=== PATIENT | female | born 1965 | race African-American/Black ===

== ENCOUNTER 2017-08-23 01:25 | Inpatient (IN) | payer OTHER, MEDICARE ==
[~2017-08-23] VITALS: Ht 165.1 cm; Wt 63.5 kg
[2017-08-23] VITALS (7 sets, daily range): BP systolic 121–160; BP diastolic 73–95
--- NOTE | 2017-08-23 01:06 | Emergency Room Report ---
History of Present Illness General Chief Complaint: Chest Pain Source: Patient, Medical Record Present Illness HPI 51-year-old female with pmhx of hypertension, end-stage renal disease on dialysis Thursday, last dialysis was Thursday today, atrial fibrillation on Coumadin, CAD with one stent, p/w chest pain for 3 hours. Chest pain started while after getting back from dialysis. Localized to substernal area, no radiation to back or other areas, sharp in nature, gradual in onset. Occurred on rest. Denies SOB. Denies palpitations, diaphoresis, n/v. Denies fever, chills, cough, abd pain. Denies trauma.. Denies smoking, no family history of cardiac disease at a young age. EMS gave 325mg Allergies: Coded Allergies: No Known Allergies (Unverified , 02/26/16) Patient History Past Medical History: see triage record Past Surgical History: none Pertinent Family History: none Last Menstrual Period: N/A Reviewed Nursing Documentation: PMH: Agreed, PSxH: Agreed Nursing Documentation-PMH Past Medical History: No History, Except For Hx Cardiac Problems: Yes - AFIB, CHF Hx Hypertension: Yes Hx Cancer: No - Right hip arthroplasty 07/2017, spinal stenosis Hx Gastrointestinal Problems: No Hx Dialysis: Yes - , , Thu Hx Neurological Problems: Yes Hx Spinal Cord Injury: Yes Hx Weakness: Yes Physical Exam Vital Signs Date Time Temp Pulse Resp B/P (MAP) Pulse Ox O2 Delivery O2 Flow Rate FiO2 08/23/17 01:22 98.8 108 13 160/94 100 Room Air Procedures Critical Care Time Critical Care Time 40 minutes of CC time 51-year-old female, end stage renal disease, atrial fibrillation, presenting with chest pain VS: Tachycardic Airway patent. Not hypoxic. PLAN: IV access, labs, troponin Anticipate admission to Tele CC time also includes review of labs, review of EMR, discussion with family and paperwork from SNF, d/w hospitalist CC could include dosing of pressors, additional Abx CC time does not include procedures Medical Decision Making Diagnostic Impression: Primary Impression: ACS (acute coronary syndrome) Additional Impression: ESRD (end stage renal disease) ER Course 51 yo F esrd w/ cp DDX: ACS vs. CHF vs. pneumonia vs. gastritis/GERD vs. pneumothorax Plan: IV access, obtain labs including troponin, EKG, CXR ASA already given by ems Anticipate admission ER course: given pain meds Disposition: Patient requires admission for chest pain. Due to patient's history and comorbidities, patient has increased risk of acute cardiac event. Patient requires admission for further workup, serial troponin, and possible stress test/cath inpatient. D/W hospitalist Please note that this Emergency Department Report was dictated using [employer] quality [employer] technology software, occasionally this can lead to erroneous entry secondary to interpretation by the dictation equipment. EKG Diagnostic Results EP Interpretation: Yes Rate: Tachycardic Rhythm: Atrial fibrillation ST Segments: T wave inversion in V6 and lead 3 ASA given to patient: Yes Rhythm Strip EP Interpretation: Yes Rate: 100 and Rhythm: Atrial fibrillation Chest X-ray CXR: Ordered: Yes 1 view Indication: Chest pain EP interpretation: Yes Interpretation: Cardiomegaly Impression: Cardiomegaly Electronically signed by Esdras Eagle MD Last Vital Signs Date Time Temp Pulse Resp B/P (MAP) Pulse Ox O2 Delivery O2 Flow Rate FiO2 08/23/17 01:30 98.8 103 13 160/94 100 Room Air Disposition: ADMITTED INPATIENT Condition: Serious Esdras Eagle M.D. Aug 23, 2017 01:06
[2017-08-23 01:32] LABS: MEAN CORPUSCULAR HEMOGLOBIN 31.4 PG (27.0-31.0); MEAN CORPUSCULAR VOLUME 101 FL (80-99); MEAN PLATELET VOLUME 7.1 FL (6.5-10.1); PLATELET COUNT 162 K/UL (150-450); RED CELL DISTRIBUTION WIDTH 18.5 % (11.6-14.8); WHITE BLOOD COUNT 6.7 K/UL (4.8-10.8)
[2017-08-23] MEDS ORDERED: XANAX1 MG ORAL (01:45)
[2017-08-23] MEDS ORDERED: LABETALOL HCL100 MG ORAL (01:45)
[2017-08-23] MEDS ORDERED: SENSIPAR30 MG ORAL (01:45)
[2017-08-23] MEDS ORDERED: ELIQUIS2.5 MG PO (01:45)
[2017-08-23] MEDS ORDERED: RENVELA0.8 GM ORAL (01:45)
[2017-08-23] MEDS ORDERED: PROAIR HFA8.5 GM INH (01:45)
[2017-08-23] MEDS ORDERED: DILAUDID2 MG ORAL (01:45)
[2017-08-23] MEDS ORDERED: DOCUSATE SODIU100 MG ORAL (01:45)
[2017-08-23] MEDS ORDERED: ZOFRAN8 MG ORAL (01:45)
[2017-08-23 01:50] LABS: INR 1.1 (0.9-1.1)
[2017-08-23 01:51] LABS: ALANINE AMINOTRANSFERASE 11 U/L (12-78); ALBUMIN/GLOBULIN RATIO 0.6 (1.0-2.7); ANION GAP 9 mmol/L (5-15); ASPARTATE AMINO TRANSFERASE 16 U/L (15-37); CALCIUM 11.1 MG/DL (8.5-10.1); CARBON DIOXIDE 32 MMOL/L (21-32); CHLORIDE 97 MMOL/L (98-107); CREATININE 3.8 MG/DL (0.55-1.30); GLOMERULAR FILTRATION RATE 12.6 mL/min (>60); POTASSIUM 4.2 MMOL/L (3.5-5.1); SODIUM 138 MMOL/L (136-145); TOTAL PROTEIN 8.2 G/DL (6.4-8.2)
[2017-08-23 01:53] LABS: BAND NEUTROPHILS % (MANUAL) 0 % (0-8); BASOPHILS % (MANUAL) 0 % (0-2); EOSINOPHILS % (MANUAL) 5 % (0-3); LYMPHOCYTES % (MANUAL) 5 % (20-45); NEUTROPHILS % (MANUAL) 84 % (45-75); PLATELET ESTIMATE ADEQUATE; PLATELET MORPHOLOGY NORMAL; TOTAL CELLS COUNTED 100
[2017-08-23] MEDS ORDERED: HYDROmorphone 1mg/ml Carpuject IVP ONE (02:00)
[2017-08-23] MEDS ORDERED: dilTIAZem HCl 25mg/5ml Inj IVP ONE (06:15)
--- NOTE | 2017-08-23 11:09 | Diagnostic Imaging Report ---
Indication: Chest pain Technique: CHEST 1 VIEW Comparison:03/01/16 Findings: The heart is enlarged. There is pulmonary vascular prominence and redistribution. Hardware is present in the cervical spine. There is blunting of the left costophrenic angle. Right right angle is sharp. Impression: Cardiomegaly with congestive heart failure. Possible left pleural effusion versus chronic change. Hardware now present in the cervical spine from previous posterior fusion.
[2017-08-23] MEDS ORDERED: HYDROmorphone 2mg tab ORAL PRN (12:30)
[2017-08-23] MEDS ORDERED: Albuterol ud Inhalation HHN PRN (12:45)
[2017-08-23] MEDS: HYDROmorphone 1mg/ml Carpuject IVP PRN ×3 (13:09→23:51)
[2017-08-23] MEDS: Eliquis 2.5mg tablet ORAL SCH ×2 (13:11→21:21)
[2017-08-23] MEDS: ALPRAZolam 0.5mg tab ORAL SCH ×2 (13:11→21:17)
--- NOTE | 2017-08-23 16:28 | Cardiology Progress Note ---
Assessment/Plan Assessment/Plan The patient is seen and examined, full consult note will be dictated. Objective Last 24 Hour Vital Signs Date Time Temp Pulse Resp B/P (MAP) Pulse Ox O2 Delivery O2 Flow Rate FiO2 08/23/17 11:52 97.7 108 18 129/83 97 Room Air 08/23/17 08:52 97.0 107 20 136/95 98 Room Air 08/23/17 08:25 100 08/23/17 08:10 98.2 105 12 121/73 99 Room Air 08/23/17 07:50 98.2 105 12 121/73 99 Room Air 08/23/17 06:18 115 130/81 08/23/17 05:30 98.2 115 20 149/81 100 Room Air 08/23/17 03:30 98.4 110 19 158/89 100 Room Air 08/23/17 02:29 98.8 08/23/17 01:30 98.8 103 13 160/94 100 Room Air 08/23/17 01:30 103 13 Room Air 08/23/17 01:22 98.8 108 13 160/94 100 Room Air Laboratory Tests Test 08/23/17 01:24 White Blood Count 6.7 K/UL (4.8-10.8) Red Blood Count 2.50 M/UL (4.20-5.40) L Hemoglobin 7.8 G/DL (12.0-16.0) L Hematocrit 25.3 % (37.0-47.0) L Mean Corpuscular Volume 101 FL (80-99) H Mean Corpuscular Hemoglobin 31.4 PG (27.0-31.0) H Mean Corpuscular Hemoglobin Concent 31.0 G/DL (32.0-36.0) L Red Cell Distribution Width 18.5 % (11.6-14.8) H Platelet Count 162 K/UL (150-450) Mean Platelet Volume 7.1 FL (6.5-10.1) Neutrophils (%) (Auto) % (45.0-75.0) Lymphocytes (%) (Auto) % (20.0-45.0) Monocytes (%) (Auto) % (1.0-10.0) Eosinophils (%) (Auto) % (0.0-3.0) Basophils (%) (Auto) % (0.0-2.0) Differential Total Cells Counted 100 Neutrophils % (Manual) 84 % (45-75) H Lymphocytes % (Manual) 5 % (20-45) L Monocytes % (Manual) 6 % (1-10) Eosinophils % (Manual) 5 % (0-3) H Basophils % (Manual) 0 % (0-2) Band Neutrophils 0 % (0-8) Platelet Estimate Adequate Platelet Morphology Normal Prothrombin Time 11.0 SEC (9.30-11.50) Prothromb Time International Ratio 1.1 (0.9-1.1) Activated Partial Thromboplast Time 28 SEC (23-33) Sodium Level 138 MMOL/L (136-145) Potassium Level 4.2 MMOL/L (3.5-5.1) Chloride Level 97 MMOL/L (98-107) L Carbon Dioxide Level 32 MMOL/L (21-32) Anion Gap 9 mmol/L (5-15) Blood Urea Nitrogen 23 mg/dL (7-18) H Creatinine 3.8 MG/DL (0.55-1.30) H Estimat Glomerular Filtration Rate 12.6 mL/min (>60) Glucose Level 95 MG/DL (74-106) Calcium Level 11.1 MG/DL (8.5-10.1) H Total Bilirubin 0.3 MG/DL (0.2-1.0) Aspartate Amino Transf (AST/SGOT) 16 U/L (15-37) Alanine Aminotransferase (ALT/SGPT) 11 U/L (12-78) L Alkaline Phosphatase 783 U/L (46-116) H Troponin I 0.039 ng/mL (0.000-0.056) Pro-B-Type Natriuretic Peptide 9176 pg/mL (0-125) H Total Protein 8.2 G/DL (6.4-8.2) Albumin 3.1 G/DL (3.4-5.0) L Globulin 5.1 g/dL Albumin/Globulin Ratio 0.6 (1.0-2.7) L ALVINO LIZARRAGA Aug 23, 2017 16:28
[2017-08-23] MEDS: Docusate 100mg cap ORAL SCH (18:21)
[2017-08-23] MEDS ORDERED: Sensipar 30mg Tab ORAL SCH (21:00)
[2017-08-24 00:49] VITALS: BP 143/105
[2017-08-24] MEDS: HYDROmorphone 1mg/ml Carpuject IVP PRN ×3 (03:18→18:57)
[2017-08-24 04:00] VITALS: BP 136/95
[2017-08-24 08:07] LABS: MEAN CORPUSCULAR HEMOGLOBIN 32.8 PG (27.0-31.0); MEAN CORPUSCULAR HGB CONC 31.9 G/DL (32.0-36.0); MEAN CORPUSCULAR VOLUME 103 FL (80-99); MEAN PLATELET VOLUME 7.2 FL (6.5-10.1); PLATELET COUNT 142 K/UL (150-450); RED BLOOD COUNT 2.19 M/UL (4.20-5.40); RED CELL DISTRIBUTION WIDTH 18.8 % (11.6-14.8); WHITE BLOOD COUNT 3.9 K/UL (4.8-10.8)
[2017-08-24 08:17] LABS: INR 1.1 (0.9-1.1); PROTHROMBIN TIME 11.1 SEC (9.30-11.50)
--- NOTE | 2017-08-24 08:19 | Consultation ---
History of Present Illness General Date patient seen: Aug 24, 2017 Present Illness Allergies: Coded Allergies: No Known Allergies (Unverified , 02/26/16) Medication History Scheduled Albuterol Sulfate* (Proair Hfa*), 1 PUFF INH Q6H, (Reported) Cinacalcet* (Sensipar*), 30 MG ORAL DAILY, (Reported) Docusate Sodium* (Docusate Sodium*), 100 MG ORAL TWICE A DAY, (Reported) Hydromorphone HCl (Dilaudid), 2 MG ORAL Q4H, (Reported) Labetalol Hcl* (Normodyne*), 50 MG ORAL EVERY 12 HOURS, (Reported) Sevelamer Carbonate* (Renvela*), 1,600 MG ORAL THREE TIMES A DAY, (Reported) Scheduled PRN Alprazolam* (Xanax*), 1 TAB ORAL BID PRN for PRN Agitation/Anxiety, (Reported) Ondansetron Hcl* (Zofran*), 8 MG ORAL Q6H PRN for Nausea & Vomiting, (Reported) Miscellaneous Medications Apixaban (Eliquis), 2.5 MG PO, (Reported) Patient History Healthcare decision maker Resuscitation status Full Code Advanced Directive on File No Physical Exam Last 24 Hour Vital Signs Date Time Temp Pulse Resp B/P (MAP) Pulse Ox O2 Delivery O2 Flow Rate FiO2 08/24/17 06:00 136/95 08/24/17 04:00 98.1 114 18 136/95 100 Room Air 08/24/17 04:00 127 08/24/17 00:49 98.5 99 19 143/105 99 Room Air 08/24/17 00:00 114 08/23/17 23:25 145/105 08/23/17 21:18 93 147/91 08/23/17 20:00 129 08/23/17 20:00 98.0 80 18 147/91 93 Room Air 08/23/17 19:30 80 16 Room Air 21 08/23/17 18:22 111 147/101 08/23/17 18:00 147/101 08/23/17 16:00 112 08/23/17 11:52 97.7 108 18 129/83 97 Room Air 08/23/17 08:52 97.0 107 20 136/95 98 Room Air 08/23/17 08:25 100 Laboratory Tests Test 08/23/17 18:00 08/24/17 06:40 Troponin I 0.038 ng/mL (0.000-0.056) White Blood Count 3.9 K/UL (4.8-10.8) L Red Blood Count 2.19 M/UL (4.20-5.40) L Hemoglobin 7.2 G/DL (12.0-16.0) L Hematocrit 22.6 % (37.0-47.0) L Mean Corpuscular Volume 103 FL (80-99) H Mean Corpuscular Hemoglobin 32.8 PG (27.0-31.0) H Mean Corpuscular Hemoglobin Concent 31.9 G/DL (32.0-36.0) L Red Cell Distribution Width 18.8 % (11.6-14.8) H Platelet Count 142 K/UL (150-450) L Mean Platelet Volume 7.2 FL (6.5-10.1) Neutrophils (%) (Auto) % (45.0-75.0) Lymphocytes (%) (Auto) % (20.0-45.0) Monocytes (%) (Auto) % (1.0-10.0) Eosinophils (%) (Auto) % (0.0-3.0) Basophils (%) (Auto) % (0.0-2.0) Neutrophils % (Manual) Pending Lymphocytes % (Manual) Pending Platelet Estimate Pending Platelet Morphology Pending Prothrombin Time Pending Prothromb Time International Ratio Pending Sodium Level Pending Potassium Level Pending Chloride Level Pending Carbon Dioxide Level Pending Blood Urea Nitrogen Pending Creatinine Pending Estimat Glomerular Filtration Rate Pending Glucose Level Pending Hemoglobin A1c Pending Uric Acid Pending Calcium Level Pending Phosphorus Level Pending Magnesium Level Pending Iron Level Pending Unsaturated Iron Binding Pending Ferritin Pending Total Bilirubin Pending Gamma Glutamyl Transpeptidase Pending Aspartate Amino Transf (AST/SGOT) Pending Alanine Aminotransferase (ALT/SGPT) Pending Alkaline Phosphatase Pending C-Reactive Protein, Quantitative Pending Pro-B-Type Natriuretic Peptide Pending Total Protein Pending Albumin Pending Globulin Pending Triglycerides Level Pending Cholesterol Level Pending LDL Cholesterol Pending HDL Cholesterol Pending Cholesterol/HDL Ratio Pending Vitamin B12 Level Pending Folate Pending Thyroid Stimulating Hormone (TSH) Pending Height (Feet): 5 Height (Inches): 5.00 Weight (Pounds): 120 Medications Current Medications Medications (Trade) Dose Ordered Sig/Sneha Route PRN Reason Start Time Stop Time Status Last Admin Dose Admin Acetaminophen (Tylenol) 650 mg Q4H PRN ORAL Mild Pain/Temp > 100.5 08/23/17 12:30 09/22/17 12:29 Acetaminophen/ Hydrocodone Bitart ([place] 10/325) 1 ea Q4H PRN ORAL Moderate Pain 08/24/17 08:15 08/31/17 08:14 UNV Albuterol Sulfate (Proventil) 2.5 mg Q6H PRN HHN Shortness of Breath 08/23/17 12:45 08/28/17 12:44 Alprazolam (Xanax) 1 mg Q12HR ORAL 08/23/17 13:00 08/30/17 12:59 08/23/17 21:17 Apixaban (Eliquis) 2.5 mg BID ORAL 08/23/17 13:00 09/22/17 12:59 08/23/17 21:21 Cinacalcet (Sensipar) 90 mg QHS ORAL 08/23/17 21:00 09/23/17 08:59 08/23/17 21:19 Clonidine HCl (Catapres) 0.1 mg EVERY 6 HOURS ORAL 08/23/17 18:00 09/22/17 17:59 08/23/17 23:25 Docusate Sodium (Colace) 100 mg TWICE A DAY ORAL 08/23/17 18:00 09/22/17 17:59 08/23/17 18:21 Epoetin Brayan (Procrit (for ESRD on dialysis)) 10,000 units THU-THU-THU SUBQ 08/24/17 21:00 09/23/17 20:59 Hydromorphone HCl (Dilaudid) 1 mg Q4H PRN IVP Severe Pain (Pain Scale 7-10) 08/23/17 13:00 08/30/17 12:59 08/24/17 03:18 Labetalol HCl (Normodyne) 200 mg Q12HR ORAL 08/23/17 21:00 09/22/17 20:59 08/23/17 21:18 Nifedipine (Procardia XL) 30 mg DAILY ORAL 08/23/17 17:00 09/22/17 16:59 08/23/17 18:22 Ondansetron HCl (Zofran) 4 mg Q6H PRN IVP Nausea & Vomiting 08/23/17 12:30 09/22/17 12:29 Sevelamer Carbonate (Renvela) 1,600 mg THREE TIMES A DAY ORAL 08/23/17 13:00 09/22/17 12:59 08/23/17 18:22 Assessment/Plan Assessment/Plan (1) Right hip pain (2) Right hip Fx s/p ORIF (3) Cervical DDD (4) Cervical Spondylosis (5) Cervical Radiculopathy (6) H/o Cervical surgery seen dictated DAIJA FERRARI Aug 24, 2017 08:19
[2017-08-24 08:43] LABS: ALANINE AMINOTRANSFERASE 10 U/L (12-78); ALBUMIN/GLOBULIN RATIO 0.6 (1.0-2.7); ANION GAP 11 mmol/L (5-15); ASPARTATE AMINO TRANSFERASE 14 U/L (15-37); CALCIUM 9.4 MG/DL (8.5-10.1); CARBON DIOXIDE 31 MMOL/L (21-32); CHLORIDE 99 MMOL/L (98-107); CREATININE 5.6 MG/DL (0.55-1.30); GLOMERULAR FILTRATION RATE 9.8 mL/min (>60); POTASSIUM 4.5 MMOL/L (3.5-5.1); SODIUM 141 MMOL/L (136-145); TOTAL PROTEIN 7.5 G/DL (6.4-8.2)
[2017-08-24 08:49] LABS: CHOLESTEROL 159 MG/DL (< 200); CHOLESTEROL/HDL RATIO 1.8 (3.3-4.4); CRP QUANT 1.1 mg/dL (0.00-0.90); FERRITIN 555 NG/ML (8-388); MAGNESIUM 2.3 MG/DL (1.8-2.4); PHOSPHORUS 5.8 MG/DL (2.5-4.9); THYROID STIMULATING HORMONE 3.201 uiU/mL (0.360-3.740); URIC ACID 3.7 MG/DL (2.6-7.2)
[2017-08-24 08:51] LABS: ANISOCYTOSIS 1+; BAND NEUTROPHILS % (MANUAL) 0 % (0-8); BASOPHILS % (MANUAL) 0 % (0-2); EOSINOPHILS % (MANUAL) 8 % (0-3); HYPOCHROMASIA 1+; LYMPHOCYTES % (MANUAL) 12 % (20-45); MACROCYTES 1+; NEUTROPHILS % (MANUAL) 76 % (45-75); PLATELET ESTIMATE ADEQUATE; PLATELET MORPHOLOGY NORMAL; TOTAL CELLS COUNTED 100
[2017-08-24 08:56] LABS: HEMOGLOBIN A1C 5.6 % (4.3-6.0)
[2017-08-24] MEDS ORDERED: Sensipar 30mg Tab ORAL SCH (09:00)
[2017-08-24] MEDS ORDERED: Norco 10mg/325mg tab ORAL PRN (09:00)
[2017-08-24 09:16] LABS: FOLIC ACID 13.9 NG/ML (3.1-17.5); IRON 49 ug/dL (50-175); TOTAL IRON BINDING CAPACITY 204 ug/dL (250-450)
[2017-08-24] MEDS: ALPRAZolam 0.5mg tab ORAL SCH ×2 (09:36→22:25)
[2017-08-24] MEDS: Docusate 100mg cap ORAL SCH ×3 (09:36→17:49)
[2017-08-24] MEDS: Eliquis 2.5mg tablet ORAL SCH ×2 (09:37→17:49)
--- NOTE | 2017-08-24 11:31 | Consultation ---
Consult Note Consult Note asked to eval for dialysis management 51-year-old female with pmhx of hypertension, end-stage renal disease on dialysis Thursday, last dialysis was Thursday today, atrial fibrillation on Coumadin, CAD with one stent, p/w chest pain for 3 hours. Chest pain started while after getting back from dialysis. Localized to substernal area, no radiation to back or other areas, sharp in nature, gradual in onset. Occurred on rest. Denies SOB. Denies palpitations, diaphoresis, n/v. Denies fever, chills, cough, abd pain. Denies trauma.. Denies smoking, no family history of cardiac disease at a young age. EMS gave 325mg Past Medical History: No History, Except For Hx Cardiac Problems: Yes - AFIB, CHF Hx Hypertension: Yes Hx Cancer: No - Right hip arthroplasty 07/2017, spinal stenosis Hx Dialysis: Yes - , , Thu Hx Neurological Problems: Yes Hx Spinal Cord Injury: Yes Hx Weakness: Yes interviewed examined data reviewed Assessment/Plan ESRD Diaalysis via left thigh Cath- left arm aneurysmal fistual clotted CHF At fib HTN Right hip arthroplasty 07/2017, spinal stenosis cervical Radiculopathy ACS? HD and UF today- Cardio Advise- Vasc Surgical advise Keep BP and renal parameters in check 2 D Echo pending ALFREDO MONTEIRO Aug 24, 2017 11:31
[2017-08-24 11:33] VITALS: BP 121/92
--- NOTE | 2017-08-24 12:15 | Consultation ---
DATE OF CONSULTATION: 08/23/2017 HEMATOLOGY/ONCOLOGY CONSULTATION CONSULTING PHYSICIAN: Jasmeet Macias M.D. REFERRING PHYSICIAN: Keven Scott M.D. CURRENT COMPLAINTS AND HISTORY OF PRESENT ILLNESS: Dear Dr. Scott, Today, I had an opportunity to see one of your patients, Latisha Cordova, who you is well aware a 51-year-old delightful female with past medical history remarkable for anemia of kidney disease, end-stage renal disease, hemodialysis dependent, history of afib, anticoagulation with Coumadin. The patient ended up to have atypical chest pain. The patient ended up in [facility]. During evaluation, it was found that the patient developed significant anemia with hemoglobin of 7.8. My service was called to handle the issue of significant anemia. PAST MEDICAL HISTORY: 1. Anemia of chronic disease. 2. Anemia of kidney disease. 3. Atrial fibrillation. 4. Coronary artery disease. 5. History of spinal cord injury. 6. Hypertension. 7. Congestive heart failure. 8. Osteoarthritis/degenerative joint disease. 9. Status post right hip arthroplasty in July 2017. 10. Spinal stenosis. 11. History of spinal cord injury. 12. Generalized weakness. MEDICATIONS: 1. Epogen subcutaneous. 2. Labetalol. 3. Colace. 4. Catapres. 5. Procardia. 6. Xanax. 7. Eliquis. 8. Renvela. 9. . 10. Dilaudid. 11. Proventil. 12. Zofran. FAMILY HISTORY: Noncontributory. SOCIAL HISTORY: No history of smoking. No history of alcohol abuse. No history of illicit drug use. REVIEW OF SYSTEMS: GENERAL DESCRIPTION: The patient not in any significant distress, but was chronically ill. RESPIRATORY: Mild shortness of breath on exertion. GASTROINTESTINAL: The patient claimed constipation. PHYSICAL EXAMINATION: VITAL SIGNS: T-max 97, respiratory rate 20, heart rate 80, and blood pressure 130/80. HEENT: Head is normocephalic and atraumatic. NECK: Supple. No thyroid enlargement. No lymphadenopathy. LUNGS: Decreased breath sounds bilaterally with few rhonchi at the base. HEART: S1 and S2 regular. ABDOMEN: Soft and benign. No organomegaly present. Bowel sounds are present. EXTREMITIES: No cyanosis, clubbing, or edema. LABORATORY DATA: WBC is 6.7, hemoglobin 7.8, hematocrit 25.3, and platelets 162,000. INR 1.1. Creatinine 3.8. IMPRESSION: 1. Anemia of kidney disease. 2. Anemia of chronic disease. 3. Decreased hemoglobin and hematocrit, rule out gastrointestinal bleed. 4. History of anemia, iron deficiency. 5. End-stage renal disease, hemodialysis dependent. 6. Coronary artery disease. 7. Hypertension. 8. Congestive heart failure. 9. Osteoarthritis plus degenerative joint disease. 10. History of afib. 11. Anticoagulation with Eliquis. 12. Coronary artery disease. 13. Congestive heart failure. 14. History of spinal cord injury. 15. Weakness. RECOMMENDATIONS: 1. Watch count. 2. Watch coagulopathy. 3. PRBC transfusion p.r.n. basis. 4. Hemodialysis p.r.n. basis. 5. Ongoing anticoagulation with Eliquis. 6. Cardiology followup. 7. Nephrology followup. 8. Pulmonary followup. 9. Skin care. 10. Nutrition. 11. Close followup. Jasmeet Macias MD DR: Tiera JOB#: [id number] CC:
[2017-08-24 15:39] VITALS: BP 105/76
--- NOTE | 2017-08-24 16:00 | Consultation ---
DATE OF CONSULTATION: 08/24/2017 PAIN MANAGEMENT CONSULTATION CONSULTING PHYSICIAN: Mc Stockton M.D. PHYSICIAN [employer] ADVISOR: Ramya Chappell REFERRING PHYSICIAN: Keven Scott MD. CHIEF COMPLAINT: Neck and right hip pain. HISTORY OF PRESENT ILLNESS: The patient is a 51-year-old female, who is being seen on the telemetry floor of [facility] for initial comprehensive pain management consultation. The patient is reporting that she has been having right hip pain since July due to fracture status post fall, open reduction and internal fixation, has been in a residential, and was admitted into the hospital due to chest pain, ruling out ACS. At this time, also complaining of neck pain due to history of cervical surgery. As an outpatient, in the residential, receiving Dilaudid 2 mg tablet every four hours as needed for severe pain; however, when admitted into the hospital, the pain was severe and not tolerated well on tablets. Due to this, we started the patient on Dilaudid 1 mg IV every four hours as needed for severe pain and the patient is more comfortable at this time, in no acute distress. PAST MEDICAL HISTORY: Atrial fibrillation, CHF, hypertension, and end-stage renal disease, on hemodialysis. PAST SURGICAL HISTORY: Cervical surgery and right hip open reduction and internal fixation. SOCIAL HISTORY: She denies smoking tobacco, drinking alcohol, or drug abuse. ALLERGIES: No known drug allergies. MEDICATIONS: Albuterol, Sensipar, docusate, Dilaudid, Normodyne, Renvela, Xanax, Zofran, and Eliquis. REVIEW OF SYSTEMS: She denies rash, fever, chills, sweating, dizziness, drowsiness, blurred vision, sore throat, or change in weight. No shortness of breath or chest pain. No nausea, vomiting, diarrhea, or blood in the stool or urine. No bowel or bladder incontinence. No dysuria. She is complaining of right hip and neck pain. PHYSICAL EXAMINATION: GENERAL: Alert, awake, and oriented. VITAL SIGNS: Blood pressure 136/95, heart rate 114, oxygen saturation 100% respiratory rate is 18, and temperature is 98.1 degrees Fahrenheit. HEENT: PERRLA. NECK: Range of motion is decreased due to the patient's condition with tenderness as well as adenopathy with surgical scar noted in the midline of the posterior cervical area. LUNGS: Decreased breath sounds bilaterally. ABDOMEN: Benign. BACK: Range of motion is decreased in flexion and extension. EXTREMITIES/NEUROLOGICAL: Upper extremity motion is decreased due to the patient's condition. No cyanosis. No clubbing. No edema. Sensory is intact. Reflexes are not obtainable. No adenopathy. Lower extremity range of motion is decreased due to the patient's condition. No cyanosis. No clubbing. No edema. Sensory is reduced. Reflexes are not obtainable. No adenopathy. ASSESSMENT AND PLAN: This is a 51-year-old female with right hip pain, right hip fracture, status post open reduction and internal fixation, cervical degenerative disk disease, cervical spondylosis, cervical radiculopathy, and history of cervical fusion. The patient will be continued on Dilaudid 1 mg IV every four hours as needed for severe pain. We started her on [place] 10/325 mg one tablet every four hours as needed for moderate pain and parameters will be set to hold narcotics for oversedation or systolic blood pressure below 90 or diastolic blood pressure below 60. The patient was discussed with Dr. Stockton and Dr. Stockton concurred. We will follow the patient. Thank you very much for the courtesy of this consultation. Mc Stockton M.D. CHARISSE Chappell DR: Seng JOB#: [id number] CC:
[2017-08-24 16:54] VITALS: BP 109/85
--- NOTE | 2017-08-24 19:40 | Cardiology Report ---
APPROVED REPORT EXAM: Two-dimensional and M-mode echocardiogram with Doppler and color Doppler. INDICATION Congestive Heart Failure M-Mode DIMENSIONS IVSd1.4 (0.7-1.1cm)Left Atrium (MM)4.4 (1.6-4.0cm) LVDd4.3 (3.5-5.6cm)Aortic Root3.2 (2.0-3.7cm) PWd1.8 (0.7-1.1cm)Aortic Cusp Exc.2.0 (1.5-2.0cm) LVDs3.1 (2.5-4.0cm) PWs2.2 cm Normal left ventricular chamber size. Mild global left ventricular hypokinesia likely due to atrial fibrillation, left ventricular ejection fraction is estimated to be 40-45%. Ischemic cardiomyopathy cannot however, be excluded. Mild left ventricular hypertrophy. No evidence of pericardial effusion. Moderate left atrial enlargement. Severe right atrial enlargement Right ventricular chamber size is within normal limits. Focal aortic valve sclerosis with adequate cusp excursion. Thickened mitral valve leaflets with normal excursion. Severe mitral annular calcification is noted. Aortic root calcification is seen. Normal pulmonic valve structure . Normal tricuspid valve structure. IVC dilated at 2.4 cm with slight collapse suggestive of elavated RAP. A color flow and spectral Doppler study was performed and revealed: Mild mitral regurgitation. Left ventricular diastolic dysfunction not obtained due A-FIB . Moderate to severe tricuspid regurgitation. Tricuspid systolic velocities suggests peak right ventricular systolic pressure of 60 mmHg, consistent with severe pulmonary hypertension.
[2017-08-24 20:24] VITALS: BP 123/87
[2017-08-24] MEDS: DiphenhydrAMINE 50mg/ml Inj IVP PRN (22:24)
[2017-08-24] MEDS: Sensipar 30mg Tab ORAL SCH (22:24)
--- NOTE | 2017-08-24 22:29 | Cardiology Progress Note ---
Assessment/Plan Assessment/Plan 1. Atypical chest pain during HD, AMI is ruled out, echo reveals normal LV function, however WMA is seen in the anteroseptal wall, will schedule for stress test. 2. Hx of CAD, s/p PCI, continue ASA and statins. 3. Atrial fibrillation, continue Eliquis 4. Hx of HTN on labetolol and Nifedipine. Subjective Subjective No chest pain or SOB. No cardiac events. Objective Last 24 Hour Vital Signs Date Time Temp Pulse Resp B/P (MAP) Pulse Ox O2 Delivery O2 Flow Rate FiO2 08/24/17 20:24 97.2 128 20 123/87 100 08/24/17 19:30 97 16 Room Air 08/24/17 17:49 109/85 08/24/17 16:59 Room Air 21 08/24/17 16:59 Room Air 21 08/24/17 16:56 Room Air 08/24/17 16:54 97.6 16 109/85 Room Air 08/24/17 16:00 134 08/24/17 15:39 96.3 103 18 105/76 99 Room Air 08/24/17 12:30 Room Air 08/24/17 12:18 121/92 08/24/17 11:37 134 08/24/17 11:33 96.3 134 18 121/92 100 Room Air 08/24/17 09:38 67 136/95 08/24/17 09:37 67 136/95 08/24/17 08:37 67 16 Room Air 21 08/24/17 06:00 136/95 08/24/17 04:00 98.1 114 18 136/95 100 Room Air 08/24/17 04:00 127 08/24/17 00:49 98.5 99 19 143/105 99 Room Air 08/24/17 00:00 114 08/23/17 23:25 145/105 Intake and Output 08/24/17 08/25/17 19:00 07:00 Intake Total 120 ml Output Total 2117 ml Balance -1997 ml Intake Oral 120 ml Output Hemodialysis UF 2117 ml # Bowel Movements 1 2D Echo: LVEF 55%, RVSP 60 mmHg s/w severe pulmonary HTN. Laboratory Tests Test 08/24/17 06:40 White Blood Count 3.9 K/UL (4.8-10.8) L Red Blood Count 2.19 M/UL (4.20-5.40) L Hemoglobin 7.2 G/DL (12.0-16.0) L Hematocrit 22.6 % (37.0-47.0) L Mean Corpuscular Volume 103 FL (80-99) H Mean Corpuscular Hemoglobin 32.8 PG (27.0-31.0) H Mean Corpuscular Hemoglobin Concent 31.9 G/DL (32.0-36.0) L Red Cell Distribution Width 18.8 % (11.6-14.8) H Platelet Count 142 K/UL (150-450) L Mean Platelet Volume 7.2 FL (6.5-10.1) Neutrophils (%) (Auto) % (45.0-75.0) Lymphocytes (%) (Auto) % (20.0-45.0) Monocytes (%) (Auto) % (1.0-10.0) Eosinophils (%) (Auto) % (0.0-3.0) Basophils (%) (Auto) % (0.0-2.0) Differential Total Cells Counted 100 Neutrophils % (Manual) 76 % (45-75) H Lymphocytes % (Manual) 12 % (20-45) L Monocytes % (Manual) 4 % (1-10) Eosinophils % (Manual) 8 % (0-3) H Basophils % (Manual) 0 % (0-2) Band Neutrophils 0 % (0-8) Platelet Estimate Adequate Platelet Morphology Normal Hypochromasia 1+ Anisocytosis 1+ Macrocytosis 1+ Prothrombin Time 11.1 SEC (9.30-11.50) Prothromb Time International Ratio 1.1 (0.9-1.1) Sodium Level 141 MMOL/L (136-145) Potassium Level 4.5 MMOL/L (3.5-5.1) Chloride Level 99 MMOL/L (98-107) Carbon Dioxide Level 31 MMOL/L (21-32) Anion Gap 11 mmol/L (5-15) Blood Urea Nitrogen 40 mg/dL (7-18) H Creatinine 5.6 MG/DL (0.55-1.30) H Estimat Glomerular Filtration Rate 9.8 mL/min (>60) Glucose Level 100 MG/DL (74-106) Hemoglobin A1c 5.6 % (4.3-6.0) Uric Acid 3.7 MG/DL (2.6-7.2) Calcium Level 9.4 MG/DL (8.5-10.1) Phosphorus Level 5.8 MG/DL (2.5-4.9) H Magnesium Level 2.3 MG/DL (1.8-2.4) Iron Level 49 ug/dL (50-175) L Total Iron Binding Capacity 204 ug/dL (250-450) L Percent Iron Saturation 24 % (15-50) Unsaturated Iron Binding 155 ug/dL (112-346) Ferritin 555 NG/ML (8-388) H Total Bilirubin 0.3 MG/DL (0.2-1.0) Gamma Glutamyl Transpeptidase 43 U/L (5-85) Aspartate Amino Transf (AST/SGOT) 14 U/L (15-37) L Alanine Aminotransferase (ALT/SGPT) 10 U/L (12-78) L Alkaline Phosphatase 685 U/L (46-116) H C-Reactive Protein, Quantitative 1.1 mg/dL (0.00-0.90) H Pro-B-Type Natriuretic Peptide 75748 pg/mL (0-125) H Total Protein 7.5 G/DL (6.4-8.2) Albumin 2.8 G/DL (3.4-5.0) L Globulin 4.7 g/dL Albumin/Globulin Ratio 0.6 (1.0-2.7) L Triglycerides Level 33 MG/DL (0-200) Cholesterol Level 159 MG/DL (< 200) LDL Cholesterol 61 mg/dL (<100) HDL Cholesterol 86 MG/DL (40-60) H Cholesterol/HDL Ratio 1.8 (3.3-4.4) L Vitamin B12 Level 638 PG/ML (193-986) Folate 13.9 NG/ML (3.1-17.5) Thyroid Stimulating Hormone (TSH) 3.201 uiU/mL (0.360-3.740) Objective HEENT: PERRLA, EOMI, Anicteric , pale conjunctiva. NECK: No JVD, carotid upstroke 2+ B/L with o bruit LUNGS: Decreased breath sounds bilaterally. CVS: Normal S1S2, irregularly irregular, 2/6 MSM at LSB. ABDOMEN: Benign, NT/ND, + BS Ext: No evidence of edema, clubbing or cyanosis. ALVINO LIZARRAGA Aug 24, 2017 22:29
--- NOTE | 2017-08-24 22:33 | General Progress Note ---
Subjective Allergies: Coded Allergies: No Known Allergies (Unverified , 02/26/16) Objective Last 24 Hour Vital Signs Date Time Temp Pulse Resp B/P (MAP) Pulse Ox O2 Delivery O2 Flow Rate FiO2 08/24/17 22:28 128 123/87 08/24/17 20:24 97.2 128 20 123/87 100 08/24/17 19:30 97 16 Room Air 08/24/17 17:49 109/85 08/24/17 16:59 Room Air 08/24/17 16:59 Room Air 08/24/17 16:56 Room Air 08/24/17 16:54 97.6 16 109/85 Room Air 08/24/17 16:00 134 08/24/17 15:39 96.3 103 18 105/76 99 Room Air 08/24/17 12:30 Room Air 08/24/17 12:18 121/92 08/24/17 11:37 134 08/24/17 11:33 96.3 134 18 121/92 100 Room Air 08/24/17 09:38 67 136/95 08/24/17 09:37 67 136/95 08/24/17 08:37 67 16 Room Air 08/24/17 06:00 136/95 08/24/17 04:00 98.1 114 18 136/95 100 Room Air 08/24/17 04:00 127 08/24/17 00:49 98.5 99 19 143/105 99 Room Air 08/24/17 00:00 114 08/23/17 23:25 145/105 Intake and Output 08/24/17 08/25/17 19:00 07:00 Intake Total 120 ml Output Total 2117 ml Balance -1997 ml Intake Oral 120 ml Output Hemodialysis UF 2117 ml # Bowel Movements 1 Laboratory Tests 08/24/17 06:40: White Blood Count 3.9L, Red Blood Count 2.19L, Hemoglobin 7.2L, Hematocrit 22.6L , Mean Corpuscular Volume 103H, Mean Corpuscular Hemoglobin 32.8H, Mean Corpuscular Hemoglobin Concent 31.9L, Red Cell Distribution Width 18.8H, Platelet Count 142L, Mean Platelet Volume 7.2, Neutrophils (%) (Auto) , Lymphocytes (%) (Auto) , Monocytes (%) (Auto) , Eosinophils (%) (Auto) , Basophils (%) (Auto) , Differential Total Cells Counted 100, Neutrophils % ( Manual) 76H, Lymphocytes % (Manual) 12L, Monocytes % (Manual) 4, Eosinophils % ( Manual) 8H, Basophils % (Manual) 0, Band Neutrophils 0, Platelet Estimate Adequate, Platelet Morphology Normal, Hypochromasia 1+, Anisocytosis 1+, Macrocytosis 1+, Prothrombin Time 11.1, Prothromb Time International Ratio 1.1, Sodium Level 141, Potassium Level 4.5, Chloride Level 99, Carbon Dioxide Level 31, Anion Gap 11, Blood Urea Nitrogen 40H, Creatinine 5.6H, Estimat Glomerular Filtration Rate 9.8, Glucose Level 100, Hemoglobin A1c 5.6, Uric Acid 3.7, Calcium Level 9.4, Phosphorus Level 5.8H, Magnesium Level 2.3, Iron Level 49L, Total Iron Binding Capacity 204L, Percent Iron Saturation 24, Unsaturated Iron Binding 155, Ferritin 555H, Total Bilirubin 0.3, Gamma Glutamyl Transpeptidase 43, Aspartate Amino Transf (AST/SGOT) 14L, Alanine Aminotransferase (ALT/SGPT) 10L, Alkaline Phosphatase 685H, C-Reactive Protein, Quantitative 1.1H, Pro-B- Type Natriuretic Peptide 83323T, Total Protein 7.5, Albumin 2.8L, Globulin 4.7, Albumin/Globulin Ratio 0.6L, Triglycerides Level 33, Cholesterol Level 159, LDL Cholesterol 61, HDL Cholesterol 86H, Cholesterol/HDL Ratio 1.8L, Vitamin B12 Level 638, Folate 13.9, Thyroid Stimulating Hormone (TSH) 3.201 Height (Feet): 5 Height (Inches): 5.00 Weight (Pounds): 120 Lauri Macias Aug 24, 2017 22:33
[2017-08-24] MEDS: Epogen (for ESRD on dialysis) SUBQ SCH (22:55)
[2017-08-25] VITALS (7 sets, daily range): BP systolic 111–158; BP diastolic 79–99
--- NOTE | 2017-08-25 01:45 | Consultation ---
DATE OF CONSULTATION: 08/23/2017 CARDIOLOGY CONSULTATION CONSULTING PHYSICIAN: Kishan Lockett M.D. REQUESTING PHYSICIAN: Keven Scott M.D. REASON FOR CONSULTATION: Management of chest pain. HISTORY OF PRESENT ILLNESS: The patient is a very unfortunate 51-year-old female who presented to the hospital with chest pain started while she was having dialysis. The patient states that the chest pain was sharp in the left precordial area. She also complains of swelling over the left axillary area. She believes that she does not get enough hemodialysis and demanding for another session of hemodialysis. She has a history of end-stage renal disease on three days dialysis as well as hypertension, and atrial fibrillation, on Eliquis therapy. Her cardiac history is also significant for history of coronary artery disease, status post percutaneous coronary intervention in the past. PAST MEDICAL HISTORY: As mentioned above includin. End-stage renal disease, on dialysis Thursday, , and Thursday. 2. Hypertension. 3. Atrial fibrillation. 4. Coronary artery disease, status post PCI. 5. History of congestive heart failure. 6. History of spinal stenosis. PAST SURGICAL HISTORY: Right hip arthroplasty in July 2017 and history of AV fistula placement. MEDICATIONS: List of medication includes ProAir one puff inhaler q.6 h., Xanax one tablet p.o. twice daily, Eliquis 2.5 mg twice daily, Sensipar 30 mg p.o. daily, Colace 100 mg twice daily, Dilaudid 2 mg every four hours, Normodyne 50 mg q.12 h., Zofran 8 mg q.6 h. p.r.n. nausea and vomiting, and Renvela 1600 mg three times a day. ALLERGIES: No known drug allergies. HABITS: Denies any tobacco, alcohol, or illicit drug use. FAMILY HISTORY: No premature coronary artery disease in first-degree relatives. REVIEW OF SYSTEMS: HEENT: Denies any headache, diplopia, or blurred vision. CONSTITUTIONAL: Denies any fever, chills, night sweats, or weight loss. CARDIOVASCULAR: Chest pain as mentioned above. No shortness of breath. Denies any PND, orthopnea, leg swelling, syncope, or palpitation. PULMONARY: Denies any cough, hemoptysis, or wheezing. GASTROINTESTINAL: Denies any nausea, vomiting, diarrhea, constipation, abdominal pain, or GI bleed. GENITOURINARY: On hemodialysis three days a week. MUSCULOSKELETAL: Denies any arthralgia, myalgia, or any joint pain. History of right hip arthroplasty. NEUROLOGIC: Denies any motor dysfunction, sensory deficit, or altered speech. PHYSICAL EXAMINATION: VITAL SIGNS: Blood pressure at the time of arrival to the hospital was 160/94, heart rate of 108, respirations of 13, temperature 98.8 degrees Fahrenheit, and O2 saturation of 100% on room air. GENERAL: The patient is a very pleasant 51-year-old female concerned about the fact that she has been under dialyzed. No chest pain at this time. HEENT: Atraumatic and normocephalic. ENT, pupils are equal, round, and reactive to light and accommodation. Extraocular muscles intact. NECK: JVP less than 5 cm. No carotid bruit. Carotid upstrokes 2+ bilaterally. CARDIOVASCULAR: Normal S1 and S2. Tachycardic. A 2/6 mid systolic murmur at the left sternal border. PMI is at fourth intercostal space in the midclavicular line. LUNGS: Clear to auscultation bilaterally. ABDOMEN: Soft, nontender, and nondistended. No hepatosplenomegaly. Positive bowel sounds. EXTREMITIES: No evidence of edema, clubbing, or cyanosis. LABORATORY FINDINGS: WBC of 6.7, hemoglobin of 7.8, hematocrit of 25.3, and platelet count 162,000. Chemistry shows sodium of 138, potassium is 4.2, chloride 97, bicarbonate 32, BUN of 23, creatinine 3.8, glucose is 95, and calcium is 11.1, Troponin I x2 negative. ProBNP was 9176. Total cholesterol was 159, LDL cholesterol was 61, HDL was 86, and triglycerides was 33. INR was 1.1. A 2D echocardiography from 08/23/2017 had shown septal anterior wall hypokinesia with LVEF approximately 50% to 55%, moderate left atrial enlargement, severe right atrial enlargement, mild mitral regurgitation, moderate to severe tricuspid regurgitation with right ventricular systolic pressure measured at 60 mmHg consistent with severe pulmonary hypertension. A 12-lead electrocardiogram showed atrial fibrillation with rapid ventricular response at a rate of 100, T-wave inversion in lead V6 and lead III. Chest x-ray showed cardiomegaly with congestive heart failure, possible left pleural effusion versus chronic changes and presence of a hardware in the cervical spine. ASSESSMENT AND PLAN: The patient is a very unfortunate 51-year-old female, seen in Cardiology consultation at the request of Dr. Scott. 1. Most likely chest pain due to accelerated hypertension or hypervolemia. A 2D echocardiography has shown some wall motion abnormalities in the septal and anterior wall. Overall left ventricular ejection fraction was 50% to 55%. Acute myocardial infarction is ruled out. We will continue conservative management. 2. Hypertensive heart disease with relatively well controlled left ventricular ejection fraction. 3. Atrial fibrillation. We will continue with Eliquis to further prevent in future thromboembolic events. 4. History of coronary artery disease, status post percutaneous coronary intervention. 5. History of congestive heart failure, possibly diastolic heart failure. I would like to thank, Dr. Scott, for allowing me to participate in the care of this patient. Kishan Lockett M.D. DR: Jaspreet JOB#: [id number] CC:
[2017-08-25] MEDS: HYDROmorphone 1mg/ml Carpuject IVP PRN ×4 (04:48→22:32)
[2017-08-25] MEDS: DiphenhydrAMINE 50mg/ml Inj IVP PRN ×3 (06:17→21:05)
[2017-08-25 08:08] LABS: MEAN CORPUSCULAR HGB CONC 31.8 G/DL (32.0-36.0); MEAN CORPUSCULAR VOLUME 101 FL (80-99); MEAN PLATELET VOLUME 7.3 FL (6.5-10.1); PLATELET COUNT 133 K/UL (150-450); RED BLOOD COUNT 2.42 M/UL (4.20-5.40); RED CELL DISTRIBUTION WIDTH 19.3 % (11.6-14.8)
--- NOTE | 2017-08-25 08:31 | History and Physical Report ---
DATE OF ADMISSION: 08/23/2017 HISTORY OF PRESENT ILLNESS: The patient comes in with chest pain. The patient is well known to [facility] and according to is noncompliant with AV fistula. The patient has a clotted fistula and she has not been following up. The patient has end-stage renal disease, on hemodialysis. Has evidence of pleural effusion as well as . The patient has been complaining of chest pain and worsening shortness of breath, and orthopnea. Denies radiation. Denies nausea, vomiting, or diarrhea. Denies heartburn. Denies any back pain. Denies any palpitation or diaphoresis. PAST MEDICAL HISTORY: Significant for end-stage renal disease, on hemodialysis, anxiety, history of clotted fistula, constipation, chronic pain syndrome, hypertension, PTSD, and atrial fibrillation. PAST SURGICAL HISTORY: The patient has left arm fistula as well as . MEDICATIONS: Eliquis, Xanax, ProAir, labetalol, Renagel, and Zofran. ALLERGIES: No known allergies. SOCIAL HISTORY: Denies history of smoking, illicit drugs, or alcohol abuse. FAMILY HISTORY: Does have history of diabetes and hypertension. REVIEW OF SYSTEMS: HEENT: Denies headaches. RESPIRATORY: She has shortness of breath and cough. CARDIOVASCULAR: Does have chest pain for one day. Denies orthopnea. Denies radiation. GASTROINTESTINAL: Denies nausea, vomiting, or diarrhea. EXTREMITIES: Denies pain. CENTRAL NERVOUS SYSTEM: No change in vision or speech pattern. Appears weak. PHYSICAL EXAMINATION: VITAL SIGNS: Temperature 96.3 degrees, pulse is 103, blood pressure is 105/76. HEENT: PERRLA. NECK: Supple. No lymphadenopathy. CHEST: Clear to auscultation. CARDIOVASCULAR: Regular rate and rhythm. GASTROINTESTINAL: Soft, nontender, and nondistended. No organomegaly. EXTREMITIES: No edema. Reflexes are equal on both sides. There is some thrilling on the left arm fistula. Moves all extremities. LABORATORY AND DIAGNOSTIC DATA: WBC of 6.7, hemoglobin 7.8, platelets 162. Sodium 138, potassium 4.2, BUN 20, creatinine 3.8, glucose of 95. EKG no significant changes. Troponin 0.39. Calcium is 11. ASSESSMENT: 1. Hypertension. 2. End-stage renal disease, currently on hemodialysis. 3. Left pleural effusion. 4. Dyspnea 5. Chest pain. 6. History of chronic atrial fibrillation. 7. Has a dialysis access. 8. I have asked , Dr. Lockett, and Dr. Miles to see the patient with above-mentioned diagnoses and treatment. Keven Scott M.D. DR: Vicente JOB#: [id number] CC:
--- NOTE | 2017-08-25 08:53 | General Progress Note ---
Assessment/Plan Assessment/Plan (1) Right hip pain (2) Right hip Fx s/p ORIF (3) Cervical DDD (4) Cervical Spondylosis (5) Cervical Radiculopathy (6) H/o Cervical surgery Pt to be continued on the Dilaudid and Trout D/w Dr. Stockton and he concurred. Subjective Date patient seen: Aug 25, 2017 Allergies: Coded Allergies: No Known Allergies (Unverified , 02/26/16) Subjective REVIEW OF SYSTEMS: She denies rash, fever, chills, sweating, dizziness, drowsiness, blurred vision, sore throat, or change in weight. No shortness of breath or chest pain. No nausea, vomiting, diarrhea, or blood in the stool or urine. No bowel or bladder incontinence. No dysuria. She is complaining of right hip and neck pain. SUBJECTIVE: Pain is controlled and tolerated on the Dilaudid and Trout. Objective Last 24 Hour Vital Signs Date Time Temp Pulse Resp B/P (MAP) Pulse Ox O2 Delivery O2 Flow Rate FiO2 08/25/17 08:00 97.9 139 20 148/93 96 Nasal Cannula 2.0 08/25/17 07:40 100 16 Room Air 21 08/25/17 06:17 142/96 08/25/17 04:20 97.7 122 20 142/96 100 Nasal Cannula 2.0 08/25/17 04:00 139 08/25/17 01:39 157/100 08/25/17 01:34 97.8 80 20 158/92 100 Room Air 08/25/17 00:00 133 08/24/17 22:28 128 123/87 08/24/17 20:24 97.2 128 20 123/87 100 08/24/17 20:00 128 08/24/17 19:30 97 16 Room Air 21 08/24/17 17:49 109/85 08/24/17 16:59 Room Air 21 08/24/17 16:59 Room Air 21 08/24/17 16:56 Room Air 08/24/17 16:54 97.6 16 109/85 Room Air 08/24/17 16:00 134 08/24/17 15:39 96.3 103 18 105/76 99 Room Air 08/24/17 12:30 Room Air 08/24/17 12:18 121/92 08/24/17 11:37 134 08/24/17 11:33 96.3 134 18 121/92 100 Room Air 08/24/17 09:38 67 136/95 08/24/17 09:37 67 136/95 Laboratory Tests 08/25/17 06:50: White Blood Count 5.0, Red Blood Count 2.42L, Hemoglobin 7.7L, Hematocrit 24.3L , Mean Corpuscular Volume 101H, Mean Corpuscular Hemoglobin 32.0H, Mean Corpuscular Hemoglobin Concent 31.8L, Red Cell Distribution Width 19.3H, Platelet Count 133L, Mean Platelet Volume 7.3, Neutrophils (%) (Auto) , Lymphocytes (%) (Auto) , Monocytes (%) (Auto) , Eosinophils (%) (Auto) , Basophils (%) (Auto) , Neutrophils % (Manual) [Pending], Lymphocytes % (Manual) [Pending], Platelet Estimate [Pending], Platelet Morphology [Pending] Height (Feet): 5 Height (Inches): 5.00 Weight (Pounds): 120 Objective GENERAL: Alert, awake, and oriented. HEENT: PERRLA. NECK: Range of motion is decreased due to the patient's condition with tenderness as well as adenopathy with surgical scar noted in the midline of the posterior cervical area. LUNGS: Decreased breath sounds bilaterally. ABDOMEN: Benign. BACK: Range of motion is decreased in flexion and extension. EXTREMITIES: No cyanosis. No clubbing. NEUROLOGICAL: No changes. DAIJA FERRARI Aug 25, 2017 08:52
[2017-08-25] MEDS: ALPRAZolam 0.5mg tab ORAL SCH ×2 (08:59→21:00)
[2017-08-25] MEDS: Docusate 100mg cap ORAL SCH ×3 (08:59→17:56)
[2017-08-25] MEDS: Eliquis 2.5mg tablet ORAL SCH ×2 (09:00→17:56)
[2017-08-25 09:50] LABS: BAND NEUTROPHILS % (MANUAL) 1 % (0-8); BASOPHILS % (MANUAL) 0 % (0-2); EOSINOPHILS % (MANUAL) 10 % (0-3); LYMPHOCYTES % (MANUAL) 7 % (20-45); NEUTROPHILS % (MANUAL) 76 % (45-75); PLATELET ESTIMATE DECREASED; PLATELET MORPHOLOGY NORMAL; TOTAL CELLS COUNTED 100
[2017-08-25 09:51] LABS: ANISOCYTOSIS 2+; HYPOCHROMASIA 1+; MACROCYTES 1+
--- NOTE | 2017-08-25 11:58 | Diagnostic Imaging Report ---
APPROVED REPORT CPT Code: 68891 Present Symptoms Lower Extremity Pain: Comments: Hx dialysis. BILATERAL: Imaging reveals a patent deep venous system bilaterally. There is no evidence of thrombus within the femoral, popliteal or tibial segments. The greater saphenous veins are also within normal limits. Doppler indicates normal spontaneous flow within these segments. Incidental findings: Lymph node in the right inguinal area measuring 2.3 cm x 0.6 cm. Minimal irregular left common femoral artery calcified plaque.
--- NOTE | 2017-08-25 14:13 | Nephrology Progress Note ---
Assessment/Plan Problem List: (1) ESRD (end stage renal disease) (2) Cardiomegaly (3) Atrial fibrillation with RVR (4) Pleural effusion, left Assessment ESRD Diaalysis via left thigh Cath- ( left arm aneurysmal fistual clotted) left femoral permacath malfunctions CHF Ej Fx 40% global hypokinesis At fib HTN Right hip arthroplasty 07/2017, spinal stenosis cervical Radiculopathy ACS? Plan HD and UF done 08/24 next 08/26 Patient refuses change of malfunction permacath continue Cardio Advise- Vasc Surgical advise- none available yet Keep BP and renal parameters in check adjust BP meds 2 D Echo global hypokinesis and EjFx 40% Subjective ROS Limited/Unobtainable: No Constitutional: Reports: malaise, weakness Objective Objective Last 24 Hour Vital Signs Date Time Temp Pulse Resp B/P (MAP) Pulse Ox O2 Delivery O2 Flow Rate FiO2 08/25/17 12:00 109 08/25/17 11:59 97.0 111 20 115/85 100 Nasal Cannula 2.0 08/25/17 11:45 115/85 08/25/17 09:00 139 148/93 08/25/17 08:59 139 148/93 08/25/17 08:00 126 08/25/17 08:00 97.9 139 20 148/93 96 Nasal Cannula 2.0 08/25/17 07:40 100 16 Room Air 21 08/25/17 06:17 142/96 08/25/17 04:20 97.7 122 20 142/96 100 Nasal Cannula 2.0 08/25/17 04:00 139 08/25/17 01:39 157/100 08/25/17 01:34 97.8 80 20 158/92 100 Room Air 08/25/17 00:00 133 08/24/17 22:28 128 123/87 08/24/17 20:24 97.2 128 20 123/87 100 08/24/17 20:00 128 08/24/17 19:30 97 16 Room Air 21 08/24/17 17:49 109/85 08/24/17 16:59 Room Air 21 08/24/17 16:59 Room Air 21 08/24/17 16:56 Room Air 08/24/17 16:54 97.6 16 109/85 Room Air 08/24/17 16:00 134 08/24/17 15:39 96.3 103 18 105/76 99 Room Air Intake and Output 08/25/17 08/26/17 19:00 07:00 # Bowel Movements 1 Laboratory Tests 08/25/17 06:50: White Blood Count 5.0, Red Blood Count 2.42L, Hemoglobin 7.7L, Hematocrit 24.3L , Mean Corpuscular Volume 101H, Mean Corpuscular Hemoglobin 32.0H, Mean Corpuscular Hemoglobin Concent 31.8L, Red Cell Distribution Width 19.3H, Platelet Count 133L, Mean Platelet Volume 7.3, Neutrophils (%) (Auto) , Lymphocytes (%) (Auto) , Monocytes (%) (Auto) , Eosinophils (%) (Auto) , Basophils (%) (Auto) , Differential Total Cells Counted 100, Neutrophils % ( Manual) 76H, Lymphocytes % (Manual) 7L, Monocytes % (Manual) 6, Eosinophils % ( Manual) 10H, Basophils % (Manual) 0, Band Neutrophils 1, Platelet Estimate DecreasedL, Platelet Morphology Normal, Hypochromasia 1+, Anisocytosis 2+, Macrocytosis 1+ Height (Feet): 5 Height (Inches): 5.00 Weight (Pounds): 120 General Appearance: mild distress Cardiovascular: tachycardia Respiratory/Chest: decreased breath sounds Abdomen: soft, distended Extremities: other - catheter left thigh Objective no other changes ALFREDO MONTEIRO Aug 25, 2017 14:13
--- NOTE | 2017-08-25 16:21 | General Progress Note ---
Assessment/Plan Assessment/Plan IMPRESSION/PLAN: 1. Anemia of kidney disease. Nephrology service following 2. Anemia of chronic disease. No evidence of iron deficiency 3. End-stage renal disease, hemodialysis dependent. 4. Coronary artery disease. 5. Hypertension. 6. Congestive heart failure. Subjective Cardiovascular: Reports: chest pain Allergies: Coded Allergies: No Known Allergies (Unverified , 02/26/16) Subjective HD today Objective Last 24 Hour Vital Signs Date Time Temp Pulse Resp B/P (MAP) Pulse Ox O2 Delivery O2 Flow Rate FiO2 08/25/17 12:00 109 08/25/17 11:59 97.0 111 20 115/85 100 Nasal Cannula 2.0 08/25/17 11:45 115/85 08/25/17 09:00 139 148/93 08/25/17 08:59 139 148/93 08/25/17 08:00 126 08/25/17 08:00 97.9 139 20 148/93 96 Nasal Cannula 2.0 08/25/17 07:40 100 16 Room Air 21 08/25/17 06:17 142/96 08/25/17 04:20 97.7 122 20 142/96 100 Nasal Cannula 2.0 08/25/17 04:00 139 08/25/17 01:39 157/100 08/25/17 01:34 97.8 80 20 158/92 100 Room Air 08/25/17 00:00 133 08/24/17 22:28 128 123/87 08/24/17 20:24 97.2 128 20 123/87 100 08/24/17 20:00 128 08/24/17 19:30 97 16 Room Air 08/24/17 17:49 109/85 08/24/17 16:59 Room Air 21 08/24/17 16:59 Room Air 21 08/24/17 16:56 Room Air 08/24/17 16:54 97.6 16 109/85 Room Air Intake and Output 08/25/17 08/26/17 19:00 07:00 # Bowel Movements 1 Laboratory Tests 08/25/17 06:50: White Blood Count 5.0, Red Blood Count 2.42L, Hemoglobin 7.7L, Hematocrit 24.3L , Mean Corpuscular Volume 101H, Mean Corpuscular Hemoglobin 32.0H, Mean Corpuscular Hemoglobin Concent 31.8L, Red Cell Distribution Width 19.3H, Platelet Count 133L, Mean Platelet Volume 7.3, Neutrophils (%) (Auto) , Lymphocytes (%) (Auto) , Monocytes (%) (Auto) , Eosinophils (%) (Auto) , Basophils (%) (Auto) , Differential Total Cells Counted 100, Neutrophils % ( Manual) 76H, Lymphocytes % (Manual) 7L, Monocytes % (Manual) 6, Eosinophils % ( Manual) 10H, Basophils % (Manual) 0, Band Neutrophils 1, Platelet Estimate DecreasedL, Platelet Morphology Normal, Hypochromasia 1+, Anisocytosis 2+, Macrocytosis 1+ Height (Feet): 5 Height (Inches): 5.00 Weight (Pounds): 120 General Appearance: no apparent distress EENT: normal ENT inspection Neck: non-tender Cardiovascular: normal peripheral pulses Respiratory/Chest: chest wall non-tender, lungs clear Edema: trace edema 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
[2017-08-25] MEDS: Sensipar 30mg Tab ORAL SCH (21:05)
--- NOTE | 2017-08-25 21:22 | General Progress Note ---
Assessment/Plan Problem List: (1) Chest pain ICD Codes: R07.9 - Chest pain, unspecified SNOMED: 72869304 (2) Cervical radiculopathy ICD Codes: M54.12 - Radiculopathy, cervical region SNOMED: 22673967 (3) ACS (acute coronary syndrome) ICD Codes: I24.9 - Acute ischemic heart disease, unspecified SNOMED: 683598937 (4) Cardiomegaly ICD Codes: I51.7 - Cardiomegaly SNOMED: 7316189 (5) ESRD (end stage renal disease) ICD Codes: N18.6 - End stage renal disease SNOMED: 24213052 (6) Pleural effusion, left ICD Codes: J90 - Pleural effusion, not elsewhere classified SNOMED: 25399247 Status: progressing Assessment/Plan clotted hd fistula difficulty getting vascular to see the patietn repair of clotted fistula per dr garcía atypical cp htn neg trop Subjective ROS Limited/Unobtainable: Yes Allergies: Coded Allergies: No Known Allergies (Unverified , 02/26/16) Objective Last 24 Hour Vital Signs Date Time Temp Pulse Resp B/P (MAP) Pulse Ox O2 Delivery O2 Flow Rate FiO2 08/25/17 21:00 97.5 107 20 117/99 100 Room Air 08/25/17 16:16 97.2 120 20 111/79 99 Nasal Cannula 2.0 08/25/17 12:00 109 08/25/17 11:59 97.0 111 20 115/85 100 Nasal Cannula 2.0 08/25/17 11:45 115/85 08/25/17 09:00 139 148/93 08/25/17 08:59 139 148/93 08/25/17 08:00 126 08/25/17 08:00 97.9 139 20 148/93 96 Nasal Cannula 2.0 08/25/17 07:40 100 16 Room Air 21 08/25/17 06:17 142/96 08/25/17 04:20 97.7 122 20 142/96 100 Nasal Cannula 2.0 08/25/17 04:00 139 08/25/17 01:39 157/100 08/25/17 01:34 97.8 80 20 158/92 100 Room Air 08/25/17 00:00 133 08/24/17 22:28 128 123/87 Intake and Output 08/25/17 08/26/17 19:00 07:00 Intake Total 240 ml Balance 240 ml Intake Oral 240 ml # Bowel Movements 1 Laboratory Tests 08/25/17 06:50: White Blood Count 5.0, Red Blood Count 2.42L, Hemoglobin 7.7L, Hematocrit 24.3L , Mean Corpuscular Volume 101H, Mean Corpuscular Hemoglobin 32.0H, Mean Corpuscular Hemoglobin Concent 31.8L, Red Cell Distribution Width 19.3H, Platelet Count 133L, Mean Platelet Volume 7.3, Neutrophils (%) (Auto) , Lymphocytes (%) (Auto) , Monocytes (%) (Auto) , Eosinophils (%) (Auto) , Basophils (%) (Auto) , Differential Total Cells Counted 100, Neutrophils % ( Manual) 76H, Lymphocytes % (Manual) 7L, Monocytes % (Manual) 6, Eosinophils % ( Manual) 10H, Basophils % (Manual) 0, Band Neutrophils 1, Platelet Estimate DecreasedL, Platelet Morphology Normal, Hypochromasia 1+, Anisocytosis 2+, Macrocytosis 1+ Height (Feet): 5 Height (Inches): 5.00 Weight (Pounds): 120 Keven Scott MD Aug 25, 2017 21:22
--- NOTE | 2017-08-25 23:56 | Cardiology Progress Note ---
Assessment/Plan Assessment/Plan 1. Atypical chest pain during HD, AMI is ruled out, echo reveals normal LV function, however WMA is seen in the anteroseptal wall. 2. Hx of CAD, s/p PCI, continue ASA and statins. 3. Atrial fibrillation, continue Eliquis and carvedilol. 4. Hx of HTN on clonidine, replace labetolol with carvedilol for better double product control. Subjective Subjective No chest pain or SOB. Atrial fibrillation with RVR. Objective Last 24 Hour Vital Signs Date Time Temp Pulse Resp B/P (MAP) Pulse Ox O2 Delivery O2 Flow Rate FiO2 08/25/17 22:32 127/101 08/25/17 21:34 137 117/99 08/25/17 21:00 97.5 107 20 117/99 100 Room Air 08/25/17 20:00 124 08/25/17 19:30 102 16 Room Air 21 08/25/17 16:16 97.2 120 20 111/79 99 Nasal Cannula 2.0 08/25/17 12:00 109 08/25/17 11:59 97.0 111 20 115/85 100 Nasal Cannula 2.0 08/25/17 11:45 115/85 08/25/17 09:00 139 148/93 08/25/17 08:59 139 148/93 08/25/17 08:00 126 08/25/17 08:00 97.9 139 20 148/93 96 Nasal Cannula 2.0 08/25/17 07:40 100 16 Room Air 21 08/25/17 06:17 142/96 08/25/17 04:20 97.7 122 20 142/96 100 Nasal Cannula 2.0 08/25/17 04:00 139 08/25/17 01:39 157/100 08/25/17 01:34 97.8 80 20 158/92 100 Room Air 08/25/17 00:00 133 Intake and Output 08/25/17 08/26/17 19:00 07:00 Intake Total 240 ml Balance 240 ml Intake Oral 240 ml # Bowel Movements 1 2D Echo: LVEF 55%, RVSP 60 mmHg s/w severe pulmonary HTN. Laboratory Tests Test 08/25/17 06:50 White Blood Count 5.0 K/UL (4.8-10.8) Red Blood Count 2.42 M/UL (4.20-5.40) L Hemoglobin 7.7 G/DL (12.0-16.0) L Hematocrit 24.3 % (37.0-47.0) L Mean Corpuscular Volume 101 FL (80-99) H Mean Corpuscular Hemoglobin 32.0 PG (27.0-31.0) H Mean Corpuscular Hemoglobin Concent 31.8 G/DL (32.0-36.0) L Red Cell Distribution Width 19.3 % (11.6-14.8) H Platelet Count 133 K/UL (150-450) L Mean Platelet Volume 7.3 FL (6.5-10.1) Neutrophils (%) (Auto) % (45.0-75.0) Lymphocytes (%) (Auto) % (20.0-45.0) Monocytes (%) (Auto) % (1.0-10.0) Eosinophils (%) (Auto) % (0.0-3.0) Basophils (%) (Auto) % (0.0-2.0) Differential Total Cells Counted 100 Neutrophils % (Manual) 76 % (45-75) H Lymphocytes % (Manual) 7 % (20-45) L Monocytes % (Manual) 6 % (1-10) Eosinophils % (Manual) 10 % (0-3) H Basophils % (Manual) 0 % (0-2) Band Neutrophils 1 % (0-8) Platelet Estimate Decreased L Platelet Morphology Normal Hypochromasia 1+ Anisocytosis 2+ Macrocytosis 1+ Objective HEENT: PERRLA, EOMI, Anicteric , pale conjunctiva. NECK: No JVD, carotid upstroke 2+ B/L with o bruit LUNGS: Decreased breath sounds bilaterally. CVS: Normal S1S2, irregularly irregular, tachycardia, 2/6 MSM at LSB. ABDOMEN: Benign, NT/ND, + BS Ext: No evidence of edema, clubbing or cyanosis. ALVINO LIZARRAGA Aug 25, 2017 23:55
[2017-08-26] VITALS (8 sets, daily range): BP systolic 129–155; BP diastolic 82–111
[2017-08-26] MEDS: HYDROmorphone 1mg/ml Carpuject IVP PRN ×5 (02:29→20:00)
[2017-08-26 07:21] LABS: BASOPHILS % (AUTO) 1.7 % (0.0-2.0); EOSINOPHILS % (AUTO) 11.2 % (0.0-3.0); LYMPHOCYTES % (AUTO) 6.8 % (20.0-45.0); MEAN CORPUSCULAR HEMOGLOBIN 32.9 PG (27.0-31.0); MEAN CORPUSCULAR HGB CONC 34.1 G/DL (32.0-36.0); MEAN CORPUSCULAR VOLUME 97 FL (80-99); MEAN PLATELET VOLUME 7.7 FL (6.5-10.1); MONOCYTES % (AUTO) 9.5 % (1.0-10.0); NEUTROPHILS % (AUTO) 70.8 % (45.0-75.0); PLATELET COUNT 125 K/UL (150-450); RED BLOOD COUNT 2.49 M/UL (4.20-5.40); WHITE BLOOD COUNT 4.8 K/UL (4.8-10.8)
--- NOTE | 2017-08-26 08:13 | General Progress Note ---
Assessment/Plan Assessment/Plan (1) Right hip pain (2) Right hip Fx s/p ORIF (3) Cervical DDD (4) Cervical Spondylosis (5) Cervical Radiculopathy (6) H/o Cervical surgery Pt to be continued on the Dilaudid and [place] D/w Dr. Stockton and he concurred. Subjective Date patient seen: Aug 26, 2017 Time patient seen: 07:45 - am Allergies: Coded Allergies: No Known Allergies (Unverified , 02/26/16) Subjective REVIEW OF SYSTEMS: She denies rash, fever, chills, sweating, dizziness, drowsiness, blurred vision, sore throat, or change in weight. No shortness of breath or chest pain. No nausea, vomiting, diarrhea, or blood in the stool or urine. No bowel or bladder incontinence. No dysuria. She is complaining of right hip and neck pain. SUBJECTIVE: She is in bed and it has been tolerated on the Dilaudid. Objective Last 24 Hour Vital Signs Date Time Temp Pulse Resp B/P (MAP) Pulse Ox O2 Delivery O2 Flow Rate FiO2 08/26/17 07:49 97.5 116 18 138/111 100 Room Air 08/26/17 06:00 139/90 08/26/17 04:05 98.0 147 20 139/90 100 Nasal Cannula 2.0 08/26/17 04:00 131 08/26/17 00:00 98.2 120 20 137/97 96 Room Air 08/26/17 00:00 128 08/25/17 22:32 127/101 08/25/17 21:34 137 117/99 08/25/17 21:00 97.5 107 20 117/99 100 Room Air 08/25/17 20:00 124 08/25/17 19:30 102 16 Room Air 21 08/25/17 16:16 97.2 120 20 111/79 99 Nasal Cannula 2.0 08/25/17 12:00 109 08/25/17 11:59 97.0 111 20 115/85 100 Nasal Cannula 2.0 08/25/17 11:45 115/85 08/25/17 09:00 139 148/93 08/25/17 08:59 139 148/93 Laboratory Tests 08/26/17 06:50: White Blood Count 4.8, Red Blood Count 2.49L, Hemoglobin 8.2L, Hematocrit 24.1L , Mean Corpuscular Volume 97, Mean Corpuscular Hemoglobin 32.9H, Mean Corpuscular Hemoglobin Concent 34.1, Red Cell Distribution Width 19.0H, Platelet Count 125L, Mean Platelet Volume 7.7, Neutrophils (%) (Auto) 70.8, Lymphocytes (%) (Auto) 6.8L, Monocytes (%) (Auto) 9.5, Eosinophils (%) (Auto) 11.2H, Basophils (%) (Auto) 1.7 Height (Feet): 5 Height (Inches): 5.00 Weight (Pounds): 120 Objective GENERAL: Alert, awake, and oriented. HEENT: PERRLA. NECK: Range of motion is decreased due to the patient's condition with tenderness as well as adenopathy with surgical scar noted in the midline of the posterior cervical area. LUNGS: Decreased breath sounds bilaterally. ABDOMEN: Benign. BACK: Range of motion is decreased in flexion and extension. EXTREMITIES: No cyanosis. No clubbing. NEUROLOGICAL: No changes. DAIJA FERRARI Aug 26, 2017 08:13
[2017-08-26] MEDS: DiphenhydrAMINE 50mg/ml Inj IVP PRN ×2 (08:40→21:10)
[2017-08-26] MEDS: Docusate 100mg cap ORAL SCH ×3 (08:40→18:17)
[2017-08-26] MEDS: ALPRAZolam 0.5mg tab ORAL SCH ×3 (08:41→21:34)
[2017-08-26] MEDS: Eliquis 2.5mg tablet ORAL SCH ×2 (09:00→18:17)
[2017-08-26] MEDS ORDERED: Carvedilol 12.5mg tab ORAL SCH (09:00)
[2017-08-26] MEDS: dilTIAZem HCl CD 180mg cap ORAL SCH (14:29)
--- NOTE | 2017-08-26 15:24 | Nephrology Progress Note ---
Assessment/Plan Problem List: (1) ESRD (end stage renal disease) (2) Cardiomegaly (3) Atrial fibrillation with RVR (4) Pleural effusion, left Assessment ESRD Diaalysis via left thigh Cath- ( left arm aneurysmal fistual clotted) left femoral permacath malfunctions CHF Ej Fx 40% global hypokinesis At fib HTN Right hip arthroplasty 07/2017, spinal stenosis cervical Radiculopathy ACS? Plan HD and UF done 08/24 next 08/26 Patient refuses change of malfunction permacath continue Cardio Advise- Vasc Surgical advise- none available yet Keep BP and renal parameters in check adjust BP meds 2 D Echo global hypokinesis and EjFx 40% add dig Subjective ROS Limited/Unobtainable: No Constitutional: Reports: malaise, weakness Objective Objective Last 24 Hour Vital Signs Date Time Temp Pulse Resp B/P (MAP) Pulse Ox O2 Delivery O2 Flow Rate FiO2 08/26/17 14:29 145 153/99 08/26/17 14:28 154/99 08/26/17 14:21 20 129/90 Room Air 08/26/17 14:12 Room Air 2.0 21 08/26/17 14:10 Room Air 08/26/17 13:50 153 134/98 08/26/17 13:20 Room Air 08/26/17 11:26 97.3 119 18 155/99 100 Room Air 08/26/17 10:00 Room Air 2.0 08/26/17 09:02 91 16 Room Air 08/26/17 07:49 97.5 116 18 138/111 100 Room Air 08/26/17 06:00 139/90 08/26/17 04:05 98.0 147 20 139/90 100 Nasal Cannula 2.0 08/26/17 04:00 131 08/26/17 00:00 98.2 120 20 137/97 96 Room Air 08/26/17 00:00 128 08/25/17 22:32 127/101 08/25/17 21:34 137 117/99 08/25/17 21:00 97.5 107 20 117/99 100 Room Air 08/25/17 20:00 124 08/25/17 19:30 102 16 Room Air 21 08/25/17 16:16 97.2 120 20 111/79 99 Nasal Cannula 2.0 Intake and Output 08/26/17 08/27/17 19:00 07:00 Intake Total 150 ml Output Total 1365 ml Balance -1215 ml Intake Oral 150 ml Output Hemodialysis UF 1365 ml # Bowel Movements 1 Laboratory Tests 08/26/17 06:50: White Blood Count 4.8, Red Blood Count 2.49L, Hemoglobin 8.2L, Hematocrit 24.1L , Mean Corpuscular Volume 97, Mean Corpuscular Hemoglobin 32.9H, Mean Corpuscular Hemoglobin Concent 34.1, Red Cell Distribution Width 19.0H, Platelet Count 125L, Mean Platelet Volume 7.7, Neutrophils (%) (Auto) 70.8, Lymphocytes (%) (Auto) 6.8L, Monocytes (%) (Auto) 9.5, Eosinophils (%) (Auto) 11.2H, Basophils (%) (Auto) 1.7 Height (Feet): 5 Height (Inches): 5.00 Weight (Pounds): 120 General Appearance: no apparent distress Cardiovascular: tachycardia Respiratory/Chest: decreased breath sounds Abdomen: soft Objective no other changes ALFREDO MONTEIRO Aug 26, 2017 15:24
--- NOTE | 2017-08-26 15:30 | General Progress Note ---
Assessment/Plan Problem List: (1) Chest pain ICD Codes: R07.9 - Chest pain, unspecified SNOMED: 63298140 (2) Cervical radiculopathy ICD Codes: M54.12 - Radiculopathy, cervical region SNOMED: 30736433 (3) ACS (acute coronary syndrome) ICD Codes: I24.9 - Acute ischemic heart disease, unspecified SNOMED: 984866352 (4) Cardiomegaly ICD Codes: I51.7 - Cardiomegaly SNOMED: 4166372 (5) ESRD (end stage renal disease) ICD Codes: N18.6 - End stage renal disease SNOMED: 86978969 (6) Pleural effusion, left ICD Codes: J90 - Pleural effusion, not elsewhere classified SNOMED: 49755608 Status: progressing Assessment/Plan clotted hd fistula no acute events s/p tachy not stable for dc reviewed chart and labs and meds repair of clotted fistula per dr raquel matos cp htn Subjective ROS Limited/Unobtainable: Yes Allergies: Coded Allergies: No Known Allergies (Unverified , 02/26/16) Objective Last 24 Hour Vital Signs Date Time Temp Pulse Resp B/P (MAP) Pulse Ox O2 Delivery O2 Flow Rate FiO2 08/26/17 15:24 97.1 129 18 129/90 100 Room Air 08/26/17 14:29 145 153/99 08/26/17 14:28 154/99 08/26/17 14:21 20 129/90 Room Air 08/26/17 14:12 Room Air 2.0 21 08/26/17 14:10 Room Air 08/26/17 13:50 153 134/98 08/26/17 13:20 Room Air 08/26/17 11:26 97.3 119 18 155/99 100 Room Air 08/26/17 10:00 Room Air 2.0 21 08/26/17 09:02 91 16 Room Air 21 08/26/17 07:49 97.5 116 18 138/111 100 Room Air 08/26/17 06:00 139/90 08/26/17 04:05 98.0 147 20 139/90 100 Nasal Cannula 2.0 08/26/17 04:00 131 08/26/17 00:00 98.2 120 20 137/97 96 Room Air 11/8/17 00:00 128 08/25/17 22:32 127/101 08/25/17 21:34 137 117/99 08/25/17 21:00 97.5 107 20 117/99 100 Room Air 08/25/17 20:00 124 08/25/17 19:30 102 16 Room Air 21 08/25/17 16:16 97.2 120 20 111/79 99 Nasal Cannula 2.0 Intake and Output 08/26/17 08/27/17 19:00 07:00 Intake Total 150 ml Output Total 1365 ml Balance -1215 ml Intake Oral 150 ml Output Hemodialysis UF 1365 ml # Bowel Movements 1 Laboratory Tests 08/26/17 06:50: White Blood Count 4.8, Red Blood Count 2.49L, Hemoglobin 8.2L, Hematocrit 24.1L , Mean Corpuscular Volume 97, Mean Corpuscular Hemoglobin 32.9H, Mean Corpuscular Hemoglobin Concent 34.1, Red Cell Distribution Width 19.0H, Platelet Count 125L, Mean Platelet Volume 7.7, Neutrophils (%) (Auto) 70.8, Lymphocytes (%) (Auto) 6.8L, Monocytes (%) (Auto) 9.5, Eosinophils (%) (Auto) 11.2H, Basophils (%) (Auto) 1.7 Height (Feet): 5 Height (Inches): 5.00 Weight (Pounds): 120 Keven Scott MD Aug 26, 2017 15:30
--- NOTE | 2017-08-26 19:09 | Cardiology Progress Note ---
Assessment/Plan Assessment/Plan 1. Atypical chest pain during HD, AMI is ruled out, echo reveals normal LV function, however WMA is seen in the anteroseptal wall. 2. Hx of CAD, s/p PCI, continue ASA and statins. 3. Atrial fibrillation, continue Eliquis and carvedilol. 4. Hx of HTN, continue clonidine, cardizem and coreg. Subjective Subjective Atrial fibrillation with controlled ventricular response after switching to combination of carvedilol and cardizem. Objective Last 24 Hour Vital Signs Date Time Temp Pulse Resp B/P (MAP) Pulse Ox O2 Delivery O2 Flow Rate FiO2 08/26/17 16:00 135 08/26/17 15:42 118 08/26/17 15:24 97.1 129 18 129/90 100 Room Air 08/26/17 14:29 145 153/99 08/26/17 14:28 154/99 08/26/17 14:21 20 129/90 Room Air 08/26/17 14:12 Room Air 2.0 21 08/26/17 14:10 Room Air 08/26/17 13:50 153 134/98 08/26/17 13:20 Room Air 08/26/17 12:00 127 08/26/17 11:26 97.3 119 18 155/99 100 Room Air 08/26/17 10:00 Room Air 2.0 21 08/26/17 09:02 91 16 Room Air 21 08/26/17 08:00 116 08/26/17 07:49 97.5 116 18 138/111 100 Room Air 08/26/17 06:00 139/90 08/26/17 04:05 98.0 147 20 139/90 100 Nasal Cannula 2.0 08/26/17 04:00 131 08/26/17 00:00 98.2 120 20 137/97 96 Room Air 08/26/17 00:00 128 08/25/17 22:32 127/101 08/25/17 21:34 137 117/99 08/25/17 21:00 97.5 107 20 117/99 100 Room Air 08/25/17 20:00 124 08/25/17 19:30 102 16 Room Air 21 Intake and Output 08/26/17 08/27/17 19:00 07:00 Intake Total 270 ml Output Total 1365 ml Balance -1095 ml Intake Oral 270 ml Output Hemodialysis UF 1365 ml # Bowel Movements 1 2D Echo: LVEF 55%, RVSP 60 mmHg s/w severe pulmonary HTN. Laboratory Tests Test 08/26/17 06:50 White Blood Count 4.8 K/UL (4.8-10.8) Red Blood Count 2.49 M/UL (4.20-5.40) L Hemoglobin 8.2 G/DL (12.0-16.0) L Hematocrit 24.1 % (37.0-47.0) L Mean Corpuscular Volume 97 FL (80-99) Mean Corpuscular Hemoglobin 32.9 PG (27.0-31.0) H Mean Corpuscular Hemoglobin Concent 34.1 G/DL (32.0-36.0) Red Cell Distribution Width 19.0 % (11.6-14.8) H Platelet Count 125 K/UL (150-450) L Mean Platelet Volume 7.7 FL (6.5-10.1) Neutrophils (%) (Auto) 70.8 % (45.0-75.0) Lymphocytes (%) (Auto) 6.8 % (20.0-45.0) L Monocytes (%) (Auto) 9.5 % (1.0-10.0) Eosinophils (%) (Auto) 11.2 % (0.0-3.0) H Basophils (%) (Auto) 1.7 % (0.0-2.0) Objective HEENT: PERRLA, EOMI, Anicteric , pale conjunctiva. NECK: No JVD, carotid upstroke 2+ B/L with o bruit LUNGS: Decreased breath sounds bilaterally. CVS: Normal S1S2, irregularly irregular, tachycardia, 2/6 MSM at LSB. ABDOMEN: Benign, NT/ND, + BS Ext: No evidence of edema, clubbing or cyanosis. ALVINO LIZARRAGA Aug 26, 2017 19:09
[2017-08-26] MEDS: Carvedilol 25mg Tab ORAL SCH ×2 (21:00→21:10)
[2017-08-26] MEDS: Sensipar 30mg Tab ORAL SCH (21:10)
[2017-08-26] MEDS: Epogen (for ESRD on dialysis) SUBQ SCH (21:51)
--- NOTE | 2017-08-26 23:04 | General Progress Note ---
Assessment/Plan Assessment/Plan IMPRESSION/PLAN: 1. Anemia of kidney disease. Nephrology service following -->HH better 2. Anemia of chronic disease. No evidence of iron deficiency 3. End-stage renal disease, hemodialysis dependent. 4. Coronary artery disease. 5. Hypertension. 6. Congestive heart failure. Subjective Allergies: Coded Allergies: No Known Allergies (Unverified , 02/26/16) All Systems: reviewed and negative except above Subjective NAD Objective Last 24 Hour Vital Signs Date Time Temp Pulse Resp B/P (MAP) Pulse Ox O2 Delivery O2 Flow Rate FiO2 08/26/17 21:39 136/76 08/26/17 21:20 98.2 82 18 136/82 100 Room Air 08/26/17 21:16 92.2 82 18 136/82 100 Room Air 08/26/17 21:00 82 136/76 08/26/17 20:31 84 18 Nasal Cannula 2.0 28 08/26/17 20:26 Nasal Cannula 2.0 28 08/26/17 20:00 73 08/26/17 16:00 135 08/26/17 15:42 118 08/26/17 15:24 97.1 129 18 129/90 100 Room Air 08/26/17 14:29 145 153/99 08/26/17 14:28 154/99 08/26/17 14:21 20 129/90 Room Air 08/26/17 14:12 Room Air 2.0 21 08/26/17 14:10 Room Air 08/26/17 13:50 153 134/98 08/26/17 13:20 Room Air 08/26/17 12:00 127 08/26/17 11:26 97.3 119 18 155/99 100 Room Air 08/26/17 10:00 Room Air 2.0 21 08/26/17 09:02 91 16 Room Air 21 08/26/17 08:00 116 08/26/17 07:49 97.5 116 18 138/111 100 Room Air 08/26/17 06:00 139/90 08/26/17 04:05 98.0 147 20 139/90 100 Nasal Cannula 2.0 08/26/17 04:00 131 08/26/17 00:00 98.2 120 20 137/97 96 Room Air 08/26/17 00:00 128 Intake and Output 08/26/17 08/27/17 19:00 07:00 Intake Total 270 ml Output Total 1365 ml Balance -1095 ml Intake Oral 270 ml Output Hemodialysis UF 1365 ml # Bowel Movements 1 Laboratory Tests 08/26/17 06:50: White Blood Count 4.8, Red Blood Count 2.49L, Hemoglobin 8.2L, Hematocrit 24.1L , Mean Corpuscular Volume 97, Mean Corpuscular Hemoglobin 32.9H, Mean Corpuscular Hemoglobin Concent 34.1, Red Cell Distribution Width 19.0H, Platelet Count 125L, Mean Platelet Volume 7.7, Neutrophils (%) (Auto) 70.8, Lymphocytes (%) (Auto) 6.8L, Monocytes (%) (Auto) 9.5, Eosinophils (%) (Auto) 11.2H, Basophils (%) (Auto) 1.7 Height (Feet): 5 Height (Inches): 5.00 Weight (Pounds): 120 General Appearance: no apparent distress EENT: normal ENT inspection Neck: normal alignment Skin: warm/dry Lauri Macias Aug 26, 2017 23:04
[2017-08-27] VITALS (7 sets, daily range): BP systolic 105–142; BP diastolic 67–79
[2017-08-27] MEDS: HYDROmorphone 1mg/ml Carpuject IVP PRN ×4 (00:07→17:29)
[2017-08-27] MEDS: DiphenhydrAMINE 50mg/ml Inj IVP PRN ×2 (06:38→21:53)
[2017-08-27] MEDS: ALPRAZolam 0.5mg tab ORAL SCH ×2 (08:14→21:29)
[2017-08-27] MEDS: Docusate 100mg cap ORAL SCH ×3 (08:14→17:27)
[2017-08-27] MEDS: dilTIAZem HCl CD 180mg cap ORAL SCH (08:15)
[2017-08-27] MEDS: Eliquis 2.5mg tablet ORAL SCH ×2 (08:15→17:27)
[2017-08-27] MEDS: Carvedilol 25mg Tab ORAL SCH ×2 (08:16→21:30)
[2017-08-27 08:38] LABS: MEAN CORPUSCULAR HEMOGLOBIN 30.9 PG (27.0-31.0); MEAN CORPUSCULAR HGB CONC 29.3 G/DL (32.0-36.0); MEAN CORPUSCULAR VOLUME 106 FL (80-99); MEAN PLATELET VOLUME 7.3 FL (6.5-10.1); PLATELET COUNT 131 K/UL (150-450); RED BLOOD COUNT 2.55 M/UL (4.20-5.40); RED CELL DISTRIBUTION WIDTH 18.2 % (11.6-14.8); WHITE BLOOD COUNT 5.1 K/UL (4.8-10.8)
[2017-08-27 08:44] LABS: ALANINE AMINOTRANSFERASE 12 U/L (12-78); ALBUMIN/GLOBULIN RATIO 0.6 (1.0-2.7); ANION GAP 11 mmol/L (5-15); ASPARTATE AMINO TRANSFERASE 13 U/L (15-37); CALCIUM 8.9 MG/DL (8.5-10.1); CARBON DIOXIDE 31 MMOL/L (21-32); CHLORIDE 97 MMOL/L (98-107); GLOMERULAR FILTRATION RATE 11.2 mL/min (>60); POTASSIUM 4.3 MMOL/L (3.5-5.1); SODIUM 139 MMOL/L (136-145); TOTAL PROTEIN 7.8 G/DL (6.4-8.2)
[2017-08-27 08:50] LABS: CRP QUANT 0.5 mg/dL (0.00-0.90); MAGNESIUM 2.3 MG/DL (1.8-2.4)
--- NOTE | 2017-08-27 09:12 | General Progress Note ---
Assessment/Plan Assessment/Plan (1) Right hip pain (2) Right hip Fx s/p ORIF (3) Cervical DDD (4) Cervical Spondylosis (5) Cervical Radiculopathy (6) H/o Cervical surgery Pt to be continued on the Dilaudid changed Q6H PRN and discontinue the Reynolds and start the Percocet 10/325mg PO 1 tab Q4H PRN moderate pain. We will order Xray of right hip. D/w Dr. [place] and he concurred. Subjective Date patient seen: Aug 27, 2017 Time patient seen: 08:00 - am Allergies: Coded Allergies: No Known Allergies (Unverified , 02/26/16) Subjective REVIEW OF SYSTEMS: She denies rash, fever, chills, sweating, dizziness, drowsiness, blurred vision, sore throat, or change in weight. No shortness of breath or chest pain. No nausea, vomiting, diarrhea, or blood in the stool or urine. No bowel or bladder incontinence. No dysuria. She is complaining of right hip and neck pain. SUBJECTIVE: The pain has been stable on the medication. She reports that the Reynolds has not been effective. I d/w her about reduction of the Dilaudid. Objective Last 24 Hour Vital Signs Date Time Temp Pulse Resp B/P (MAP) Pulse Ox O2 Delivery O2 Flow Rate FiO2 08/27/17 07:27 75 18 Room Air 21 08/27/17 07:27 Room Air 21 08/27/17 06:34 110/62 08/27/17 04:41 97.5 101 18 119/79 96 Room Air 08/27/17 04:00 84 08/27/17 00:31 96.4 68 18 142/68 98 08/27/17 00:00 94 08/26/17 21:39 136/76 08/26/17 21:20 98.2 82 18 136/82 100 Room Air 08/26/17 21:16 92.2 82 18 136/82 100 Room Air 08/26/17 21:00 82 136/76 08/26/17 20:31 84 18 Nasal Cannula 2.0 28 08/26/17 20:26 Nasal Cannula 2.0 28 08/26/17 20:00 73 08/26/17 16:00 135 08/26/17 15:42 118 08/26/17 15:24 97.1 129 18 129/90 100 Room Air 08/26/17 14:29 145 153/99 08/26/17 14:28 154/99 08/26/17 14:21 20 129/90 Room Air 08/26/17 14:12 Room Air 2.0 21 08/26/17 14:10 Room Air 08/26/17 13:50 153 134/98 08/26/17 13:20 Room Air 08/26/17 12:00 127 08/26/17 11:26 97.3 119 18 155/99 100 Room Air 08/26/17 10:00 Room Air 2.0 21 Laboratory Tests 08/27/17 08:00: White Blood Count 5.1, Red Blood Count 2.55L, Hemoglobin 7.9L, Hematocrit 26.9L , Mean Corpuscular Volume 106#H, Mean Corpuscular Hemoglobin 30.9, Mean Corpuscular Hemoglobin Concent 29.3L, Red Cell Distribution Width 18.2H, Platelet Count 131L, Mean Platelet Volume 7.3, Neutrophils (%) (Auto) , Lymphocytes (%) (Auto) , Monocytes (%) (Auto) , Eosinophils (%) (Auto) , Basophils (%) (Auto) , Neutrophils % (Manual) [Pending], Lymphocytes % (Manual) [Pending], Platelet Estimate [Pending], Platelet Morphology [Pending], Sodium Level 139, Potassium Level 4.3, Chloride Level 97L, Carbon Dioxide Level 31, Anion Gap 11, Blood Urea Nitrogen 39H, Creatinine 5.0H, Estimat Glomerular Filtration Rate 11.2, Glucose Level 135H, Calcium Level 8.9, Phosphorus Level 5.0H, Magnesium Level 2.3, Total Bilirubin 0.4, Aspartate Amino Transf (AST/SGOT ) 13L, Alanine Aminotransferase (ALT/SGPT) 12, Alkaline Phosphatase 738H, C- Reactive Protein, Quantitative 0.5, Pro-B-Type Natriuretic Peptide 8058H, Total Protein 7.8, Albumin 3.0L, Globulin 4.8, Albumin/Globulin Ratio 0.6L, Digoxin Level 1.0 Height (Feet): 5 Height (Inches): 5.00 Weight (Pounds): 120 Objective GENERAL: Alert, awake, and oriented. HEENT: PERRLA. NECK: Range of motion is decreased due to the patient's condition with tenderness as well as adenopathy with surgical scar noted in the midline of the posterior cervical area. LUNGS: Decreased breath sounds bilaterally. ABDOMEN: Benign. BACK: Range of motion is decreased in flexion and extension. EXTREMITIES: No cyanosis. No clubbing. NEUROLOGICAL: No changes. DAIJA FERRARI Aug 27, 2017 09:12
[2017-08-27 11:00] LABS: ANISOCYTOSIS 2+; BAND NEUTROPHILS % (MANUAL) 0 % (0-8); BASOPHILS % (MANUAL) 1 % (0-2); EOSINOPHILS % (MANUAL) 12 % (0-3); LYMPHOCYTES % (MANUAL) 7 % (20-45); MACROCYTES 1+; NEUTROPHILS % (MANUAL) 72 % (45-75); PLATELET ESTIMATE DECREASED; PLATELET MORPHOLOGY NORMAL; TOTAL CELLS COUNTED 100
--- NOTE | 2017-08-27 12:54 | Diagnostic Imaging Report ---
Indications: hip pain Findings: Two views of the right hip were obtained. Cemented total hip arthroplasty demonstrated. No malalignment or definite acute fracture is identified. The bones are severely osteopenic. Impression: Limited evaluation. No obvious acute injury
--- NOTE | 2017-08-27 16:04 | General Progress Note ---
Assessment/Plan Assessment/Plan IMPRESSION/PLAN: 1. Anemia of kidney disease. Nephrology service following --> Hgb goal above 7. Transfuse if hgb drops below 7 2. Anemia of chronic disease. No evidence of iron deficiency 3. End-stage renal disease, hemodialysis dependent. 4. Coronary artery disease. 5. Hypertension. 6. Congestive heart failure. Subjective Constitutional: Reports: no symptoms HEENT: Reports: no symptoms Cardiovascular: Reports: no symptoms Respiratory: Reports: no symptoms Gastrointestinal/Abdominal: Reports: no symptoms Neurologic/Psychiatric: Reports: no symptoms Hematologic/Lymphatic: Reports: no symptoms Allergies: Coded Allergies: No Known Allergies (Unverified , 02/26/16) Subjective Hgb down to 7.9, however no transfusion needed at this time Objective Last 24 Hour Vital Signs Date Time Temp Pulse Resp B/P (MAP) Pulse Ox O2 Delivery O2 Flow Rate FiO2 08/27/17 13:31 112/73 08/27/17 09:20 97.9 91 19 105/73 Room Air 08/27/17 08:00 97.7 91 19 105/73 Room Air 08/27/17 07:27 75 18 Room Air 21 08/27/17 07:27 Room Air 21 08/27/17 06:34 110/62 08/27/17 04:41 97.5 101 18 119/79 96 Room Air 08/27/17 04:00 84 08/27/17 00:31 96.4 68 18 142/68 98 08/27/17 00:00 94 08/26/17 21:39 136/76 08/26/17 21:20 98.2 82 18 136/82 100 Room Air 08/26/17 21:16 92.2 82 18 136/82 100 Room Air 08/26/17 21:00 82 136/76 08/26/17 20:31 84 18 Nasal Cannula 2.0 28 08/26/17 20:26 Nasal Cannula 2.0 28 08/26/17 20:00 73 Intake and Output 08/27/17 08/28/17 19:00 07:00 # Bowel Movements 1 Laboratory Tests 08/27/17 08:00: White Blood Count 5.1, Red Blood Count 2.55L, Hemoglobin 7.9L, Hematocrit 26.9L , Mean Corpuscular Volume 106#H, Mean Corpuscular Hemoglobin 30.9, Mean Corpuscular Hemoglobin Concent 29.3L, Red Cell Distribution Width 18.2H, Platelet Count 131L, Mean Platelet Volume 7.3, Neutrophils (%) (Auto) , Lymphocytes (%) (Auto) , Monocytes (%) (Auto) , Eosinophils (%) (Auto) , Basophils (%) (Auto) , Differential Total Cells Counted 100, Neutrophils % ( Manual) 72, Lymphocytes % (Manual) 7L, Monocytes % (Manual) 8, Eosinophils % ( Manual) 12H, Basophils % (Manual) 1, Band Neutrophils 0, Platelet Estimate DecreasedL, Platelet Morphology Normal, Anisocytosis 2+, Macrocytosis 1+, Sodium Level 139, Potassium Level 4.3, Chloride Level 97L, Carbon Dioxide Level 31, Anion Gap 11, Blood Urea Nitrogen 39H, Creatinine 5.0H, Estimat Glomerular Filtration Rate 11.2, Glucose Level 135H, Calcium Level 8.9, Phosphorus Level 5.0H, Magnesium Level 2.3, Total Bilirubin 0.4, Aspartate Amino Transf (AST/SGOT ) 13L, Alanine Aminotransferase (ALT/SGPT) 12, Alkaline Phosphatase 738H, C- Reactive Protein, Quantitative 0.5, Pro-B-Type Natriuretic Peptide 8058H, Total Protein 7.8, Albumin 3.0L, Globulin 4.8, Albumin/Globulin Ratio 0.6L, Digoxin Level 1.0 Height (Feet): 5 Height (Inches): 5.00 Weight (Pounds): 120 General Appearance: no apparent distress EENT: TMs normal Neck: non-tender Respiratory/Chest: decreased breath sounds 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
--- NOTE | 2017-08-27 16:11 | Nephrology Progress Note ---
Assessment/Plan Problem List: (1) ESRD (end stage renal disease) (2) Cardiomegaly (3) Atrial fibrillation with RVR (4) Pleural effusion, left Assessment ESRD Diaalysis via left thigh Cath- ( left arm aneurysmal fistual clotted) left femoral permacath malfunctions CHF Ej Fx 40% global hypokinesis At fib HTN Right hip arthroplasty 07/2017, spinal stenosis cervical Radiculopathy ACS? Plan HD and UF next 08/28 Patient refuses change of malfunction permacath continue Cardio Advise- Vasc Surgical advise- none available yet Keep BP and renal parameters in check adjust BP meds 2 D Echo global hypokinesis and EjFx 40% add dig unsafe to go home with femoral cath Subjective ROS Limited/Unobtainable: No Constitutional: Reports: malaise, weakness Objective Objective Last 24 Hour Vital Signs Date Time Temp Pulse Resp B/P (MAP) Pulse Ox O2 Delivery O2 Flow Rate FiO2 08/27/17 13:31 112/73 08/27/17 09:20 97.9 91 19 105/73 Room Air 08/27/17 08:00 97.7 91 19 105/73 Room Air 08/27/17 07:27 75 18 Room Air 21 08/27/17 07:27 Room Air 21 08/27/17 06:34 110/62 08/27/17 04:41 97.5 101 18 119/79 96 Room Air 08/27/17 04:00 84 08/27/17 00:31 96.4 68 18 142/68 98 08/27/17 00:00 94 08/26/17 21:39 136/76 08/26/17 21:20 98.2 82 18 136/82 100 Room Air 08/26/17 21:16 92.2 82 18 136/82 100 Room Air 08/26/17 21:00 82 136/76 08/26/17 20:31 84 18 Nasal Cannula 2.0 28 08/26/17 20:26 Nasal Cannula 2.0 28 08/26/17 20:00 73 Intake and Output 08/27/17 08/28/17 19:00 07:00 # Bowel Movements 1 Laboratory Tests 08/27/17 08:00: White Blood Count 5.1, Red Blood Count 2.55L, Hemoglobin 7.9L, Hematocrit 26.9L , Mean Corpuscular Volume 106#H, Mean Corpuscular Hemoglobin 30.9, Mean Corpuscular Hemoglobin Concent 29.3L, Red Cell Distribution Width 18.2H, Platelet Count 131L, Mean Platelet Volume 7.3, Neutrophils (%) (Auto) , Lymphocytes (%) (Auto) , Monocytes (%) (Auto) , Eosinophils (%) (Auto) , Basophils (%) (Auto) , Differential Total Cells Counted 100, Neutrophils % ( Manual) 72, Lymphocytes % (Manual) 7L, Monocytes % (Manual) 8, Eosinophils % ( Manual) 12H, Basophils % (Manual) 1, Band Neutrophils 0, Platelet Estimate DecreasedL, Platelet Morphology Normal, Anisocytosis 2+, Macrocytosis 1+, Sodium Level 139, Potassium Level 4.3, Chloride Level 97L, Carbon Dioxide Level 31, Anion Gap 11, Blood Urea Nitrogen 39H, Creatinine 5.0H, Estimat Glomerular Filtration Rate 11.2, Glucose Level 135H, Calcium Level 8.9, Phosphorus Level 5.0H, Magnesium Level 2.3, Total Bilirubin 0.4, Aspartate Amino Transf (AST/SGOT ) 13L, Alanine Aminotransferase (ALT/SGPT) 12, Alkaline Phosphatase 738H, C- Reactive Protein, Quantitative 0.5, Pro-B-Type Natriuretic Peptide 8058H, Total Protein 7.8, Albumin 3.0L, Globulin 4.8, Albumin/Globulin Ratio 0.6L, Digoxin Level 1.0 Height (Feet): 5 Height (Inches): 5.00 Weight (Pounds): 120 General Appearance: no apparent distress Objective no other changes ALFREDO MONTEIRO Aug 27, 2017 16:11
--- NOTE | 2017-08-27 21:24 | General Progress Note ---
Assessment/Plan Problem List: (1) Chest pain ICD Codes: R07.9 - Chest pain, unspecified SNOMED: 36915920 (2) Cervical radiculopathy ICD Codes: M54.12 - Radiculopathy, cervical region SNOMED: 03427258 (3) ACS (acute coronary syndrome) ICD Codes: I24.9 - Acute ischemic heart disease, unspecified SNOMED: 715218010 (4) Cardiomegaly ICD Codes: I51.7 - Cardiomegaly SNOMED: 2383359 (5) ESRD (end stage renal disease) ICD Codes: N18.6 - End stage renal disease SNOMED: 41866045 (6) Pleural effusion, left ICD Codes: J90 - Pleural effusion, not elsewhere classified SNOMED: 49616328 Assessment/Plan clotted hd fistula is repaired no acute events s/p tachy has noncompliance and not safe to go home recommend snf only has femoral cath in Subjective ROS Limited/Unobtainable: Yes Allergies: Coded Allergies: No Known Allergies (Unverified , 02/26/16) Objective Last 24 Hour Vital Signs Date Time Temp Pulse Resp B/P (MAP) Pulse Ox O2 Delivery O2 Flow Rate FiO2 08/27/17 19:26 86 18 Room Air 08/27/17 19:26 Room Air 08/27/17 17:25 106 08/27/17 16:00 93 08/27/17 16:00 97.7 91 18 109/78 100 Room Air 08/27/17 13:31 112/73 08/27/17 12:00 79 08/27/17 12:00 97.3 89 19 112/67 97 Room Air 08/27/17 09:20 97.9 91 19 105/73 Room Air 08/27/17 08:00 97.7 91 19 105/73 Room Air 08/27/17 08:00 86 08/27/17 07:27 75 18 Room Air 21 08/27/17 07:27 Room Air 21 08/27/17 06:34 110/62 08/27/17 04:41 97.5 101 18 119/79 96 Room Air 08/27/17 04:00 84 08/27/17 00:31 96.4 68 18 142/68 98 08/27/17 00:00 94 08/26/17 21:39 136/76 Intake and Output 08/27/17 08/28/17 19:00 07:00 Intake Total 240 ml Balance 240 ml Intake Oral 240 ml # Bowel Movements 1 Laboratory Tests 08/27/17 08:00: White Blood Count 5.1, Red Blood Count 2.55L, Hemoglobin 7.9L, Hematocrit 26.9L , Mean Corpuscular Volume 106#H, Mean Corpuscular Hemoglobin 30.9, Mean Corpuscular Hemoglobin Concent 29.3L, Red Cell Distribution Width 18.2H, Platelet Count 131L, Mean Platelet Volume 7.3, Neutrophils (%) (Auto) , Lymphocytes (%) (Auto) , Monocytes (%) (Auto) , Eosinophils (%) (Auto) , Basophils (%) (Auto) , Differential Total Cells Counted 100, Neutrophils % ( Manual) 72, Lymphocytes % (Manual) 7L, Monocytes % (Manual) 8, Eosinophils % ( Manual) 12H, Basophils % (Manual) 1, Band Neutrophils 0, Platelet Estimate DecreasedL, Platelet Morphology Normal, Anisocytosis 2+, Macrocytosis 1+, Sodium Level 139, Potassium Level 4.3, Chloride Level 97L, Carbon Dioxide Level 31, Anion Gap 11, Blood Urea Nitrogen 39H, Creatinine 5.0H, Estimat Glomerular Filtration Rate 11.2, Glucose Level 135H, Calcium Level 8.9, Phosphorus Level 5.0H, Magnesium Level 2.3, Total Bilirubin 0.4, Aspartate Amino Transf (AST/SGOT ) 13L, Alanine Aminotransferase (ALT/SGPT) 12, Alkaline Phosphatase 738H, C- Reactive Protein, Quantitative 0.5, Pro-B-Type Natriuretic Peptide 8058H, Total Protein 7.8, Albumin 3.0L, Globulin 4.8, Albumin/Globulin Ratio 0.6L, Digoxin Level 1.0 Height (Feet): 5 Height (Inches): 5.00 Weight (Pounds): 120 Respiratory/Chest: lungs clear Keven Scott MD Aug 27, 2017 21:24
[2017-08-27] MEDS: Sensipar 30mg Tab ORAL SCH (21:30)
[2017-08-28] VITALS (7 sets, daily range): BP systolic 94–139; BP diastolic 65–96
[2017-08-28] MEDS: HYDROmorphone 1mg/ml Carpuject IVP PRN ×3 (05:08→21:42)
[2017-08-28] MEDS: DiphenhydrAMINE 50mg/ml Inj IVP PRN ×3 (05:18→21:45)
[2017-08-28 08:40] LABS: MEAN CORPUSCULAR HEMOGLOBIN 31.1 PG (27.0-31.0); MEAN CORPUSCULAR HGB CONC 29.4 G/DL (32.0-36.0); MEAN CORPUSCULAR VOLUME 106 FL (80-99); MEAN PLATELET VOLUME 6.6 FL (6.5-10.1); PLATELET COUNT 127 K/UL (150-450); RED BLOOD COUNT 2.53 M/UL (4.20-5.40); RED CELL DISTRIBUTION WIDTH 18.6 % (11.6-14.8); WHITE BLOOD COUNT 4.7 K/UL (4.8-10.8)
[2017-08-28] MEDS: ALPRAZolam 0.5mg tab ORAL SCH ×2 (09:30→21:34)
[2017-08-28] MEDS: Carvedilol 25mg Tab ORAL SCH ×2 (09:33→21:47)
--- NOTE | 2017-08-28 09:33 | General Progress Note ---
Assessment/Plan Assessment/Plan (1) Right hip pain (2) Right hip Fx s/p ORIF (3) Cervical DDD (4) Cervical Spondylosis (5) Cervical Radiculopathy (6) H/o Cervical surgery Pt to be continued on the Dilaudid and Percocet. RX for Dilaudid 2mg PO 1 tab Q4-6H PRN 15 tabs was written for pt in anticipation for discharge. D/w Dr. Stockton and he concurred. Subjective Date patient seen: Aug 28, 2017 Time patient seen: 07:30 - am Allergies: Coded Allergies: No Known Allergies (Unverified , 02/26/16) Subjective REVIEW OF SYSTEMS: She denies rash, fever, chills, sweating, dizziness, drowsiness, blurred vision, sore throat, or change in weight. No shortness of breath or chest pain. No nausea, vomiting, diarrhea, or blood in the stool or urine. No bowel or bladder incontinence. No dysuria. She is complaining of right hip and neck pain. SUBJECTIVE: The patient reports that the pain has been tolerated well and is looking to do PT. Xray was reviewed and d/w pt. Objective Last 24 Hour Vital Signs Date Time Temp Pulse Resp B/P (MAP) Pulse Ox O2 Delivery O2 Flow Rate FiO2 08/28/17 05:49 126/89 08/28/17 05:38 97.8 08/28/17 04:00 98.5 110 18 126/89 99 Room Air 97 08/28/17 04:00 101 08/28/17 00:00 97.2 97 20 139/75 99 Room Air 08/28/17 00:00 103 08/27/17 21:53 148/64 08/27/17 21:30 112 142/96 08/27/17 20:00 97.2 96 20 133/78 96 Room Air 08/27/17 20:00 101 08/27/17 19:26 86 18 Room Air 08/27/17 19:26 Room Air 08/27/17 17:25 106 08/27/17 16:00 93 08/27/17 16:00 97.7 91 18 109/78 100 Room Air 08/27/17 13:31 112/73 08/27/17 12:00 79 08/27/17 12:00 97.3 89 19 112/67 97 Room Air Laboratory Tests 08/28/17 06:55: White Blood Count 4.7L, Red Blood Count 2.53L, Hemoglobin 7.9L, Hematocrit 26.7L , Mean Corpuscular Volume 106H, Mean Corpuscular Hemoglobin 31.1H, Mean Corpuscular Hemoglobin Concent 29.4L, Red Cell Distribution Width 18.6H, Platelet Count 127L, Mean Platelet Volume 6.6, Neutrophils (%) (Auto) , Lymphocytes (%) (Auto) , Monocytes (%) (Auto) , Eosinophils (%) (Auto) , Basophils (%) (Auto) , Neutrophils % (Manual) [Pending], Lymphocytes % (Manual) [Pending], Platelet Estimate [Pending], Platelet Morphology [Pending] Height (Feet): 5 Height (Inches): 5.00 Weight (Pounds): 127 Objective GENERAL: Alert, awake, and oriented. HEENT: PERRLA. NECK: Range of motion is decreased due to the patient's condition with tenderness as well as adenopathy with surgical scar noted in the midline of the posterior cervical area. LUNGS: Decreased breath sounds bilaterally. ABDOMEN: Benign. BACK: Range of motion is decreased in flexion and extension. EXTREMITIES: No cyanosis. No clubbing. NEUROLOGICAL: No changes. Procedure: XRAY Hip Routine 2v+ R Indications: hip pain Findings: Cemented total hip arthroplasty demonstrated. No malalignment or definite acute fracture is identified. The bones are severely osteopenic. DAIJA FERRARI Aug 28, 2017 09:33
[2017-08-28] MEDS: Docusate 100mg cap ORAL SCH ×3 (09:34→18:13)
[2017-08-28] MEDS: Eliquis 2.5mg tablet ORAL SCH ×2 (09:34→18:13)
[2017-08-28] MEDS: dilTIAZem HCl CD 180mg cap ORAL SCH (09:35)
[2017-08-28 09:59] LABS: BAND NEUTROPHILS % (MANUAL) 0 % (0-8); BASOPHILS % (MANUAL) 0 % (0-2); EOSINOPHILS % (MANUAL) 12 % (0-3); LYMPHOCYTES % (MANUAL) 7 % (20-45); NEUTROPHILS % (MANUAL) 78 % (45-75); PLATELET ESTIMATE DECREASED; TOTAL CELLS COUNTED 100
[2017-08-28 10:00] LABS: PLATELET MORPHOLOGY NORMAL
--- NOTE | 2017-08-28 12:22 | Nephrology Progress Note ---
Assessment/Plan Problem List: (1) ESRD (end stage renal disease) (2) Cardiomegaly (3) Atrial fibrillation with RVR (4) Pleural effusion, left Assessment ESRD Diaalysis via left thigh Cath- ( left arm aneurysmal fistual clotted) left femoral permacath malfunctions CHF Ej Fx 40% global hypokinesis At fib HTN Right hip arthroplasty 07/2017, spinal stenosis cervical Radiculopathy ACS? Plan HD and UF next 08/28- done Patient refuses change of malfunction permacath continue Cardio Advise- Vasc Surgical advise- none available yet Keep BP and renal parameters in check adjust BP meds 2 D Echo global hypokinesis and EjFx 40% add dig unsafe to go home with femoral cath Subjective ROS Limited/Unobtainable: No Objective Objective Last 24 Hour Vital Signs Date Time Temp Pulse Resp B/P (MAP) Pulse Ox O2 Delivery O2 Flow Rate FiO2 08/28/17 12:02 Room Air 21 08/28/17 12:02 79 18 Room Air 21 08/28/17 09:35 117 122/96 08/28/17 09:33 117 122/96 08/28/17 08:00 117 08/28/17 08:00 98.1 95 20 122/96 96 Room Air 08/28/17 05:49 126/89 08/28/17 05:38 97.8 08/28/17 04:00 98.5 110 18 126/89 99 Room Air 97 08/28/17 04:00 101 08/28/17 00:00 97.2 97 20 139/75 99 Room Air 08/28/17 00:00 103 08/27/17 21:53 148/64 08/27/17 21:30 112 142/96 08/27/17 20:00 97.2 96 20 133/78 96 Room Air 08/27/17 20:00 101 08/27/17 19:26 86 18 Room Air 08/27/17 19:26 Room Air 08/27/17 17:25 106 08/27/17 16:00 93 08/27/17 16:00 97.7 91 18 109/78 100 Room Air 08/27/17 13:31 112/73 Laboratory Tests 08/28/17 06:55: White Blood Count 4.7L, Red Blood Count 2.53L, Hemoglobin 7.9L, Hematocrit 26.7L , Mean Corpuscular Volume 106H, Mean Corpuscular Hemoglobin 31.1H, Mean Corpuscular Hemoglobin Concent 29.4L, Red Cell Distribution Width 18.6H, Platelet Count 127L, Mean Platelet Volume 6.6, Neutrophils (%) (Auto) , Lymphocytes (%) (Auto) , Monocytes (%) (Auto) , Eosinophils (%) (Auto) , Basophils (%) (Auto) , Differential Total Cells Counted 100, Neutrophils % ( Manual) 78H, Lymphocytes % (Manual) 7L, Monocytes % (Manual) 3, Eosinophils % ( Manual) 12H, Basophils % (Manual) 0, Band Neutrophils 0, Platelet Estimate DecreasedL, Platelet Morphology Normal Height (Feet): 5 Height (Inches): 5.00 Weight (Pounds): 127 General Appearance: no apparent distress Objective no other changes ALFREDO MONTEIRO Aug 28, 2017 12:22
--- NOTE | 2017-08-28 16:33 | General Progress Note ---
Assessment/Plan Assessment/Plan IMPRESSION/PLAN: 1. Anemia of kidney disease. Nephrology service following --> Hgb goal above 7. Transfusion has been ordered 2. Anemia of chronic disease. No evidence of iron deficiency 3. End-stage renal disease, hemodialysis dependent. 4. Coronary artery disease. 5. Hypertension. 6. Congestive heart failure. Subjective Allergies: Coded Allergies: No Known Allergies (Unverified , 02/26/16) All Systems: reviewed and negative except above Subjective hgb still at 7.9 Objective Last 24 Hour Vital Signs Date Time Temp Pulse Resp B/P (MAP) Pulse Ox O2 Delivery O2 Flow Rate FiO2 08/28/17 14:00 123/70 08/28/17 13:43 97.9 08/28/17 12:02 Room Air 21 08/28/17 12:02 79 18 Room Air 21 08/28/17 09:35 117 122/96 08/28/17 09:33 117 122/96 08/28/17 08:00 117 08/28/17 08:00 98.1 95 20 122/96 96 Room Air 08/28/17 05:49 126/89 08/28/17 04:00 98.5 110 18 126/89 99 Room Air 97 08/28/17 04:00 101 08/28/17 00:00 97.2 97 20 139/75 99 Room Air 08/28/17 00:00 103 08/27/17 21:53 148/64 08/27/17 21:30 112 142/96 08/27/17 20:00 97.2 96 20 133/78 96 Room Air 08/27/17 20:00 101 08/27/17 19:26 86 18 Room Air 08/27/17 19:26 Room Air 08/27/17 17:25 106 Laboratory Tests 08/28/17 06:55: White Blood Count 4.7L, Red Blood Count 2.53L, Hemoglobin 7.9L, Hematocrit 26.7L , Mean Corpuscular Volume 106H, Mean Corpuscular Hemoglobin 31.1H, Mean Corpuscular Hemoglobin Concent 29.4L, Red Cell Distribution Width 18.6H, Platelet Count 127L, Mean Platelet Volume 6.6, Neutrophils (%) (Auto) , Lymphocytes (%) (Auto) , Monocytes (%) (Auto) , Eosinophils (%) (Auto) , Basophils (%) (Auto) , Differential Total Cells Counted 100, Neutrophils % ( Manual) 78H, Lymphocytes % (Manual) 7L, Monocytes % (Manual) 3, Eosinophils % ( Manual) 12H, Basophils % (Manual) 0, Band Neutrophils 0, Platelet Estimate DecreasedL, Platelet Morphology Normal Height (Feet): 5 Height (Inches): 5.00 Weight (Pounds): 127 General Appearance: no apparent distress EENT: normal ENT inspection Abdomen: normal bowel sounds Edema: mild edema 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
--- NOTE | 2017-08-28 16:40 | Cardiology Progress Note ---
Assessment/Plan Assessment/Plan 1. Atypical chest pain during HD, AMI is ruled out, echo reveals normal LV function, non-ischemic nuclear stress test at outside hospital in Dec 2016. Refused stress test this admission. 2. Hx of CAD, s/p PCI, continue ASA and statins. 3. Atrial fibrillation, continue Eliquis and carvedilol. 4. Hx of HTN, continue clonidine, cardizem and coreg. Subjective Subjective Atrial fibrillation with controlled ventricular response at 68. Objective Last 24 Hour Vital Signs Date Time Temp Pulse Resp B/P (MAP) Pulse Ox O2 Delivery O2 Flow Rate FiO2 08/28/17 14:00 123/70 08/28/17 13:43 97.9 08/28/17 12:02 Room Air 21 08/28/17 12:02 79 18 Room Air 21 08/28/17 09:35 117 122/96 08/28/17 09:33 117 122/96 08/28/17 08:00 117 08/28/17 08:00 98.1 95 20 122/96 96 Room Air 08/28/17 05:49 126/89 08/28/17 04:00 98.5 110 18 126/89 99 Room Air 97 08/28/17 04:00 101 08/28/17 00:00 97.2 97 20 139/75 99 Room Air 08/28/17 00:00 103 08/27/17 21:53 148/64 08/27/17 21:30 112 142/96 08/27/17 20:00 97.2 96 20 133/78 96 Room Air 08/27/17 20:00 101 08/27/17 19:26 86 18 Room Air 08/27/17 19:26 Room Air 08/27/17 17:25 106 2D Echo: LVEF 55%, RVSP 60 mmHg s/w severe pulmonary HTN. Laboratory Tests Test 08/28/17 06:55 White Blood Count 4.7 K/UL (4.8-10.8) L Red Blood Count 2.53 M/UL (4.20-5.40) L Hemoglobin 7.9 G/DL (12.0-16.0) L Hematocrit 26.7 % (37.0-47.0) L Mean Corpuscular Volume 106 FL (80-99) H Mean Corpuscular Hemoglobin 31.1 PG (27.0-31.0) H Mean Corpuscular Hemoglobin Concent 29.4 G/DL (32.0-36.0) L Red Cell Distribution Width 18.6 % (11.6-14.8) H Platelet Count 127 K/UL (150-450) L Mean Platelet Volume 6.6 FL (6.5-10.1) Neutrophils (%) (Auto) % (45.0-75.0) Lymphocytes (%) (Auto) % (20.0-45.0) Monocytes (%) (Auto) % (1.0-10.0) Eosinophils (%) (Auto) % (0.0-3.0) Basophils (%) (Auto) % (0.0-2.0) Differential Total Cells Counted 100 Neutrophils % (Manual) 78 % (45-75) H Lymphocytes % (Manual) 7 % (20-45) L Monocytes % (Manual) 3 % (1-10) Eosinophils % (Manual) 12 % (0-3) H Basophils % (Manual) 0 % (0-2) Band Neutrophils 0 % (0-8) Platelet Estimate Decreased L Platelet Morphology Normal Objective HEENT: PERRLA, EOMI, Anicteric , pale conjunctiva. NECK: No JVD, carotid upstroke 2+ B/L with o bruit LUNGS: Decreased breath sounds bilaterally. CVS: Normal S1S2, irregularly irregular, tachycardia, 2/6 MSM at LSB. ABDOMEN: Benign, NT/ND, + BS Ext: No evidence of edema, clubbing or cyanosis. ALVINO LIZARRAGA Aug 28, 2017 16:40
[2017-08-28] MEDS: Sensipar 30mg Tab ORAL SCH (21:34)
[2017-08-28] MEDS: Epogen (for ESRD on dialysis) SUBQ SCH (21:46)
[2017-08-29] VITALS (7 sets, daily range): BP systolic 125–152; BP diastolic 72–86
[2017-08-29] MEDS: DiphenhydrAMINE 50mg/ml Inj IVP PRN ×4 (04:06→23:47)
[2017-08-29] MEDS: HYDROmorphone 1mg/ml Carpuject IVP PRN ×4 (04:07→23:49)
--- NOTE | 2017-08-29 07:59 | Nephrology Progress Note ---
Assessment/Plan Problem List: (1) ESRD (end stage renal disease) (2) Cardiomegaly (3) Atrial fibrillation with RVR (4) Pleural effusion, left Assessment refused DC to SNF- Appealing discharge ESRD Diaalysis via left thigh Cath- ( left arm aneurysmal fistual clotted) CHF Ej Fx 40% global hypokinesis At fib HTN Right hip arthroplasty 07/2017, spinal stenosis cervical Radiculopathy ACS? Plan HD and UF 08/28- done, next 08/31 continue Cardio Advise- Keep BP and renal parameters in check adjust BP meds 2 D Echo global hypokinesis and EjFx 40% add dig PRN unsafe to go home with femoral cath Subjective ROS Limited/Unobtainable: No Objective Objective Last 24 Hour Vital Signs Date Time Temp Pulse Resp B/P (MAP) Pulse Ox O2 Delivery O2 Flow Rate FiO2 08/29/17 06:00 126/74 08/29/17 04:37 97.0 08/29/17 04:00 78 08/29/17 04:00 97.0 88 20 128/76 100 Room Air 2.0 08/29/17 00:00 97.7 85 20 136/82 100 Room Air 2.0 08/29/17 00:00 85 08/28/17 21:47 119 08/28/17 21:22 119/74 08/28/17 20:26 Room Air 08/28/17 20:26 80 20 Room Air 08/28/17 20:00 65 08/28/17 20:00 97.7 76 20 119/79 96 Room Air 2.0 08/28/17 19:32 Room Air 08/28/17 17:20 98.0 67 20 111/73 Room Air 08/28/17 16:00 75 08/28/17 16:00 97.9 54 18 94/65 96 Room Air 08/28/17 14:00 123/70 08/28/17 13:45 Room Air 08/28/17 12:02 Room Air 08/28/17 12:02 79 18 Room Air 08/28/17 12:00 97.9 86 20 118/92 98 Room Air 08/28/17 12:00 131 08/28/17 09:35 117 122/96 08/28/17 09:33 117 122/96 08/28/17 08:00 117 08/28/17 08:00 98.1 95 20 122/96 96 Room Air Laboratory Tests 08/29/17 07:40: White Blood Count [Pending], Red Blood Count [Pending], Hemoglobin [Pending], Hematocrit [Pending], Mean Corpuscular Volume [Pending], Mean Corpuscular Hemoglobin [Pending], Mean Corpuscular Hemoglobin Concent [Pending], Red Cell Distribution Width [Pending], Platelet Count [Pending], Mean Platelet Volume [ Pending], Neutrophils (%) (Auto) [Pending], Lymphocytes (%) (Auto) [Pending], Monocytes (%) (Auto) [Pending], Eosinophils (%) (Auto) [Pending], Basophils (%) (Auto) [Pending] Height (Feet): 5 Height (Inches): 5.00 Weight (Pounds): 127 General Appearance: no apparent distress Respiratory/Chest: decreased breath sounds Abdomen: soft Objective no other changes ALFREDO MONTEIRO Aug 29, 2017 07:59
[2017-08-29 08:02] LABS: BASOPHILS % (AUTO) 0.7 % (0.0-2.0); EOSINOPHILS % (AUTO) 8.1 % (0.0-3.0); LYMPHOCYTES % (AUTO) 6.1 % (20.0-45.0); MEAN CORPUSCULAR HEMOGLOBIN 32.5 PG (27.0-31.0); MEAN CORPUSCULAR VOLUME 102 FL (80-99); MEAN PLATELET VOLUME 6.3 FL (6.5-10.1); MONOCYTES % (AUTO) 10.8 % (1.0-10.0); NEUTROPHILS % (AUTO) 74.4 % (45.0-75.0); PLATELET COUNT 128 K/UL (150-450); RED BLOOD COUNT 2.46 M/UL (4.20-5.40); RED CELL DISTRIBUTION WIDTH 19.1 % (11.6-14.8); WHITE BLOOD COUNT 5.4 K/UL (4.8-10.8)
[2017-08-29] MEDS: Docusate 100mg cap ORAL SCH ×3 (08:53→17:36)
[2017-08-29] MEDS: dilTIAZem HCl CD 180mg cap ORAL SCH (08:53)
[2017-08-29] MEDS: ALPRAZolam 0.5mg tab ORAL SCH ×2 (08:53→22:10)
[2017-08-29] MEDS: Eliquis 2.5mg tablet ORAL SCH ×2 (08:54→17:37)
[2017-08-29] MEDS: Carvedilol 25mg Tab ORAL SCH ×2 (08:54→21:00)
[2017-08-29] MEDS ORDERED: NS 275ml ONE (16:06)
[2017-08-29] MEDS ORDERED: 1/2 NS 1000ml IV ONE (16:06)
[2017-08-29] MEDS ORDERED: Tubing IV Blood Pump IV ONE (16:06)
[2017-08-29] MEDS: Sensipar 30mg Tab ORAL SCH (22:09)
--- NOTE | 2017-08-29 22:21 | General Progress Note ---
Assessment/Plan Assessment/Plan IMPRESSION/PLAN: 1. Anemia of kidney disease. Nephrology service following --> Hgb goal above 7. S/p multiple transfusions. 2. Anemia of chronic disease. No evidence of iron deficiency 3. End-stage renal disease, hemodialysis dependent. 4. Coronary artery disease. 5. Hypertension. 6. Congestive heart failure. Subjective ROS Limited/Unobtainable: Yes Allergies: Coded Allergies: No Known Allergies (Unverified , 02/26/16) Subjective s/p transfusion Objective Last 24 Hour Vital Signs Date Time Temp Pulse Resp B/P (MAP) Pulse Ox O2 Delivery O2 Flow Rate FiO2 08/29/17 22:09 152/83 08/29/17 21:24 97.7 88 19 152/83 98 Room Air 08/29/17 20:00 97.5 86 18 134/81 99 Room Air 2.0 21 08/29/17 18:07 97.7 08/29/17 16:43 97.7 73 18 125/72 99 Room Air 08/29/17 16:00 77 08/29/17 15:20 97.5 08/29/17 14:16 149/86 08/29/17 12:00 97.5 92 18 149/86 98 Room Air 08/29/17 12:00 78 08/29/17 08:54 85 129/82 08/29/17 08:53 85 129/82 08/29/17 08:00 81 08/29/17 08:00 98.1 85 18 129/82 100 Room Air 08/29/17 07:00 85 20 Room Air 21 08/29/17 07:00 Room Air 08/29/17 06:00 126/74 08/29/17 04:37 97.0 08/29/17 04:00 78 08/29/17 04:00 97.0 88 20 128/76 100 Room Air 2.0 08/29/17 00:00 97.7 85 20 136/82 100 Room Air 2.0 08/29/17 00:00 85 Intake and Output 08/29/17 08/30/17 19:00 07:00 Intake Total 240 ml Balance 240 ml Intake Oral 240 ml # Bowel Movements 2 Laboratory Tests 08/29/17 07:40: White Blood Count 5.4, Red Blood Count 2.46L, Hemoglobin 8.0L, Hematocrit 25.0L , Mean Corpuscular Volume 102H, Mean Corpuscular Hemoglobin 32.5H, Mean Corpuscular Hemoglobin Concent 32.0, Red Cell Distribution Width 19.1H, Platelet Count 128L, Mean Platelet Volume 6.3L, Neutrophils (%) (Auto) 74.4, Lymphocytes (%) (Auto) 6.1L, Monocytes (%) (Auto) 10.8H, Eosinophils (%) (Auto) 8.1H, Basophils (%) (Auto) 0.7 Height (Feet): 5 Height (Inches): 5.00 Weight (Pounds): 127 General Appearance: no apparent distress EENT: normal ENT inspection Neck: normal alignment Cardiovascular: normal peripheral pulses Edema: mild edema Lauri Macias Aug 29, 2017 22:21
[2017-08-30] VITALS: BP 124/78
[2017-08-30 04:00] VITALS: BP 156/96
[2017-08-30] MEDS: HYDROmorphone 1mg/ml Carpuject IVP PRN ×3 (05:39→18:05)
[2017-08-30] MEDS: DiphenhydrAMINE 50mg/ml Inj IVP PRN ×3 (05:39→18:04)
[2017-08-30 08:07] LABS: BASOPHILS % (AUTO) 1.4 % (0.0-2.0); EOSINOPHILS % (AUTO) 7.7 % (0.0-3.0); MEAN CORPUSCULAR HEMOGLOBIN 32.7 PG (27.0-31.0); MEAN CORPUSCULAR HGB CONC 31.7 G/DL (32.0-36.0); MEAN CORPUSCULAR VOLUME 103 FL (80-99); MEAN PLATELET VOLUME 6.5 FL (6.5-10.1); MONOCYTES % (AUTO) 9.2 % (1.0-10.0); NEUTROPHILS % (AUTO) 78.7 % (45.0-75.0); PLATELET COUNT 128 K/UL (150-450); RED BLOOD COUNT 2.45 M/UL (4.20-5.40); RED CELL DISTRIBUTION WIDTH 18.5 % (11.6-14.8); WHITE BLOOD COUNT 6.9 K/UL (4.8-10.8)
[2017-08-30 08:36] LABS: ALANINE AMINOTRANSFERASE 9 U/L (12-78); ALBUMIN/GLOBULIN RATIO 0.7 (1.0-2.7); ANION GAP 10 mmol/L (5-15); ASPARTATE AMINO TRANSFERASE 10 U/L (15-37); CALCIUM 9.6 MG/DL (8.5-10.1); CARBON DIOXIDE 31 MMOL/L (21-32); CHLORIDE 97 MMOL/L (98-107); CREATININE 6.1 MG/DL (0.55-1.30); CRP QUANT < 0.4 mg/dL (0.00-0.90); GLOMERULAR FILTRATION RATE 8.8 mL/min (>60); MAGNESIUM 2.3 MG/DL (1.8-2.4); PHOSPHORUS 5.8 MG/DL (2.5-4.9); POTASSIUM 5.9 MMOL/L (3.5-5.1); SODIUM 137 MMOL/L (136-145); TOTAL PROTEIN 7.1 G/DL (6.4-8.2)
--- NOTE | 2017-08-30 09:48 | Nephrology Progress Note ---
Assessment/Plan Problem List: (1) ESRD (end stage renal disease) (2) Cardiomegaly (3) Atrial fibrillation with RVR (4) Pleural effusion, left Assessment Refused DC to SNF- Appealing discharge ESRD Diaalysis via left thigh Cath- ( left arm aneurysmal fistual clotted) CHF Ej Fx 40% global hypokinesis At fib HTN Right hip arthroplasty 07/2017, spinal stenosis cervical Radiculopathy ACS? Plan HD and UF 08/28- done, next 08/31 continue Cardio Advise- Keep BP and renal parameters in check adjust BP meds 2 D Echo global hypokinesis and EjFx 40% add dig PRN unsafe to go home with femoral cath Subjective ROS Limited/Unobtainable: No Constitutional: Reports: malaise Objective Objective Last 24 Hour Vital Signs Date Time Temp Pulse Resp B/P (MAP) Pulse Ox O2 Delivery O2 Flow Rate FiO2 08/30/17 07:00 Room Air 21 08/30/17 07:00 120 20 Room Air 21 08/30/17 05:39 156/96 08/30/17 04:00 97.9 104 20 156/96 100 Room Air 08/30/17 00:00 97.7 83 20 124/78 94 Room Air 08/29/17 22:09 152/83 08/29/17 21:24 97.7 88 19 152/83 98 Room Air 08/29/17 20:00 97.5 86 18 134/81 99 Room Air 2.0 21 08/29/17 18:07 97.7 08/29/17 16:43 97.7 73 18 125/72 99 Room Air 08/29/17 16:00 77 08/29/17 15:20 97.5 08/29/17 14:16 149/86 08/29/17 12:00 97.5 92 18 149/86 98 Room Air 08/29/17 12:00 78 Laboratory Tests 08/30/17 05:43: White Blood Count 6.9, Red Blood Count 2.45L, Hemoglobin 8.0L, Hematocrit 25.3L , Mean Corpuscular Volume 103H, Mean Corpuscular Hemoglobin 32.7H, Mean Corpuscular Hemoglobin Concent 31.7L, Red Cell Distribution Width 18.5H, Platelet Count 128L, Mean Platelet Volume 6.5, Neutrophils (%) (Auto) 78.7H, Lymphocytes (%) (Auto) 3.0L, Monocytes (%) (Auto) 9.2, Eosinophils (%) (Auto) 7.7H, Basophils (%) (Auto) 1.4, Sodium Level 137, Potassium Level 5.9H, Chloride Level 97L, Carbon Dioxide Level 31, Anion Gap 10, Blood Urea Nitrogen 54H, Creatinine 6.1H, Estimat Glomerular Filtration Rate 8.8, Glucose Level 78, Calcium Level 9.6, Phosphorus Level 5.8H, Magnesium Level 2.3, Total Bilirubin 0.3, Aspartate Amino Transf (AST/SGOT) 10L, Alanine Aminotransferase (ALT/SGPT) 9L, Alkaline Phosphatase 709H, C-Reactive Protein, Quantitative < 0.4, Pro-B- Type Natriuretic Peptide 7989H, Total Protein 7.1, Albumin 2.8L, Globulin 4.3, Albumin/Globulin Ratio 0.7L Height (Feet): 5 Height (Inches): 5.00 Weight (Pounds): 139 General Appearance: no apparent distress Objective no other changes ALFREDO MONTEIRO Aug 30, 2017 09:48
[2017-08-30] MEDS: Docusate 100mg cap ORAL SCH ×3 (09:57→18:03)
[2017-08-30] MEDS: Carvedilol 25mg Tab ORAL SCH ×2 (09:58→20:59)
[2017-08-30] MEDS: dilTIAZem HCl CD 180mg cap ORAL SCH (09:58)
[2017-08-30] MEDS: ALPRAZolam 0.5mg tab ORAL SCH (09:59)
[2017-08-30] MEDS: Eliquis 2.5mg tablet ORAL SCH ×2 (09:59→18:03)
--- NOTE | 2017-08-30 10:25 | General Progress Note ---
Assessment/Plan Assessment/Plan (1) Right hip pain (2) Right hip Fx s/p ORIF (3) Cervical DDD (4) Cervical Spondylosis (5) Cervical Radiculopathy (6) H/o Cervical surgery Pt to be continued on the Dilaudid and Percocet. D/w Dr. Stockton and he concurred. Subjective Date patient seen: Aug 30, 2017 Time patient seen: 10:00 - am Allergies: Coded Allergies: No Known Allergies (Unverified , 02/26/16) Subjective REVIEW OF SYSTEMS: She denies rash, fever, chills, sweating, dizziness, drowsiness, blurred vision, sore throat, or change in weight. No shortness of breath or chest pain. No nausea, vomiting, diarrhea, or blood in the stool or urine. No bowel or bladder incontinence. No dysuria. She is complaining of right hip and neck pain. SUBJECTIVE: Her pain has been unchanged and has been tolerated on the Dilaudid and Percocet. The pain is aggravated with PT. m Objective Last 24 Hour Vital Signs Date Time Temp Pulse Resp B/P (MAP) Pulse Ox O2 Delivery O2 Flow Rate FiO2 08/30/17 09:58 94 156/96 08/30/17 09:58 94 156/96 08/30/17 07:00 Room Air 21 08/30/17 07:00 120 20 Room Air 21 08/30/17 05:39 156/96 08/30/17 04:00 97.9 104 20 156/96 100 Room Air 08/30/17 00:00 97.7 83 20 124/78 94 Room Air 08/29/17 22:09 152/83 08/29/17 21:24 97.7 88 19 152/83 98 Room Air 08/29/17 20:00 97.5 86 18 134/81 99 Room Air 2.0 21 08/29/17 18:07 97.7 08/29/17 16:43 97.7 73 18 125/72 99 Room Air 08/29/17 16:00 77 08/29/17 15:20 97.5 08/29/17 14:16 149/86 08/29/17 12:00 97.5 92 18 149/86 98 Room Air 08/29/17 12:00 78 Laboratory Tests 08/30/17 05:43: White Blood Count 6.9, Red Blood Count 2.45L, Hemoglobin 8.0L, Hematocrit 25.3L , Mean Corpuscular Volume 103H, Mean Corpuscular Hemoglobin 32.7H, Mean Corpuscular Hemoglobin Concent 31.7L, Red Cell Distribution Width 18.5H, Platelet Count 128L, Mean Platelet Volume 6.5, Neutrophils (%) (Auto) 78.7H, Lymphocytes (%) (Auto) 3.0L, Monocytes (%) (Auto) 9.2, Eosinophils (%) (Auto) 7.7H, Basophils (%) (Auto) 1.4, Sodium Level 137, Potassium Level 5.9H, Chloride Level 97L, Carbon Dioxide Level 31, Anion Gap 10, Blood Urea Nitrogen 54H, Creatinine 6.1H, Estimat Glomerular Filtration Rate 8.8, Glucose Level 78, Calcium Level 9.6, Phosphorus Level 5.8H, Magnesium Level 2.3, Total Bilirubin 0.3, Aspartate Amino Transf (AST/SGOT) 10L, Alanine Aminotransferase (ALT/SGPT) 9L, Alkaline Phosphatase 709H, C-Reactive Protein, Quantitative < 0.4, Pro-B- Type Natriuretic Peptide 7989H, Total Protein 7.1, Albumin 2.8L, Globulin 4.3, Albumin/Globulin Ratio 0.7L Height (Feet): 5 Height (Inches): 5.00 Weight (Pounds): 139 Objective GENERAL: Alert, awake, and oriented. HEENT: PERRLA. NECK: Range of motion is decreased due to the patient's condition with tenderness as well as adenopathy with surgical scar noted in the midline of the posterior cervical area. LUNGS: Decreased breath sounds bilaterally. ABDOMEN: Benign. BACK: Range of motion is decreased in flexion and extension. EXTREMITIES: No cyanosis. No clubbing. NEUROLOGICAL: No changes. Procedure: XRAY Hip Routine 2v+ R Indications: hip pain Findings: Cemented total hip arthroplasty demonstrated. No malalignment or definite acute fracture is identified. The bones are severely osteopenic. DAIJA FERRARI Aug 30, 2017 10:25
[2017-08-30] MEDS ORDERED: Sodium Polystyrene Sulfonate 15gm Powder ORAL ONE (11:00)
[2017-08-30 12:15] VITALS: BP 136/68
[2017-08-30 16:27] VITALS: BP 148/99
--- NOTE | 2017-08-30 17:25 | Cardiology Progress Note ---
Assessment/Plan Assessment/Plan 1. Atypical chest pain during HD, AMI is ruled out, echo reveals normal LV function, non-ischemic nuclear stress test at outside hospital in Dec 2016. Refused stress test this admission. 2. Hx of CAD, s/p PCI, continue ASA and statins. 3. Atrial fibrillation, continue Eliquis and carvedilol. 4. Hx of HTN, stage I, continue clonidine, cardizem and coreg. 5. Severe pulmonary HTN, likely due to ESRD. Subjective Subjective Transferred to med-surg unit. Objective Last 24 Hour Vital Signs Date Time Temp Pulse Resp B/P (MAP) Pulse Ox O2 Delivery O2 Flow Rate FiO2 08/30/17 16:27 97.7 108 20 148/99 95 Room Air 08/30/17 15:13 89 08/30/17 15:11 140/93 08/30/17 12:15 98.2 131 22 136/68 100 Room Air 08/30/17 09:58 94 156/96 08/30/17 09:58 94 156/96 08/30/17 07:00 Room Air 21 08/30/17 07:00 120 20 Room Air 21 08/30/17 05:39 156/96 08/30/17 04:00 97.9 104 20 156/96 100 Room Air 08/30/17 00:00 97.7 83 20 124/78 94 Room Air 08/29/17 22:09 152/83 08/29/17 21:24 97.7 88 19 152/83 98 Room Air 08/29/17 20:00 97.5 86 18 134/81 99 Room Air 2.0 21 08/29/17 18:07 97.7 Intake and Output 08/30/17 08/31/17 18:59 06:59 Intake Total 480 ml Balance 480 ml Intake Oral 480 ml 2D Echo: LVEF 55%, RVSP 60 mmHg s/w severe pulmonary HTN. Laboratory Tests Test 08/30/17 05:43 White Blood Count 6.9 K/UL (4.8-10.8) Red Blood Count 2.45 M/UL (4.20-5.40) L Hemoglobin 8.0 G/DL (12.0-16.0) L Hematocrit 25.3 % (37.0-47.0) L Mean Corpuscular Volume 103 FL (80-99) H Mean Corpuscular Hemoglobin 32.7 PG (27.0-31.0) H Mean Corpuscular Hemoglobin Concent 31.7 G/DL (32.0-36.0) L Red Cell Distribution Width 18.5 % (11.6-14.8) H Platelet Count 128 K/UL (150-450) L Mean Platelet Volume 6.5 FL (6.5-10.1) Neutrophils (%) (Auto) 78.7 % (45.0-75.0) H Lymphocytes (%) (Auto) 3.0 % (20.0-45.0) L Monocytes (%) (Auto) 9.2 % (1.0-10.0) Eosinophils (%) (Auto) 7.7 % (0.0-3.0) H Basophils (%) (Auto) 1.4 % (0.0-2.0) Sodium Level 137 MMOL/L (136-145) Potassium Level 5.9 MMOL/L (3.5-5.1) H Chloride Level 97 MMOL/L (98-107) L Carbon Dioxide Level 31 MMOL/L (21-32) Anion Gap 10 mmol/L (5-15) Blood Urea Nitrogen 54 mg/dL (7-18) H Creatinine 6.1 MG/DL (0.55-1.30) H Estimat Glomerular Filtration Rate 8.8 mL/min (>60) Glucose Level 78 MG/DL (74-106) Calcium Level 9.6 MG/DL (8.5-10.1) Phosphorus Level 5.8 MG/DL (2.5-4.9) H Magnesium Level 2.3 MG/DL (1.8-2.4) Total Bilirubin 0.3 MG/DL (0.2-1.0) Aspartate Amino Transf (AST/SGOT) 10 U/L (15-37) L Alanine Aminotransferase (ALT/SGPT) 9 U/L (12-78) L Alkaline Phosphatase 709 U/L (46-116) H C-Reactive Protein, Quantitative < 0.4 mg/dL (0.00-0.90) Pro-B-Type Natriuretic Peptide 7989 pg/mL (0-125) H Total Protein 7.1 G/DL (6.4-8.2) Albumin 2.8 G/DL (3.4-5.0) L Globulin 4.3 g/dL Albumin/Globulin Ratio 0.7 (1.0-2.7) L Objective HEENT: PERRLA, EOMI, Anicteric , pale conjunctiva. NECK: No JVD, carotid upstroke 2+ B/L with o bruit LUNGS: Decreased breath sounds bilaterally. CVS: Normal S1S2, irregularly irregular, tachycardia, 2/6 MSM at LSB. ABDOMEN: Benign, NT/ND, + BS Ext: No evidence of edema, clubbing or cyanosis. ALVINO LIZARRAGA Aug 30, 2017 17:25
[2017-08-30 20:00] VITALS: BP 139/86
[2017-08-30] MEDS ORDERED: Dyna-Hex 2% Top Sol 2oz TOPIC SCH (20:00)
[2017-08-30] MEDS: Sensipar 30mg Tab ORAL SCH (20:57)
[2017-08-30] MEDS: Dyna-Hex 2% Top Sol 2oz TOPIC SCH (21:00)
--- NOTE | 2017-08-30 21:38 | General Progress Note ---
Assessment/Plan Assessment/Plan IMPRESSION/PLAN: 1. Anemia of kidney disease. Nephrology service following --> Hgb goal above 7. S/p multiple transfusions. 2. Anemia of chronic disease. No evidence of iron deficiency 3. End-stage renal disease, hemodialysis dependent. 4. Coronary artery disease. 5. Hypertension. 6. Congestive heart failure. Subjective ROS Limited/Unobtainable: Yes Allergies: Coded Allergies: No Known Allergies (Unverified , 02/26/16) Subjective NAD Objective Last 24 Hour Vital Signs Date Time Temp Pulse Resp B/P (MAP) Pulse Ox O2 Delivery O2 Flow Rate FiO2 08/30/17 20:59 139/86 08/30/17 20:59 109 139/86 08/30/17 20:04 Room Air 08/30/17 20:04 110 18 Room Air 08/30/17 20:00 97.3 109 20 139/86 94 Room Air 08/30/17 16:27 97.7 108 20 148/99 95 Room Air 08/30/17 15:13 89 08/30/17 15:11 140/93 08/30/17 12:15 98.2 131 22 136/68 100 Room Air 08/30/17 09:58 94 156/96 08/30/17 09:58 94 156/96 08/30/17 07:00 Room Air 21 08/30/17 07:00 120 20 Room Air 21 08/30/17 05:39 156/96 08/30/17 04:00 97.9 104 20 156/96 100 Room Air 08/30/17 00:00 97.7 83 20 124/78 94 Room Air 08/29/17 22:09 152/83 Intake and Output 08/30/17 08/31/17 19:00 07:00 Intake Total 600 ml Balance 600 ml Intake Oral 600 ml Laboratory Tests 08/30/17 05:43: White Blood Count 6.9, Red Blood Count 2.45L, Hemoglobin 8.0L, Hematocrit 25.3L , Mean Corpuscular Volume 103H, Mean Corpuscular Hemoglobin 32.7H, Mean Corpuscular Hemoglobin Concent 31.7L, Red Cell Distribution Width 18.5H, Platelet Count 128L, Mean Platelet Volume 6.5, Neutrophils (%) (Auto) 78.7H, Lymphocytes (%) (Auto) 3.0L, Monocytes (%) (Auto) 9.2, Eosinophils (%) (Auto) 7.7H, Basophils (%) (Auto) 1.4, Sodium Level 137, Potassium Level 5.9H, Chloride Level 97L, Carbon Dioxide Level 31, Anion Gap 10, Blood Urea Nitrogen 54H, Creatinine 6.1H, Estimat Glomerular Filtration Rate 8.8, Glucose Level 78, Calcium Level 9.6, Phosphorus Level 5.8H, Magnesium Level 2.3, Total Bilirubin 0.3, Aspartate Amino Transf (AST/SGOT) 10L, Alanine Aminotransferase (ALT/SGPT) 9L, Alkaline Phosphatase 709H, C-Reactive Protein, Quantitative < 0.4, Pro-B- Type Natriuretic Peptide 7989H, Total Protein 7.1, Albumin 2.8L, Globulin 4.3, Albumin/Globulin Ratio 0.7L Height (Feet): 5 Height (Inches): 5.00 Weight (Pounds): 139 General Appearance: no apparent distress EENT: normal ENT inspection Neck: normal alignment Cardiovascular: normal peripheral pulses Abdomen: normal bowel sounds Edema: mild edema Neurologic: advertising specialist II-XII grossly normal Skin: warm/dry Lauri Macias Aug 30, 2017 21:38
[2017-08-31] VITALS (8 sets, daily range): BP systolic 106–166; BP diastolic 73–104
[2017-08-31] MEDS: DiphenhydrAMINE 50mg/ml Inj IVP PRN ×3 (01:05→20:26)
[2017-08-31] MEDS: HYDROmorphone 1mg/ml Carpuject IVP PRN ×3 (01:05→20:26)
--- NOTE | 2017-08-31 08:02 | General Progress Note ---
Assessment/Plan Assessment/Plan (1) Right hip pain (2) Right hip Fx s/p ORIF (3) Cervical DDD (4) Cervical Spondylosis (5) Cervical Radiculopathy (6) H/o Cervical surgery Pt to be continued on the Dilaudid and Percocet. D/w Dr. Stockton and he concurred. Subjective Date patient seen: Aug 31, 2017 Time patient seen: 07:00 - am Allergies: Coded Allergies: No Known Allergies (Unverified , 02/26/16) Subjective REVIEW OF SYSTEMS: She denies rash, fever, chills, sweating, dizziness, drowsiness, blurred vision, sore throat, or change in weight. No shortness of breath or chest pain. No nausea, vomiting, diarrhea, or blood in the stool or urine. No bowel or bladder incontinence. No dysuria. She is complaining of right hip and neck pain. SUBJECTIVE: Patient is in bed no signs of distress. The pain has been tolerated on the Dilaudid and Percocet. She continues to have pain with PT and the Dilaudid allows her increased therapy. Objective Last 24 Hour Vital Signs Date Time Temp Pulse Resp B/P (MAP) Pulse Ox O2 Delivery O2 Flow Rate FiO2 08/31/17 05:51 106/73 08/31/17 03:58 97.6 134 20 106/73 96 Room Air 08/31/17 00:00 97.5 99 20 128/79 96 Room Air 08/30/17 20:59 139/86 08/30/17 20:59 109 139/86 08/30/17 20:04 Room Air 08/30/17 20:04 110 18 Room Air 21 08/30/17 20:00 97.3 109 20 139/86 94 Room Air 08/30/17 16:27 97.7 108 20 148/99 95 Room Air 08/30/17 15:13 89 08/30/17 15:11 140/93 08/30/17 12:15 98.2 131 22 136/68 100 Room Air 08/30/17 09:58 94 156/96 08/30/17 09:58 94 156/96 Height (Feet): 5 Height (Inches): 5.00 Weight (Pounds): 139 Objective GENERAL: Alert, awake, and oriented. HEENT: PERRLA. NECK: Range of motion is decreased due to the patient's condition with tenderness as well as adenopathy with surgical scar noted in the midline of the posterior cervical area. LUNGS: Decreased breath sounds bilaterally. ABDOMEN: Benign. BACK: Range of motion is decreased in flexion and extension. EXTREMITIES: No cyanosis. No clubbing. NEUROLOGICAL: No changes. Procedure: XRAY Hip Routine 2v+ R Indications: hip pain Findings: Cemented total hip arthroplasty demonstrated. No malalignment or definite acute fracture is identified. The bones are severely osteopenic. DAIJA FERRARI Aug 31, 2017 08:02
[2017-08-31] MEDS: Carvedilol 25mg Tab ORAL SCH ×3 (09:00→21:00)
[2017-08-31] MEDS: dilTIAZem HCl CD 180mg cap ORAL SCH ×2 (09:00→21:40)
[2017-08-31] MEDS: Eliquis 2.5mg tablet ORAL SCH ×2 (09:31→19:41)
[2017-08-31] MEDS: Docusate 100mg cap ORAL SCH ×3 (09:31→19:41)
--- NOTE | 2017-08-31 11:49 | Nephrology Progress Note ---
Assessment/Plan Problem List: (1) ESRD (end stage renal disease) (2) Cardiomegaly (3) Atrial fibrillation with RVR (4) Pleural effusion, left Assessment Refused DC to SNF- Appealing discharge ESRD Diaalysis via left thigh Cath- ( left arm aneurysmal fistual clotted) CHF Ej Fx 40% global hypokinesis At fib HTN Right hip arthroplasty 07/2017, spinal stenosis cervical Radiculopathy ACS? Plan HD and UF 08/28- done, next 08/31 continue Cardio Advise- Keep BP and renal parameters in check adjust BP meds 2 D Echo global hypokinesis and EjFx 40% add dig PRN unsafe to go home with femoral cath Subjective ROS Limited/Unobtainable: No Constitutional: Reports: malaise Objective Objective Last 24 Hour Vital Signs Date Time Temp Pulse Resp B/P (MAP) Pulse Ox O2 Delivery O2 Flow Rate FiO2 08/31/17 05:51 106/73 08/31/17 03:58 97.6 134 20 106/73 96 Room Air 08/31/17 00:00 97.5 99 20 128/79 96 Room Air 08/30/17 20:59 139/86 08/30/17 20:59 109 139/86 08/30/17 20:04 Room Air 08/30/17 20:04 110 18 Room Air 21 08/30/17 20:00 97.3 109 20 139/86 94 Room Air 08/30/17 16:27 97.7 108 20 148/99 95 Room Air 08/30/17 15:13 89 08/30/17 15:11 140/93 08/30/17 12:15 98.2 131 22 136/68 100 Room Air Height (Feet): 5 Height (Inches): 5.00 Weight (Pounds): 139 General Appearance: no apparent distress Respiratory/Chest: decreased breath sounds Abdomen: soft Objective no other changes ALFREDO MONTEIRO Aug 31, 2017 11:49
[2017-08-31 12:04] LABS: OTHERS PATHOLOGIST COMMENT
--- NOTE | 2017-08-31 12:08 | General Progress Note ---
Assessment/Plan Problem List: (1) Chest pain ICD Codes: R07.9 - Chest pain, unspecified SNOMED: 43342660 (2) Cervical radiculopathy ICD Codes: M54.12 - Radiculopathy, cervical region SNOMED: 09317300 (3) ACS (acute coronary syndrome) ICD Codes: I24.9 - Acute ischemic heart disease, unspecified SNOMED: 038568454 (4) Cardiomegaly ICD Codes: I51.7 - Cardiomegaly SNOMED: 2963953 (5) ESRD (end stage renal disease) ICD Codes: N18.6 - End stage renal disease SNOMED: 00464705 (6) Pleural effusion, left ICD Codes: J90 - Pleural effusion, not elsewhere classified SNOMED: 08055709 Status: progressing Assessment/Plan clotted hd fistula is repaired no acute events s/p tachy i told her in front julio case management rn director and endi LUND and her rn that she can either go to any snf of her choosing as she doesn't meet criteria for inpatient stay and is not safe at all to go home w femoral cath in her groin.she has history of non compliance per her vascular surgeon has femoral cath in Subjective ROS Limited/Unobtainable: Yes Allergies: Coded Allergies: No Known Allergies (Unverified , 02/26/16) Objective Last 24 Hour Vital Signs Date Time Temp Pulse Resp B/P (MAP) Pulse Ox O2 Delivery O2 Flow Rate FiO2 08/31/17 05:51 106/73 08/31/17 03:58 97.6 134 20 106/73 96 Room Air 08/31/17 00:00 97.5 99 20 128/79 96 Room Air 08/30/17 20:59 139/86 08/30/17 20:59 109 139/86 08/30/17 20:04 Room Air 08/30/17 20:04 110 18 Room Air 21 08/30/17 20:00 97.3 109 20 139/86 94 Room Air 08/30/17 16:27 97.7 108 20 148/99 95 Room Air 08/30/17 15:13 89 08/30/17 15:11 140/93 08/30/17 12:15 98.2 131 22 136/68 100 Room Air Height (Feet): 5 Height (Inches): 5.00 Weight (Pounds): 139 Neck: supple Respiratory/Chest: lungs clear Abdomen: soft Keven Scott MD Aug 31, 2017 12:08
[2017-08-31] MEDS: Dyna-Hex 2% Top Sol 2oz TOPIC SCH (20:26)
[2017-08-31] MEDS: Sensipar 30mg Tab ORAL SCH (20:26)
[2017-08-31] MEDS: Epogen (for ESRD on dialysis) SUBQ SCH (21:41)
--- NOTE | 2017-08-31 22:25 | General Progress Note ---
Assessment/Plan Assessment/Plan IMPRESSION/PLAN: # Thrombocytopenia, not critically low. ok to monitor for now 1. Anemia of kidney disease. Nephrology service following --> Hgb goal above 7. S/p multiple transfusions. 2. Anemia of chronic disease. No evidence of iron deficiency 3. End-stage renal disease, hemodialysis dependent. 4. Coronary artery disease. 5. Hypertension. 6. Congestive heart failure. Subjective ROS Limited/Unobtainable: Yes Allergies: Coded Allergies: No Known Allergies (Unverified , 02/26/16) Subjective NAD Objective Last 24 Hour Vital Signs Date Time Temp Pulse Resp B/P (MAP) Pulse Ox O2 Delivery O2 Flow Rate FiO2 08/31/17 21:40 105 154/104 08/31/17 21:40 154/104 08/31/17 20:26 105 154/104 08/31/17 19:18 100.4 105 20 154/104 100 Room Air 08/31/17 19:12 97.9 91 20 150/83 96 Room Air 08/31/17 18:00 Room Air 08/31/17 18:00 98.4 20 166/102 Room Air 08/31/17 15:58 98.1 109 19 154/86 100 Nasal Cannula 2.0 08/31/17 14:15 Room Air 08/31/17 14:00 130/76 08/31/17 12:00 97.7 94 18 130/76 99 Room Air 08/31/17 09:00 94 130/76 08/31/17 09:00 94 130/76 08/31/17 05:51 106/73 08/31/17 03:58 97.6 134 20 106/73 96 Room Air 08/31/17 00:00 97.5 99 20 128/79 96 Room Air Intake and Output 08/31/17 09/01/17 18:59 06:59 Intake Total 750 ml Output Total 1908 ml Balance -1158 ml Intake Oral 750 ml Hemodialysis UF 1908 ml Height (Feet): 5 Height (Inches): 5.00 Weight (Pounds): 139 General Appearance: no apparent distress EENT: normal ENT inspection Neck: normal alignment Abdomen: normal bowel sounds Edema: mild edema Neurologic: time broker II-XII grossly normal Lauri Macias Aug 31, 2017 22:25
--- NOTE | 2017-08-31 23:24 | Cardiology Progress Note ---
Assessment/Plan Assessment/Plan 1. Atypical chest pain during HD, AMI is ruled out, echo reveals normal LV function, non-ischemic nuclear stress test at outside hospital in Dec 2016. Refused stress test this admission. 2. Hx of CAD, s/p PCI, continue ASA and statins. 3. Atrial fibrillation, continue Eliquis and carvedilol. 4. Hx of HTN, stage II, continue clonidine and coreg, increase cardizem. 5. Severe pulmonary HTN, likely due to ESRD. Subjective Subjective No cardiac events. Refused to get discharged. Objective Last 24 Hour Vital Signs Date Time Temp Pulse Resp B/P (MAP) Pulse Ox O2 Delivery O2 Flow Rate FiO2 08/31/17 21:40 105 154/104 08/31/17 21:40 154/104 08/31/17 20:26 105 154/104 08/31/17 19:18 100.4 105 20 154/104 100 Room Air 08/31/17 19:12 97.9 91 20 150/83 96 Room Air 08/31/17 18:00 Room Air 08/31/17 18:00 98.4 20 166/102 Room Air 08/31/17 15:58 98.1 109 19 154/86 100 Nasal Cannula 2.0 08/31/17 14:15 Room Air 08/31/17 14:00 130/76 08/31/17 12:00 97.7 94 18 130/76 99 Room Air 08/31/17 09:00 94 130/76 08/31/17 09:00 94 130/76 08/31/17 05:51 106/73 08/31/17 03:58 97.6 134 20 106/73 96 Room Air 08/31/17 00:00 97.5 99 20 128/79 96 Room Air Intake and Output 08/31/17 09/01/17 19:00 07:00 Intake Total 750 ml Output Total 1908 ml Balance -1158 ml Intake Oral 750 ml Hemodialysis UF 1908 ml # Bowel Movements 1 2D Echo: LVEF 55%, RVSP 60 mmHg s/w severe pulmonary HTN. Objective HEENT: PERRLA, EOMI, Anicteric , pale conjunctiva. NECK: No JVD, carotid upstroke 2+ B/L with o bruit LUNGS: Decreased breath sounds bilaterally. CVS: Normal S1S2, irregularly irregular, tachycardia, 2/6 MSM at LSB. ABDOMEN: Benign, NT/ND, + BS Ext: No evidence of edema, clubbing or cyanosis. ALVINO LIZARRAGA Aug 31, 2017 23:24
[2017-09-01] MEDS: HYDROmorphone 1mg/ml Carpuject IVP PRN (02:27)
[2017-09-01] MEDS: DiphenhydrAMINE 50mg/ml Inj IVP PRN ×3 (02:27→18:32)
[2017-09-01 04:00] VITALS: BP 126/77
[2017-09-01 08:00] VITALS: BP 126/76
--- NOTE | 2017-09-01 08:21 | General Progress Note ---
Assessment/Plan Assessment/Plan (1) Right hip pain (2) Right hip Fx s/p ORIF (3) Cervical DDD (4) Cervical Spondylosis (5) Cervical Radiculopathy (6) H/o Cervical surgery Pt to be continued on the Dilaudid changed to 2mg PO 1 tab Q4H PRN severe pain and Percocet. D/w Dr. Stockton and he concurred. Subjective Date patient seen: Sep 01, 2017 Time patient seen: 07:15 - am Allergies: Coded Allergies: No Known Allergies (Unverified , 02/26/16) Subjective REVIEW OF SYSTEMS: She denies rash, fever, chills, sweating, dizziness, drowsiness, blurred vision, sore throat, or change in weight. No shortness of breath or chest pain. No nausea, vomiting, diarrhea, or blood in the stool or urine. No bowel or bladder incontinence. No dysuria. She is complaining of right hip and neck pain. SUBJECTIVE: Patient and reports continued severe pain. I d/w her about discontinuing the Dilaudid IV and starting the Dilaudid tabs. she was advised to continue the Percocet. Objective Last 24 Hour Vital Signs Date Time Temp Pulse Resp B/P (MAP) Pulse Ox O2 Delivery O2 Flow Rate FiO2 09/01/17 05:13 126/77 09/01/17 04:00 97.7 64 20 126/77 92 Room Air 09/01/17 02:57 97.0 08/31/17 23:20 97.0 104 20 137/101 92 Room Air 08/31/17 21:40 105 154/104 08/31/17 21:40 154/104 08/31/17 21:00 105 154/105 08/31/17 19:18 100.4 105 20 154/104 100 Room Air 08/31/17 19:12 97.9 91 20 150/83 96 Room Air 08/31/17 18:00 Room Air 08/31/17 18:00 98.4 20 166/102 Room Air 08/31/17 15:58 98.1 109 19 154/86 100 Nasal Cannula 2.0 08/31/17 14:15 Room Air 08/31/17 14:00 130/76 08/31/17 12:00 97.7 94 18 130/76 99 Room Air 08/31/17 09:00 94 130/76 08/31/17 09:00 94 130/76 Height (Feet): 5 Height (Inches): 5.00 Weight (Pounds): 139 Objective GENERAL: Alert, awake, and oriented. HEENT: PERRLA. NECK: Range of motion is decreased due to the patient's condition with tenderness as well as adenopathy with surgical scar noted in the midline of the posterior cervical area. LUNGS: Decreased breath sounds bilaterally. ABDOMEN: Benign. BACK: Range of motion is decreased in flexion and extension. EXTREMITIES: No cyanosis. No clubbing. NEUROLOGICAL: No changes. Procedure: XRAY Hip Routine 2v+ R Indications: hip pain Findings: Cemented total hip arthroplasty demonstrated. No malalignment or definite acute fracture is identified. The bones are severely osteopenic. DAIJA FERRRAI Sep 01, 2017 08:21
[2017-09-01] MEDS ORDERED: HYDROmorphone 2mg tab ORAL PRN ×2 (08:30→16:30)
[2017-09-01] MEDS: dilTIAZem HCl CD 240mg cap ORAL SCH (09:00)
[2017-09-01] MEDS: Carvedilol 25mg Tab ORAL SCH ×2 (09:00→20:20)
[2017-09-01] MEDS: Eliquis 2.5mg tablet ORAL SCH ×2 (09:22→18:29)
[2017-09-01] MEDS: Docusate 100mg cap ORAL SCH ×3 (09:23→18:29)
[2017-09-01 12:00] VITALS: BP 124/88
--- NOTE | 2017-09-01 12:32 | Consultation ---
Consult Note Assessment/Plan dict bronchitis vs pneumonia CXR HHLA Lam Sep 01, 2017 12:32
--- NOTE | 2017-09-01 13:22 | Nephrology Progress Note ---
Assessment/Plan Problem List: (1) ESRD (end stage renal disease) (2) Cardiomegaly (3) Atrial fibrillation with RVR (4) Pleural effusion, left Assessment Refused DC to SNF- Appealing discharge ESRD Diaalysis via left thigh Cath- ( left arm aneurysmal fistual clotted) CHF Ej Fx 40% global hypokinesis At fib HTN Right hip arthroplasty 07/2017, spinal stenosis cervical Radiculopathy ACS? Plan HD and UF 08/31 next 09/02 continue Cardio Advise- Keep BP and renal parameters in check adjust BP meds 2 D Echo global hypokinesis and EjFx 40% add dig PRN unsafe to go home with femoral cath Subjective ROS Limited/Unobtainable: No Constitutional: Reports: malaise Objective Objective Last 24 Hour Vital Signs Date Time Temp Pulse Resp B/P (MAP) Pulse Ox O2 Delivery O2 Flow Rate FiO2 09/01/17 12:00 98.1 98 20 124/88 94 Room Air 09/01/17 09:00 97 126/76 09/01/17 09:00 97 126/76 09/01/17 08:00 97.3 97 20 126/76 100 Room Air 09/01/17 05:13 126/77 09/01/17 04:00 97.7 64 20 126/77 92 Room Air 09/01/17 02:57 97.0 08/31/17 23:20 97.0 104 20 137/101 92 Room Air 08/31/17 21:40 105 154/104 08/31/17 21:40 154/104 08/31/17 21:00 105 154/105 08/31/17 19:18 100.4 105 20 154/104 100 Room Air 08/31/17 19:12 97.9 91 20 150/83 96 Room Air 08/31/17 18:00 Room Air 08/31/17 18:00 98.4 20 166/102 Room Air 08/31/17 15:58 98.1 109 19 154/86 100 Nasal Cannula 2.0 08/31/17 14:15 Room Air 08/31/17 14:00 130/76 Intake and Output 09/01/17 09/02/17 19:00 07:00 # Bowel Movements 1 Height (Feet): 5 Height (Inches): 5.00 Weight (Pounds): 139 General Appearance: no apparent distress Objective no other changes ALFREDO MNOTEIRO Sep 01, 2017 13:22
--- NOTE | 2017-09-01 14:16 | Diagnostic Imaging Report ---
Indication: COUGH Technique: One view of the chest Comparison: 08/23/2017 Findings: Cardiomegaly persists. Left costophrenic angle is blunted and the left hemidiaphragm is somewhat obscured, indicating likely parenchymal consolidation and pleural fluid. This is unchanged. There is also generalized mild interstitial prominence which is stable. Left innominate venous stent, cervical spine fusion hardware is again noted. Calcification in the left upper arm soft tissues most likely represents a calcified dialysis graft aneurysm. Findings are overall unchanged Impression: Left basilar pleural and parenchymal disease, generalized interstitial congestion, unchanged from 08/23/2017 Cardiomegaly Postsurgical changes, as described
[2017-09-01] MEDS: Albuterol/Ipratropium 3ml neb HHN SCH ×3 (15:21→23:23)
[2017-09-01 16:00] VITALS: BP 124/76
[2017-09-01 18:43] LABS: MEAN CORPUSCULAR HEMOGLOBIN 31.9 PG (27.0-31.0); MEAN CORPUSCULAR HGB CONC 30.5 G/DL (32.0-36.0); MEAN CORPUSCULAR VOLUME 104 FL (80-99); MEAN PLATELET VOLUME 5.4 FL (6.5-10.1); PLATELET COUNT 120 K/UL (150-450); RED BLOOD COUNT 2.24 M/UL (4.20-5.40); RED CELL DISTRIBUTION WIDTH 18.5 % (11.6-14.8); WHITE BLOOD COUNT 5.3 K/UL (4.8-10.8)
[2017-09-01 19:05] LABS: ANION GAP 7 mmol/L (5-15); CALCIUM 9.5 MG/DL (8.5-10.1); CARBON DIOXIDE 34 MMOL/L (21-32); CHLORIDE 98 MMOL/L (98-107); CREATININE 5.8 MG/DL (0.55-1.30); GLOMERULAR FILTRATION RATE 9.3 mL/min (>60); POTASSIUM 4.4 MMOL/L (3.5-5.1); SODIUM 139 MMOL/L (136-145)
[2017-09-01 19:32] LABS: ANISOCYTOSIS 1+; BAND NEUTROPHILS % (MANUAL) 2 % (0-8); EOSINOPHILS % (MANUAL) 9 % (0-3); HYPOCHROMASIA 1+; LYMPHOCYTES % (MANUAL) 8 % (20-45); MACROCYTES 1+; NEUTROPHILS % (MANUAL) 75 % (45-75); TOTAL CELLS COUNTED 100
[2017-09-01 19:33] LABS: BASOPHILS % (MANUAL) 0 % (0-2); PLATELET ESTIMATE DECREASED; PLATELET MORPHOLOGY NORMAL
[2017-09-01 20:00] VITALS: BP 139/86
[2017-09-01] MEDS: Dyna-Hex 2% Top Sol 2oz TOPIC SCH (20:00)
--- NOTE | 2017-09-01 20:30 | Consultation ---
DATE OF CONSULTATION: 09/01/2017 PULMONARY CONSULTATION CONSULTING PHYSICIAN: Roscoe Dalton M.D. CHIEF COMPLAINT: Cough and green sputum. HISTORY OF PRESENT ILLNESS: The patient is a 51-year-old woman, who presented to the hospital from dialysis because of chest pain, [place] was ruled out, and she was treated with dialysis and continued on her routine medications. She developed some cough and sputum production. She has some wheezing. She has no shortness of breath or fever. Chest pain has resolved. I was asked to see her in consultation. PAST MEDICAL HISTORY: Hypertension with nephrosclerosis; end-stage renal disease, on dialysis; atrial fibrillation; coronary artery disease, status post angioplasty; congestive heart failure; spinal stenosis, status post cervical laminectomy; recent right hip arthroplasty; and dialysis access difficulties with recent placement of left femoral vein dialysis catheter. MEDICATIONS: Reviewed. She is presently on no antibiotics or breathing treatments. ALLERGIES: None. SOCIAL HISTORY: She states she has never smoked. 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 REVIEW OF SYSTEMS: Otherwise unremarkable. PHYSICAL EXAMINATION: GENERAL: The patient is alert and responds appropriately. She appears weak. VITAL SIGNS: No fevers. Blood pressure is occasionally elevated. She had a temperature up to 100.4 degrees yesterday. SKIN: Warm and dry. HEENT: The head is normocephalic. NECK: No jugular venous distention. CHEST: Mild expiratory wheezing. CARDIAC: Rhythm is irregular. ABDOMEN: Soft and nontender. EXTREMITIES: Show a scar over the right hip and dialysis catheter in the left groin. ASSESSMENT: 1. Acute bronchitis versus possible pneumonia. 2. End-stage renal disease. 3. Hypertensive heart disease. 4. Atrial fibrillation. 5. Anemia of renal disease. PLAN: We will get a chest x-ray and order oral antibiotics and breathing treatments. I will follow closely with you. Roscoe Dalton M.D. DR: Shannon JOB#: [id number] CC: Keven Scott M.D.; Fax#: [phone]
--- NOTE | 2017-09-01 20:50 | General Progress Note ---
Assessment/Plan Problem List: (1) Chest pain ICD Codes: R07.9 - Chest pain, unspecified SNOMED: 56966355 (2) Cervical radiculopathy ICD Codes: M54.12 - Radiculopathy, cervical region SNOMED: 15292260 (3) ACS (acute coronary syndrome) ICD Codes: I24.9 - Acute ischemic heart disease, unspecified SNOMED: 778403874 (4) Cardiomegaly ICD Codes: I51.7 - Cardiomegaly SNOMED: 5109346 (5) ESRD (end stage renal disease) ICD Codes: N18.6 - End stage renal disease SNOMED: 52064367 (6) Pleural effusion, left ICD Codes: J90 - Pleural effusion, not elsewhere classified SNOMED: 66379431 Status: progressing Assessment/Plan clotted hd fistula is repaired no acute events s/p tachy hyperkalemia treatment per renal afebrile reviewed chart and labs Subjective ROS Limited/Unobtainable: Yes Allergies: Coded Allergies: No Known Allergies (Unverified , 02/26/16) Objective Last 24 Hour Vital Signs Date Time Temp Pulse Resp B/P (MAP) Pulse Ox O2 Delivery O2 Flow Rate FiO2 09/01/17 20:20 98 139/86 09/01/17 20:00 98.2 98 20 139/86 95 Room Air 09/01/17 19:58 Room Air 09/01/17 19:57 Room Air 09/01/17 19:39 97.9 09/01/17 16:00 97.9 86 18 124/76 100 Room Air 09/01/17 15:28 90 15 99 Room Air 09/01/17 15:19 87 18 Room Air 21 09/01/17 15:19 87 18 95 Room Air 09/01/17 14:00 124/88 09/01/17 12:00 98.1 98 20 124/88 94 Room Air 09/01/17 09:00 97 126/76 09/01/17 09:00 97 126/76 09/01/17 08:00 97.3 97 20 126/76 100 Room Air 09/01/17 05:13 126/77 09/01/17 04:00 97.7 64 20 126/77 92 Room Air 09/01/17 02:57 97.0 11/13/17 23:20 97.0 104 20 137/101 92 Room Air 08/31/17 21:40 105 154/104 08/31/17 21:40 154/104 08/31/17 21:00 105 154/105 Intake and Output 09/01/17 09/02/17 19:00 07:00 Intake Total 240 ml Balance 240 ml Intake Oral 240 ml # Bowel Movements 1 Laboratory Tests 09/01/17 18:00: White Blood Count 5.3, Red Blood Count 2.24L, Hemoglobin 7.1L, Hematocrit 23.4L , Mean Corpuscular Volume 104H, Mean Corpuscular Hemoglobin 31.9H, Mean Corpuscular Hemoglobin Concent 30.5L, Red Cell Distribution Width 18.5H, Platelet Count 120L, Mean Platelet Volume 5.4L, Neutrophils (%) (Auto) , Lymphocytes (%) (Auto) , Monocytes (%) (Auto) , Eosinophils (%) (Auto) , Basophils (%) (Auto) , Differential Total Cells Counted 100, Neutrophils % ( Manual) 75, Lymphocytes % (Manual) 8L, Monocytes % (Manual) 6, Eosinophils % ( Manual) 9H, Basophils % (Manual) 0, Band Neutrophils 2, Platelet Estimate DecreasedL, Platelet Morphology Normal, Hypochromasia 1+, Anisocytosis 1+, Macrocytosis 1+, Sodium Level 139, Potassium Level 4.4, Chloride Level 98, Carbon Dioxide Level 34H, Anion Gap 7, Blood Urea Nitrogen 53H, Creatinine 5.8H , Estimat Glomerular Filtration Rate 9.3, Glucose Level 93, Calcium Level 9.5 Height (Feet): 5 Height (Inches): 5.00 Weight (Pounds): 139 Neck: supple Abdomen: soft Keven Scott MD Sep 01, 2017 20:50
[2017-09-01] MEDS: Sensipar 30mg Tab ORAL SCH (21:00)
[2017-09-01] MEDS: Augmentin 875mg Tab ORAL SCH (21:00)
--- NOTE | 2017-09-01 22:03 | General Progress Note ---
Assessment/Plan Assessment/Plan IMPRESSION/PLAN: # Thrombocytopenia, not critically low. ok to monitor for now 1. Anemia of kidney disease. Nephrology service following --> Hgb goal above 7. S/p multiple transfusions. Has dropped from 8 to 7. If am labs show no improvement, transfse 2. Anemia of chronic disease. No evidence of iron deficiency 3. End-stage renal disease, hemodialysis dependent. 4. Coronary artery disease. 5. Hypertension. 6. Congestive heart failure. Subjective Constitutional: Reports: no symptoms HEENT: Reports: no symptoms Cardiovascular: Reports: no symptoms Respiratory: Reports: cough Neurologic/Psychiatric: Reports: no symptoms Endocrine: Reports: no symptoms Allergies: Coded Allergies: No Known Allergies (Unverified , 02/26/16) Subjective productive cough, no hemoptysis Objective Last 24 Hour Vital Signs Date Time Temp Pulse Resp B/P (MAP) Pulse Ox O2 Delivery O2 Flow Rate FiO2 09/01/17 21:00 139/86 09/01/17 20:20 98 139/86 09/01/17 20:00 98.2 98 20 139/86 95 Room Air 09/01/17 19:58 Room Air 09/01/17 19:57 Room Air 09/01/17 19:39 97.9 09/01/17 16:00 97.9 86 18 124/76 100 Room Air 09/01/17 15:28 90 15 99 Room Air 09/01/17 15:19 87 18 Room Air 09/01/17 15:19 87 18 95 Room Air 21 09/01/17 14:00 124/88 09/01/17 12:00 98.1 98 20 124/88 94 Room Air 09/01/17 09:00 97 126/76 09/01/17 09:00 97 126/76 09/01/17 08:00 97.3 97 20 126/76 100 Room Air 09/01/17 05:13 126/77 09/01/17 04:00 97.7 64 20 126/77 92 Room Air 09/01/17 02:57 97.0 08/31/17 23:20 97.0 104 20 137/101 92 Room Air Intake and Output 09/01/17 09/02/17 19:00 07:00 Intake Total 240 ml Balance 240 ml Intake Oral 240 ml # Bowel Movements 1 Laboratory Tests 09/01/17 18:00: White Blood Count 5.3, Red Blood Count 2.24L, Hemoglobin 7.1L, Hematocrit 23.4L , Mean Corpuscular Volume 104H, Mean Corpuscular Hemoglobin 31.9H, Mean Corpuscular Hemoglobin Concent 30.5L, Red Cell Distribution Width 18.5H, Platelet Count 120L, Mean Platelet Volume 5.4L, Neutrophils (%) (Auto) , Lymphocytes (%) (Auto) , Monocytes (%) (Auto) , Eosinophils (%) (Auto) , Basophils (%) (Auto) , Differential Total Cells Counted 100, Neutrophils % ( Manual) 75, Lymphocytes % (Manual) 8L, Monocytes % (Manual) 6, Eosinophils % ( Manual) 9H, Basophils % (Manual) 0, Band Neutrophils 2, Platelet Estimate DecreasedL, Platelet Morphology Normal, Hypochromasia 1+, Anisocytosis 1+, Macrocytosis 1+, Sodium Level 139, Potassium Level 4.4, Chloride Level 98, Carbon Dioxide Level 34H, Anion Gap 7, Blood Urea Nitrogen 53H, Creatinine 5.8H , Estimat Glomerular Filtration Rate 9.3, Glucose Level 93, Calcium Level 9.5 Height (Feet): 5 Height (Inches): 5.00 Weight (Pounds): 139 General Appearance: no apparent distress EENT: PERRL/EOMI Neck: normal alignment Cardiovascular: normal rate Abdomen: normal bowel sounds Extremities: normal range of motion Neurologic: 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
--- NOTE | 2017-09-01 22:16 | Consultation ---
History of Present Illness General Chief Complaint: Chest Pain Present Illness HPI 37M with history of HIV no currently on any antivirals or treatment presented with left buttock abscess. the pt is severely anxious she was circumstantial and stated that she wants to change some of her doctors. Allergies: Coded Allergies: No Known Allergies (Unverified , 02/26/16) Medication History Scheduled Albuterol Sulfate* (Proair Hfa*), 1 PUFF INH Q6H, (Reported) Cinacalcet* (Sensipar*), 30 MG ORAL DAILY, (Reported) Docusate Sodium* (Docusate Sodium*), 100 MG ORAL TWICE A DAY, (Reported) Hydromorphone HCl (Dilaudid), 2 MG ORAL Q4H, (Reported) Labetalol Hcl* (Normodyne*), 50 MG ORAL EVERY 12 HOURS, (Reported) Sevelamer Carbonate* (Renvela*), 1,600 MG ORAL THREE TIMES A DAY, (Reported) Scheduled PRN Alprazolam* (Xanax*), 1 TAB ORAL BID PRN for PRN Agitation/Anxiety, (Reported) Ondansetron Hcl* (Zofran*), 8 MG ORAL Q6H PRN for Nausea & Vomiting, (Reported) Miscellaneous Medications Apixaban (Eliquis), 2.5 MG PO, (Reported) Patient History History Provided By: Patient, Medical Record, PMD Healthcare decision maker Resuscitation status Full Code Advanced Directive on File No Past Medical/Surgical History Past Medical/Surgical History: (1) Acute non-ST segment elevation myocardial infarction (2) Cervicalgia (3) Cardiomegaly (4) ESRD (end stage renal disease) (5) Pleural effusion, left (6) Atrial fibrillation with RVR (7) Chest pain (8) Cervical radiculopathy (9) ACS (acute coronary syndrome) (10) Cough (11) PTSD (post-traumatic stress disorder) Review of Systems Psychiatric: Reports: prior hx, anxiety, depressed feelings, emotional problems Physical Exam General Appearance: no apparent distress, alert Neurologic: alert, oriented x 3, responsive, depressed affect Last 24 Hour Vital Signs Date Time Temp Pulse Resp B/P (MAP) Pulse Ox O2 Delivery O2 Flow Rate FiO2 09/01/17 21:00 139/86 09/01/17 20:20 98 139/86 09/01/17 20:00 98.2 98 20 139/86 95 Room Air 09/01/17 19:58 Room Air 09/01/17 19:57 Room Air 09/01/17 19:39 97.9 09/01/17 16:00 97.9 86 18 124/76 100 Room Air 09/01/17 15:28 90 15 99 Room Air 21 09/01/17 15:19 87 18 Room Air 21 09/01/17 15:19 87 18 95 Room Air 21 09/01/17 14:00 124/88 09/01/17 12:00 98.1 98 20 124/88 94 Room Air 09/01/17 09:00 97 126/76 09/01/17 09:00 97 126/76 09/01/17 08:00 97.3 97 20 126/76 100 Room Air 09/01/17 05:13 126/77 09/01/17 04:00 97.7 64 20 126/77 92 Room Air 09/01/17 02:57 97.0 08/31/17 23:20 97.0 104 20 137/101 92 Room Air Intake and Output 09/01/17 09/02/17 19:00 07:00 Intake Total 240 ml Balance 240 ml Intake Oral 240 ml # Bowel Movements 1 Laboratory Tests Test 09/01/17 18:00 White Blood Count 5.3 K/UL (4.8-10.8) Red Blood Count 2.24 M/UL (4.20-5.40) L Hemoglobin 7.1 G/DL (12.0-16.0) L Hematocrit 23.4 % (37.0-47.0) L Mean Corpuscular Volume 104 FL (80-99) H Mean Corpuscular Hemoglobin 31.9 PG (27.0-31.0) H Mean Corpuscular Hemoglobin Concent 30.5 G/DL (32.0-36.0) L Red Cell Distribution Width 18.5 % (11.6-14.8) H Platelet Count 120 K/UL (150-450) L Mean Platelet Volume 5.4 FL (6.5-10.1) L Neutrophils (%) (Auto) % (45.0-75.0) Lymphocytes (%) (Auto) % (20.0-45.0) Monocytes (%) (Auto) % (1.0-10.0) Eosinophils (%) (Auto) % (0.0-3.0) Basophils (%) (Auto) % (0.0-2.0) Differential Total Cells Counted 100 Neutrophils % (Manual) 75 % (45-75) Lymphocytes % (Manual) 8 % (20-45) L Monocytes % (Manual) 6 % (1-10) Eosinophils % (Manual) 9 % (0-3) H Basophils % (Manual) 0 % (0-2) Band Neutrophils 2 % (0-8) Platelet Estimate Decreased L Platelet Morphology Normal Hypochromasia 1+ Anisocytosis 1+ Macrocytosis 1+ Sodium Level 139 MMOL/L (136-145) Potassium Level 4.4 MMOL/L (3.5-5.1) Chloride Level 98 MMOL/L (98-107) Carbon Dioxide Level 34 MMOL/L (21-32) H Anion Gap 7 mmol/L (5-15) Blood Urea Nitrogen 53 mg/dL (7-18) H Creatinine 5.8 MG/DL (0.55-1.30) H Estimat Glomerular Filtration Rate 9.3 mL/min (>60) Glucose Level 93 MG/DL (74-106) Calcium Level 9.5 MG/DL (8.5-10.1) Height (Feet): 5 Height (Inches): 5.00 Weight (Pounds): 139 Medications Current Medications Medications (Trade) Dose Ordered Sig/Sneha Route PRN Reason Start Time Stop Time Status Last Admin Dose Admin Acetaminophen (Tylenol) 650 mg Q4H PRN ORAL Mild Pain/Temp > 100.5 08/29/17 21:00 09/28/17 20:59 Albuterol/ Ipratropium (Albuterol/ Ipratropium) 3 ml Q4HRT HHN 09/01/17 15:00 09/06/17 14:59 09/01/17 15:21 Amoxicillin/ Clavulanate Potassium (Augmentin) 875 mg EVERY 12 HOURS ORAL 09/01/17 21:00 09/08/17 20:59 09/01/17 21:00 Apixaban (Eliquis) 2.5 mg BID ORAL 08/30/17 09:00 09/22/17 12:59 11/14/17 18:29 Carvedilol (Coreg) 25 mg EVERY 12 HOURS ORAL 08/29/17 21:00 09/25/17 20:59 08/30/17 20:59 Chlorhexidine Gluconate (Rimma-Hex 2%) 1 applic DAILY@1999 TOPIC 08/30/17 20:00 09/29/17 19:59 08/31/17 20:26 Cinacalcet (Sensipar) 30 mg QHS ORAL 08/29/17 21:00 09/23/17 20:59 09/01/17 21:00 Clonidine HCl (Catapres) 0.1 mg EVERY 8 HOURS ORAL 08/29/17 22:00 09/22/17 17:59 09/01/17 21:00 Diltiazem HCl (Cardizem CD) 240 mg DAILY ORAL 09/01/17 09:00 10/01/17 08:59 Diphenhydramine HCl (Benadryl) 25 mg Q4H PRN IVP Itching 09/01/17 22:15 10/01/17 22:14 Docusate Sodium (Colace) 100 mg TID ORAL 08/30/17 09:00 09/22/17 17:59 09/01/17 18:29 Epoetin Brayan (Procrit (for ESRD on dialysis)) 10,000 units THU-THU-THU SUBQ 08/31/17 21:00 09/23/17 20:59 08/31/17 21:41 Hydromorphone HCl (Dilaudid) 0.5 mg Q4H PRN ORAL severe pain 09/01/17 16:30 09/08/17 16:29 Ondansetron HCl (Zofran) 4 mg Q6H PRN IVP Nausea & Vomiting 08/29/17 21:00 09/28/17 20:59 Oxycodone/ Acetaminophen (Percocet 10/325) 1 tab Q4H PRN ORAL moderate pain 08/29/17 21:15 09/03/17 09:14 09/01/17 18:29 Sevelamer Carbonate (Renvela) 2,400 mg THREE TIMES A DAY ORAL 08/30/17 09:00 09/23/17 12:59 09/01/17 18:29 Assessment/Plan Status: stable Assessment/Plan mdd anxiety cymbolta 30mg q daily Elva Car M.D. Sep 01, 2017 22:16
--- NOTE | 2017-09-01 23:15 | Cardiology Progress Note ---
Assessment/Plan Assessment/Plan 1. Atypical chest pain during HD, AMI is ruled out, echo reveals normal LV function, non-ischemic nuclear stress test at outside hospital in Dec 2016. Refused stress test this admission. 2. Hx of CAD, s/p PCI, continue ASA and statins. 3. Atrial fibrillation, continue Eliquis and carvedilol. 4. Hx of HTN, stage II, continue clonidine and coreg, increase cardizem. 5. Severe pulmonary HTN, likely due to ESRD. Subjective Subjective No cardiac events. Denies chest pain or SOB. Objective Last 24 Hour Vital Signs Date Time Temp Pulse Resp B/P (MAP) Pulse Ox O2 Delivery O2 Flow Rate FiO2 09/01/17 21:00 139/86 09/01/17 20:20 98 139/86 09/01/17 20:00 98.2 98 20 139/86 95 Room Air 09/01/17 19:58 Room Air 09/01/17 19:57 Room Air 09/01/17 19:39 97.9 09/01/17 16:00 97.9 86 18 124/76 100 Room Air 09/01/17 15:28 90 15 99 Room Air 21 09/01/17 15:19 87 18 Room Air 21 09/01/17 15:19 87 18 95 Room Air 21 09/01/17 14:00 124/88 09/01/17 12:00 98.1 98 20 124/88 94 Room Air 09/01/17 09:00 97 126/76 09/01/17 09:00 97 126/76 09/01/17 08:00 97.3 97 20 126/76 100 Room Air 09/01/17 05:13 126/77 09/01/17 04:00 97.7 64 20 126/77 92 Room Air 09/01/17 02:57 97.0 08/31/17 23:20 97.0 104 20 137/101 92 Room Air Intake and Output 09/01/17 09/02/17 19:00 07:00 Intake Total 240 ml Balance 240 ml Intake Oral 240 ml # Bowel Movements 1 2D Echo: LVEF 55%, RVSP 60 mmHg s/w severe pulmonary HTN. Laboratory Tests Test 09/01/17 18:00 White Blood Count 5.3 K/UL (4.8-10.8) Red Blood Count 2.24 M/UL (4.20-5.40) L Hemoglobin 7.1 G/DL (12.0-16.0) L Hematocrit 23.4 % (37.0-47.0) L Mean Corpuscular Volume 104 FL (80-99) H Mean Corpuscular Hemoglobin 31.9 PG (27.0-31.0) H Mean Corpuscular Hemoglobin Concent 30.5 G/DL (32.0-36.0) L Red Cell Distribution Width 18.5 % (11.6-14.8) H Platelet Count 120 K/UL (150-450) L Mean Platelet Volume 5.4 FL (6.5-10.1) L Neutrophils (%) (Auto) % (45.0-75.0) Lymphocytes (%) (Auto) % (20.0-45.0) Monocytes (%) (Auto) % (1.0-10.0) Eosinophils (%) (Auto) % (0.0-3.0) Basophils (%) (Auto) % (0.0-2.0) Differential Total Cells Counted 100 Neutrophils % (Manual) 75 % (45-75) Lymphocytes % (Manual) 8 % (20-45) L Monocytes % (Manual) 6 % (1-10) Eosinophils % (Manual) 9 % (0-3) H Basophils % (Manual) 0 % (0-2) Band Neutrophils 2 % (0-8) Platelet Estimate Decreased L Platelet Morphology Normal Hypochromasia 1+ Anisocytosis 1+ Macrocytosis 1+ Sodium Level 139 MMOL/L (136-145) Potassium Level 4.4 MMOL/L (3.5-5.1) Chloride Level 98 MMOL/L (98-107) Carbon Dioxide Level 34 MMOL/L (21-32) H Anion Gap 7 mmol/L (5-15) Blood Urea Nitrogen 53 mg/dL (7-18) H Creatinine 5.8 MG/DL (0.55-1.30) H Estimat Glomerular Filtration Rate 9.3 mL/min (>60) Glucose Level 93 MG/DL (74-106) Calcium Level 9.5 MG/DL (8.5-10.1) Objective HEENT: PERRLA, EOMI, Anicteric , pale conjunctiva. NECK: No JVD, carotid upstroke 2+ B/L with o bruit LUNGS: Decreased breath sounds bilaterally. CVS: Normal S1S2, irregularly irregular, tachycardia, 2/6 MSM at LSB. ABDOMEN: Benign, NT/ND, + BS Ext: No evidence of edema, clubbing or cyanosis. ALVINO LIZARRAGA Sep 01, 2017 23:15
[2017-09-02] VITALS (7 sets, daily range): BP systolic 108–132; BP diastolic 77–91
[2017-09-02] MEDS: DiphenhydrAMINE 50mg/ml Inj IVP PRN ×4 (00:39→21:43)
--- NOTE | 2017-09-02 01:45 | Consultation ---
DATE OF CONSULTATION: 09/01/2017 INFECTIOUS DISEASE CONSULTATION This consult is for coverage of Dr. Rubio. PRIMARY ATTENDING PHYSICIAN: Keven Scott M.D. REASON FOR CONSULTATION: Pneumonia and bronchitis. HISTORY OF PRESENT ILLNESS: The patient is a 51-year-old -[place] female, admitted on 08/23/2017 because of chest pain for rule out of the [place]. The patient has multiple medical problems including end-stage renal disease. Since yesterday, had productive coughing and had a low-grade fever of 100.4 x1. PAST MEDICAL HISTORY: Significant for end-stage renal disease, on hemodialysis, coronary artery disease status post stent, pulmonary hypertension, right hip arthroplasty surgery, spinal stenosis, anemia, thrombocytopenia, and chronic pain syndrome. She had also left arm fistula that is nonfunctional. MEDICATIONS: The patient is currently getting following medications: Augmentin, hydromorphone, DuoNeb inhaler, Cardizem, Epogen, Apixaban, Colace, Renvela, Benadryl, clonidine, Percocet, Tylenol, Sensipar, Zofran, and Coreg. SOCIAL HISTORY: Denies alcohol, drug abuse, or smoking. . REVIEW OF SYSTEMS: She is complaining of chest pain and pain in hip and neck and all over the body and coughing that is productive of greenish sputum. She has shortness of breath on exertion. No nausea. No vomiting. Does not make urine. PHYSICAL EXAMINATION: GENERAL APPEARANCE: She is awake and alert. VITAL SIGNS: Temperature 98.1, pulse 98, blood pressure 124/88. HEAD AND NECK: Moist mucous membranes. HEART: S1 and S2. Regular. LUNGS: Clear. ABDOMEN: Soft and nontender. EXTREMITIES: She has muscle atrophy. Has AV graft in the left arm. Has left femoral hemodialysis catheter. IMPRESSION: 1. New onset of productive coughing and low-grade fever, may have pneumonia or bronchitis. 2. The patient now has end-stage renal disease, on hemodialysis. 3. She has coronary artery disease, anemia, and thrombocytopenia. 4. Pulmonary hypertension. RECOMMENDATIONS: We will follow up the chest x-ray. The patient already started on Augmentin by pulmonary doctor. At the end of my exam, I thank Dr. Scott for involving me in the care of this patient. Lenin Warner M.D. DR: SALMA JOB#: [id number] CC:
[2017-09-02] MEDS: Albuterol/Ipratropium 3ml neb HHN SCH ×6 (04:25→23:00)
--- NOTE | 2017-09-02 08:18 | General Progress Note ---
Assessment/Plan Assessment/Plan (1) Right hip pain (2) Right hip Fx s/p ORIF (3) Cervical DDD (4) Cervical Spondylosis (5) Cervical Radiculopathy (6) H/o Cervical surgery Pt to be continued on the Dilaudid and Percocet. D/w Dr. Stockton and he concurred. Subjective Date patient seen: Sep 02, 2017 Time patient seen: 07:15 - am Allergies: Coded Allergies: No Known Allergies (Unverified , 02/26/16) Subjective REVIEW OF SYSTEMS: She denies rash, fever, chills, sweating, dizziness, drowsiness, blurred vision, sore throat, or change in weight. No shortness of breath or chest pain. No nausea, vomiting, diarrhea, or blood in the stool or urine. No bowel or bladder incontinence. No dysuria. She is complaining of right hip and neck pain. SUBJECTIVE: Patient is laying in bed no signs of distress or pain. She continues to c/o pain. Dilaudid was decreased by Dr. Guthrie to 0.5mg tabs. Objective Last 24 Hour Vital Signs Date Time Temp Pulse Resp B/P (MAP) Pulse Ox O2 Delivery O2 Flow Rate FiO2 09/02/17 08:00 98.2 104 18 122/78 94 Room Air 09/02/17 06:55 108 18 100 Room Air 09/02/17 06:50 90 16 96 Room Air 09/02/17 05:31 97.7 09/02/17 05:03 131/85 09/02/17 04:00 97.7 134 20 131/85 98 Room Air 09/02/17 03:45 92 20 99 Room Air 09/02/17 03:30 89 16 97 Room Air 09/02/17 00:00 98.2 112 20 108/78 100 Room Air 09/01/17 23:33 87 18 99 Room Air 09/01/17 23:33 82 18 95 Room Air 09/01/17 21:00 139/86 09/01/17 20:20 98 139/86 09/01/17 20:00 98.2 98 20 139/86 95 Room Air 09/01/17 19:58 Room Air 09/01/17 19:57 Room Air 09/01/17 16:00 97.9 86 18 124/76 100 Room Air 09/01/17 15:28 90 15 99 Room Air 21 09/01/17 15:19 87 18 Room Air 21 09/01/17 15:19 87 18 95 Room Air 21 09/01/17 14:00 124/88 09/01/17 12:00 98.1 98 20 124/88 94 Room Air 09/01/17 09:00 97 126/76 09/01/17 09:00 97 126/76 Laboratory Tests 09/01/17 18:00: White Blood Count 5.3, Red Blood Count 2.24L, Hemoglobin 7.1L, Hematocrit 23.4L , Mean Corpuscular Volume 104H, Mean Corpuscular Hemoglobin 31.9H, Mean Corpuscular Hemoglobin Concent 30.5L, Red Cell Distribution Width 18.5H, Platelet Count 120L, Mean Platelet Volume 5.4L, Neutrophils (%) (Auto) , Lymphocytes (%) (Auto) , Monocytes (%) (Auto) , Eosinophils (%) (Auto) , Basophils (%) (Auto) , Differential Total Cells Counted 100, Neutrophils % ( Manual) 75, Lymphocytes % (Manual) 8L, Monocytes % (Manual) 6, Eosinophils % ( Manual) 9H, Basophils % (Manual) 0, Band Neutrophils 2, Platelet Estimate DecreasedL, Platelet Morphology Normal, Hypochromasia 1+, Anisocytosis 1+, Macrocytosis 1+, Sodium Level 139, Potassium Level 4.4, Chloride Level 98, Carbon Dioxide Level 34H, Anion Gap 7, Blood Urea Nitrogen 53H, Creatinine 5.8H , Estimat Glomerular Filtration Rate 9.3, Glucose Level 93, Calcium Level 9.5 Height (Feet): 5 Height (Inches): 5.00 Weight (Pounds): 139 Objective GENERAL: Alert, awake, and oriented. HEENT: PERRLA. NECK: Range of motion is decreased due to the patient's condition with tenderness as well as adenopathy with surgical scar noted in the midline of the posterior cervical area. LUNGS: Decreased breath sounds bilaterally. ABDOMEN: Benign. BACK: Range of motion is decreased in flexion and extension. EXTREMITIES: No cyanosis. No clubbing. NEUROLOGICAL: No changes. Procedure: XRAY Hip Routine 2v+ R Indications: hip pain Findings: Cemented total hip arthroplasty demonstrated. No malalignment or definite acute fracture is identified. The bones are severely osteopenic. DAIJA FERRARI Sep 02, 2017 08:18
[2017-09-02] MEDS: Carvedilol 25mg Tab ORAL SCH ×3 (09:00→20:37)
[2017-09-02] MEDS: dilTIAZem HCl CD 240mg cap ORAL SCH (09:00)
[2017-09-02] MEDS: Eliquis 2.5mg tablet ORAL SCH ×2 (10:21→17:40)
[2017-09-02] MEDS: DULoxetine 30mg cap ORAL SCH (10:21)
[2017-09-02] MEDS: Docusate 100mg cap ORAL SCH ×3 (10:21→17:40)
[2017-09-02] MEDS: Augmentin 875mg Tab ORAL SCH (10:22)
--- NOTE | 2017-09-02 11:11 | Infectious Diseases Prog Note ---
Assessment/Plan Assessment/Plan antibiotics : augmentin A 1. pneumonia 2. renal failure 3. pulmonary hypertension P 1. continue augmentin 2. add levoquin 3. will follow up cultures Subjective Constitutional: Denies: fever, chills Respiratory: Reports: shortness of breath, productive cough - with green sputum Gastrointestinal/Abdominal: Reports: nausea, Denies: vomiting, diarrhea Musculoskeletal: Reports: pain Allergies: Coded Allergies: No Known Allergies (Unverified , 02/26/16) Objective Vital Signs Last 24 Hour Vital Signs Date Time Temp Pulse Resp B/P (MAP) Pulse Ox O2 Delivery O2 Flow Rate FiO2 09/02/17 09:00 104 122/78 09/02/17 08:00 98.2 104 18 122/78 94 Room Air 09/02/17 06:55 108 18 100 Room Air 09/02/17 06:50 90 16 96 Room Air 09/02/17 05:31 97.7 09/02/17 05:03 131/85 09/02/17 04:00 97.7 134 20 131/85 98 Room Air 09/02/17 03:45 92 20 99 Room Air 09/02/17 03:30 89 16 97 Room Air 09/02/17 00:00 98.2 112 20 108/78 100 Room Air 09/01/17 23:33 87 18 99 Room Air 09/01/17 23:33 82 18 95 Room Air 09/01/17 21:00 139/86 09/01/17 20:20 98 139/86 09/01/17 20:00 98.2 98 20 139/86 95 Room Air 09/01/17 19:58 Room Air 09/01/17 19:57 Room Air 09/01/17 16:00 97.9 86 18 124/76 100 Room Air 09/01/17 15:28 90 15 99 Room Air 09/01/17 15:19 87 18 Room Air 09/01/17 15:19 87 18 95 Room Air 09/01/17 14:00 124/88 09/01/17 12:00 98.1 98 20 124/88 94 Room Air Height (Feet): 5 Height (Inches): 5.00 Weight (Pounds): 139 Respiratory/Chest: lungs clear Cardiovascular: normal rate, regular rhythm, no gallop/murmur Abdomen: soft, non tender Extremities: no edema, other - left groin catheter Microbiology Date/Time Source Procedure Growth Status 09/01/17 00:00 Sputum Expectorated Gram Stain - Final Resulted 09/01/17 00:00 Sputum Expectorated Sputum Culture Pending Resulted Laboratory Tests Test 09/01/17 18:00 White Blood Count 5.3 K/UL (4.8-10.8) Red Blood Count 2.24 M/UL (4.20-5.40) L Hemoglobin 7.1 G/DL (12.0-16.0) L Hematocrit 23.4 % (37.0-47.0) L Mean Corpuscular Volume 104 FL (80-99) H Mean Corpuscular Hemoglobin 31.9 PG (27.0-31.0) H Mean Corpuscular Hemoglobin Concent 30.5 G/DL (32.0-36.0) L Red Cell Distribution Width 18.5 % (11.6-14.8) H Platelet Count 120 K/UL (150-450) L Mean Platelet Volume 5.4 FL (6.5-10.1) L Neutrophils (%) (Auto) % (45.0-75.0) Lymphocytes (%) (Auto) % (20.0-45.0) Monocytes (%) (Auto) % (1.0-10.0) Eosinophils (%) (Auto) % (0.0-3.0) Basophils (%) (Auto) % (0.0-2.0) Differential Total Cells Counted 100 Neutrophils % (Manual) 75 % (45-75) Lymphocytes % (Manual) 8 % (20-45) L Monocytes % (Manual) 6 % (1-10) Eosinophils % (Manual) 9 % (0-3) H Basophils % (Manual) 0 % (0-2) Band Neutrophils 2 % (0-8) Platelet Estimate Decreased L Platelet Morphology Normal Hypochromasia 1+ Anisocytosis 1+ Macrocytosis 1+ Sodium Level 139 MMOL/L (136-145) Potassium Level 4.4 MMOL/L (3.5-5.1) Chloride Level 98 MMOL/L (98-107) Carbon Dioxide Level 34 MMOL/L (21-32) H Anion Gap 7 mmol/L (5-15) Blood Urea Nitrogen 53 mg/dL (7-18) H Creatinine 5.8 MG/DL (0.55-1.30) H Estimat Glomerular Filtration Rate 9.3 mL/min (>60) Glucose Level 93 MG/DL (74-106) Calcium Level 9.5 MG/DL (8.5-10.1) ENRICO GASTELUM Sep 02, 2017 11:11
--- NOTE | 2017-09-02 12:08 | Nephrology Progress Note ---
Assessment/Plan Problem List: (1) ESRD (end stage renal disease) (2) Cardiomegaly (3) Atrial fibrillation with RVR (4) Pleural effusion, left Assessment Refused DC to SNF- Appealing discharge ESRD Diaalysis via left thigh Cath- ( left arm aneurysmal fistual clotted) CHF Ej Fx 40% global hypokinesis At fib HTN Right hip arthroplasty 07/2017, spinal stenosis cervical Radiculopathy ACS? Plan HD and UF 08/31 next 09/02 continue Cardio Advise- Keep BP and renal parameters in check adjust BP meds 2 D Echo global hypokinesis and EjFx 40% add dig PRN unsafe to go home with femoral cath Subjective ROS Limited/Unobtainable: No Constitutional: Reports: malaise Objective Objective Last 24 Hour Vital Signs Date Time Temp Pulse Resp B/P (MAP) Pulse Ox O2 Delivery O2 Flow Rate FiO2 09/02/17 11:35 109 18 100 Room Air 09/02/17 11:30 99 16 96 Room Air 09/02/17 09:00 104 122/78 09/02/17 08:00 98.2 104 18 122/78 94 Room Air 09/02/17 06:55 108 18 100 Room Air 09/02/17 06:50 90 16 96 Room Air 09/02/17 05:31 97.7 09/02/17 05:03 131/85 09/02/17 04:00 97.7 134 20 131/85 98 Room Air 09/02/17 03:45 92 20 99 Room Air 09/02/17 03:30 89 16 97 Room Air 09/02/17 00:00 98.2 112 20 108/78 100 Room Air 09/01/17 23:33 87 18 99 Room Air 09/01/17 23:33 82 18 95 Room Air 09/01/17 21:00 139/86 09/01/17 20:20 98 139/86 09/01/17 20:00 98.2 98 20 139/86 95 Room Air 09/01/17 19:58 Room Air 09/01/17 19:57 Room Air 09/01/17 16:00 97.9 86 18 124/76 100 Room Air 09/01/17 15:28 90 15 99 Room Air 09/01/17 15:19 87 18 Room Air 09/01/17 15:19 87 18 95 Room Air 21 09/01/17 14:00 124/88 Laboratory Tests 09/01/17 18:00: White Blood Count 5.3, Red Blood Count 2.24L, Hemoglobin 7.1L, Hematocrit 23.4L , Mean Corpuscular Volume 104H, Mean Corpuscular Hemoglobin 31.9H, Mean Corpuscular Hemoglobin Concent 30.5L, Red Cell Distribution Width 18.5H, Platelet Count 120L, Mean Platelet Volume 5.4L, Neutrophils (%) (Auto) , Lymphocytes (%) (Auto) , Monocytes (%) (Auto) , Eosinophils (%) (Auto) , Basophils (%) (Auto) , Differential Total Cells Counted 100, Neutrophils % ( Manual) 75, Lymphocytes % (Manual) 8L, Monocytes % (Manual) 6, Eosinophils % ( Manual) 9H, Basophils % (Manual) 0, Band Neutrophils 2, Platelet Estimate DecreasedL, Platelet Morphology Normal, Hypochromasia 1+, Anisocytosis 1+, Macrocytosis 1+, Sodium Level 139, Potassium Level 4.4, Chloride Level 98, Carbon Dioxide Level 34H, Anion Gap 7, Blood Urea Nitrogen 53H, Creatinine 5.8H , Estimat Glomerular Filtration Rate 9.3, Glucose Level 93, Calcium Level 9.5 Height (Feet): 5 Height (Inches): 5.00 Weight (Pounds): 139 General Appearance: no apparent distress Objective no other changes ALFREDO MONTEIRO Sep 02, 2017 12:08
[2017-09-02 14:08] LABS: MEAN CORPUSCULAR HEMOGLOBIN 32.9 PG (27.0-31.0); MEAN CORPUSCULAR HGB CONC 31.6 G/DL (32.0-36.0); MEAN CORPUSCULAR VOLUME 104 FL (80-99); MEAN PLATELET VOLUME 6.6 FL (6.5-10.1); PLATELET COUNT 144 K/UL (150-450); RED BLOOD COUNT 2.33 M/UL (4.20-5.40); WHITE BLOOD COUNT 5.2 K/UL (4.8-10.8)
[2017-09-02 14:36] LABS: ANISOCYTOSIS 1+; BAND NEUTROPHILS % (MANUAL) 0 % (0-8); BASOPHILS % (MANUAL) 0 % (0-2); EOSINOPHILS % (MANUAL) 6 % (0-3); LYMPHOCYTES % (MANUAL) 10 % (20-45); MACROCYTES 1+; NEUTROPHILS % (MANUAL) 80 % (45-75); PLATELET ESTIMATE DECREASED; PLATELET MORPHOLOGY NORMAL; TOTAL CELLS COUNTED 100
[2017-09-02 14:38] LABS: HYPOCHROMASIA 1+
--- NOTE | 2017-09-02 17:50 | Pulmonology Progress Note ---
Assessment/Plan Assessment/Plan 1. Acute bronchitis 2. End-stage renal disease. 3. Hypertensive heart disease. 4. Atrial fibrillation. 5. Anemia of renal disease. CXR with no pneumonia better w HHN and abx high HR w A fib anemia, for transfusion Subjective Respiratory: Reports: productive cough - better, Denies: shortness of breath Allergies: Coded Allergies: No Known Allergies (Unverified , 02/26/16) Objective Last 24 Hour Vital Signs Date Time Temp Pulse Resp B/P (MAP) Pulse Ox O2 Delivery O2 Flow Rate FiO2 09/02/17 15:57 98.1 108 20 111/89 98 Room Air 09/02/17 15:43 Room Air 09/02/17 12:32 97.7 18 132/91 98 Room Air 09/02/17 11:35 109 18 100 Room Air 09/02/17 11:30 99 16 96 Room Air 09/02/17 09:00 104 122/78 09/02/17 08:00 98.2 104 18 122/78 94 Room Air 09/02/17 06:55 108 18 100 Room Air 09/02/17 06:50 90 16 96 Room Air 09/02/17 05:31 97.7 09/02/17 05:03 131/85 09/02/17 04:00 97.7 134 20 131/85 98 Room Air 09/02/17 03:45 92 20 99 Room Air 09/02/17 03:30 89 16 97 Room Air 09/02/17 00:00 98.2 112 20 108/78 100 Room Air 09/01/17 23:33 87 18 99 Room Air 09/01/17 23:33 82 18 95 Room Air 09/01/17 21:00 139/86 09/01/17 20:20 98 139/86 09/01/17 20:00 98.2 98 20 139/86 95 Room Air 09/01/17 19:58 Room Air 09/01/17 19:57 Room Air General Appearance: no acute distress HEENT: atraumatic Respiratory/Chest: lungs clear Cardiovascular: tachycardia, irregularly irregular Microbiology Date/Time Source Procedure Growth Status 09/01/17 00:00 Sputum Expectorated Gram Stain - Final Resulted 09/01/17 00:00 Sputum Expectorated Sputum Culture Pending Resulted Laboratory Tests 09/01/17 18:00: White Blood Count 5.3, Red Blood Count 2.24L, Hemoglobin 7.1L, Hematocrit 23.4L , Mean Corpuscular Volume 104H, Mean Corpuscular Hemoglobin 31.9H, Mean Corpuscular Hemoglobin Concent 30.5L, Red Cell Distribution Width 18.5H, Platelet Count 120L, Mean Platelet Volume 5.4L, Neutrophils (%) (Auto) , Lymphocytes (%) (Auto) , Monocytes (%) (Auto) , Eosinophils (%) (Auto) , Basophils (%) (Auto) , Differential Total Cells Counted 100, Neutrophils % ( Manual) 75, Lymphocytes % (Manual) 8L, Monocytes % (Manual) 6, Eosinophils % ( Manual) 9H, Basophils % (Manual) 0, Band Neutrophils 2, Platelet Estimate DecreasedL, Platelet Morphology Normal, Hypochromasia 1+, Anisocytosis 1+, Macrocytosis 1+, Sodium Level 139, Potassium Level 4.4, Chloride Level 98, Carbon Dioxide Level 34H, Anion Gap 7, Blood Urea Nitrogen 53H, Creatinine 5.8H , Estimat Glomerular Filtration Rate 9.3, Glucose Level 93, Calcium Level 9.5 09/02/17 13:30: White Blood Count 5.2, Red Blood Count 2.33L, Hemoglobin 7.7L, Hematocrit 24.3L , Mean Corpuscular Volume 104H, Mean Corpuscular Hemoglobin 32.9H, Mean Corpuscular Hemoglobin Concent 31.6L, Red Cell Distribution Width 18.0H, Platelet Count 144L, Mean Platelet Volume 6.6, Neutrophils (%) (Auto) , Lymphocytes (%) (Auto) , Monocytes (%) (Auto) , Eosinophils (%) (Auto) , Basophils (%) (Auto) , Differential Total Cells Counted 100, Neutrophils % ( Manual) 80H, Lymphocytes % (Manual) 10L, Monocytes % (Manual) 4, Eosinophils % ( Manual) 6H, Basophils % (Manual) 0, Band Neutrophils 0, Platelet Estimate DecreasedL, Platelet Morphology Normal, Hypochromasia 1+, Anisocytosis 1+, Macrocytosis 1+ Current Medications Medications (Trade) Dose Ordered Sig/Sneha Route PRN Reason Start Time Stop Time Status Last Admin Dose Admin Acetaminophen (Tylenol) 650 mg Q4H PRN ORAL Mild Pain/Temp > 100.5 08/29/17 21:00 09/28/17 20:59 Albuterol/ Ipratropium (Albuterol/ Ipratropium) 3 ml Q4HRT HHN 09/01/17 15:00 09/06/17 14:59 09/02/17 11:41 Amoxicillin/ Clavulanate Potassium (Augmentin) 500 mg QHS ORAL 09/02/17 21:00 09/09/17 20:59 Apixaban (Eliquis) 2.5 mg BID ORAL 08/30/17 09:00 09/22/17 12:59 09/02/17 17:40 Carvedilol (Coreg) 25 mg EVERY 12 HOURS ORAL 08/29/17 21:00 09/25/17 20:59 08/30/17 20:59 Chlorhexidine Gluconate (Rimma-Hex 2%) 1 applic DAILY@1999 TOPIC 08/30/17 20:00 09/29/17 19:59 08/31/17 20:26 Cinacalcet (Sensipar) 30 mg QHS ORAL 08/29/17 21:00 09/23/17 20:59 09/01/17 21:00 Clonidine HCl (Catapres) 0.1 mg EVERY 8 HOURS ORAL 08/29/17 22:00 09/22/17 17:59 09/01/17 21:00 Diltiazem HCl (Cardizem CD) 240 mg DAILY ORAL 09/01/17 09:00 10/01/17 08:59 Diphenhydramine HCl (Benadryl) 25 mg Q4H PRN IVP Itching 09/01/17 22:15 10/01/17 22:14 09/02/17 17:40 Docusate Sodium (Colace) 100 mg TID ORAL 08/30/17 09:00 09/22/17 17:59 09/02/17 17:40 Duloxetine HCl (Cymbalta) 30 mg DAILY ORAL 09/02/17 09:00 10/02/17 08:59 09/02/17 10:21 Epoetin Brayan (Procrit (for ESRD on dialysis)) 10,000 units THU-THU-THU SUBQ 08/31/17 21:00 09/23/17 20:59 08/31/17 21:41 Hydromorphone HCl (Dilaudid) 0.5 mg Q4H PRN ORAL severe pain 09/01/17 16:30 09/08/17 16:29 Levofloxacin (Levaquin) 250 mg QOD ORAL 09/02/17 12:00 09/09/17 11:59 09/02/17 14:31 Ondansetron HCl (Zofran) 4 mg Q6H PRN IVP Nausea & Vomiting 08/29/17 21:00 09/28/17 20:59 Oxycodone/ Acetaminophen (Percocet 10/325) 1 tab Q4H PRN ORAL moderate pain 08/29/17 21:15 09/03/17 09:14 09/02/17 17:41 Sevelamer Carbonate (Renvela) 2,400 mg THREE TIMES A DAY ORAL 08/30/17 09:00 09/23/17 12:59 09/02/17 17:40 LA DOS SANTOS Sep 02, 2017 17:50
[2017-09-02] MEDS: Sensipar 30mg Tab ORAL SCH (20:33)
[2017-09-02] MEDS: Dyna-Hex 2% Top Sol 2oz TOPIC SCH (20:33)
--- NOTE | 2017-09-02 20:54 | General Progress Note ---
Assessment/Plan Problem List: (1) Chest pain ICD Codes: R07.9 - Chest pain, unspecified SNOMED: 82018466 (2) Cervical radiculopathy ICD Codes: M54.12 - Radiculopathy, cervical region SNOMED: 41025807 (3) ACS (acute coronary syndrome) ICD Codes: I24.9 - Acute ischemic heart disease, unspecified SNOMED: 999112383 (4) Cardiomegaly ICD Codes: I51.7 - Cardiomegaly SNOMED: 0167841 (5) ESRD (end stage renal disease) ICD Codes: N18.6 - End stage renal disease SNOMED: 61225413 (6) Pleural effusion, left ICD Codes: J90 - Pleural effusion, not elsewhere classified SNOMED: 47112255 Status: progressing Assessment/Plan clotted hd fistula is repaired wants a different final finisher so called dr bermudez for renal consult pvd chronic pain esrd on hd femoral cath anemia hip pain for which i consulted dr yessica garrett Subjective Allergies: Coded Allergies: No Known Allergies (Unverified , 02/26/16) Subjective hip pain Objective Last 24 Hour Vital Signs Date Time Temp Pulse Resp B/P (MAP) Pulse Ox O2 Delivery O2 Flow Rate FiO2 09/02/17 20:37 70 128/77 09/02/17 20:26 97.9 70 18 128/77 98 Room Air 09/02/17 19:11 95 18 100 Room Air 09/02/17 18:59 83 18 97 Room Air 09/02/17 18:20 98.2 126 20 111/83 98 Room Air 09/02/17 15:57 98.1 108 20 111/89 98 Room Air 09/02/17 15:43 Room Air 09/02/17 12:32 97.7 18 132/91 98 Room Air 09/02/17 11:35 109 18 100 Room Air 09/02/17 11:30 99 16 96 Room Air 09/02/17 09:00 104 122/78 09/02/17 08:00 98.2 104 18 122/78 94 Room Air 09/02/17 06:55 108 18 100 Room Air 09/02/17 06:50 90 16 96 Room Air 09/02/17 05:31 97.7 09/02/17 05:03 131/85 09/02/17 04:00 97.7 134 20 131/85 98 Room Air 09/02/17 03:45 92 20 99 Room Air 21 09/02/17 03:30 89 16 97 Room Air 21 09/02/17 00:00 98.2 112 20 108/78 100 Room Air 09/01/17 23:33 87 18 99 Room Air 21 09/01/17 23:33 82 18 95 Room Air 09/01/17 21:00 139/86 Intake and Output 09/02/17 09/03/17 19:00 07:00 Intake Total 500 ml Balance 500 ml Intake Oral 500 ml Laboratory Tests 09/02/17 13:30: White Blood Count 5.2, Red Blood Count 2.33L, Hemoglobin 7.7L, Hematocrit 24.3L , Mean Corpuscular Volume 104H, Mean Corpuscular Hemoglobin 32.9H, Mean Corpuscular Hemoglobin Concent 31.6L, Red Cell Distribution Width 18.0H, Platelet Count 144L, Mean Platelet Volume 6.6, Neutrophils (%) (Auto) , Lymphocytes (%) (Auto) , Monocytes (%) (Auto) , Eosinophils (%) (Auto) , Basophils (%) (Auto) , Differential Total Cells Counted 100, Neutrophils % ( Manual) 80H, Lymphocytes % (Manual) 10L, Monocytes % (Manual) 4, Eosinophils % ( Manual) 6H, Basophils % (Manual) 0, Band Neutrophils 0, Platelet Estimate DecreasedL, Platelet Morphology Normal, Hypochromasia 1+, Anisocytosis 1+, Macrocytosis 1+ Height (Feet): 5 Height (Inches): 5.00 Weight (Pounds): 139 Cardiovascular: regular rhythm Keven Scott MD Sep 02, 2017 20:54
[2017-09-02] MEDS: Epogen (for ESRD on dialysis) SUBQ SCH (21:42)
--- NOTE | 2017-09-02 22:08 | General Progress Note ---
Assessment/Plan Assessment/Plan IMPRESSION/PLAN: # Thrombocytopenia, not critically low. ok to monitor for now 1. Anemia of kidney disease. Nephrology service following --> Hgb goal above 7. S/p multiple transfusions. To receive additional transfusion. Continue to watch counts 2. Anemia of chronic disease. No evidence of iron deficiency 3. End-stage renal disease, hemodialysis dependent. 4. Coronary artery disease. 5. Hypertension. 6. Congestive heart failure. Subjective Allergies: Coded Allergies: No Known Allergies (Unverified , 02/26/16) All Systems: reviewed and negative except above Subjective pt is to have blood transfusion Objective Last 24 Hour Vital Signs Date Time Temp Pulse Resp B/P (MAP) Pulse Ox O2 Delivery O2 Flow Rate FiO2 09/02/17 21:45 128/77 09/02/17 20:37 70 128/77 09/02/17 20:26 97.9 70 18 128/77 98 Room Air 09/02/17 19:11 95 18 100 Room Air 09/02/17 18:59 83 18 97 Room Air 09/02/17 18:20 98.2 126 20 111/83 98 Room Air 09/02/17 15:57 98.1 108 20 111/89 98 Room Air 09/02/17 15:43 Room Air 21 09/02/17 12:32 97.7 18 132/91 98 Room Air 09/02/17 11:35 109 18 100 Room Air 09/02/17 11:30 99 16 96 Room Air 21 09/02/17 09:00 104 122/78 09/02/17 08:00 98.2 104 18 122/78 94 Room Air 09/02/17 06:55 108 18 100 Room Air 09/02/17 06:50 90 16 96 Room Air 21 09/02/17 05:31 97.7 09/02/17 05:03 131/85 09/02/17 04:00 97.7 134 20 131/85 98 Room Air 09/02/17 03:45 92 20 99 Room Air 09/02/17 03:30 89 16 97 Room Air 21 09/02/17 00:00 98.2 112 20 108/78 100 Room Air 09/01/17 23:33 87 18 99 Room Air 21 09/01/17 23:33 82 18 95 Room Air 21 Intake and Output 09/02/17 09/03/17 19:00 07:00 Intake Total 500 ml Balance 500 ml Intake Oral 500 ml Laboratory Tests 09/02/17 13:30: White Blood Count 5.2, Red Blood Count 2.33L, Hemoglobin 7.7L, Hematocrit 24.3L , Mean Corpuscular Volume 104H, Mean Corpuscular Hemoglobin 32.9H, Mean Corpuscular Hemoglobin Concent 31.6L, Red Cell Distribution Width 18.0H, Platelet Count 144L, Mean Platelet Volume 6.6, Neutrophils (%) (Auto) , Lymphocytes (%) (Auto) , Monocytes (%) (Auto) , Eosinophils (%) (Auto) , Basophils (%) (Auto) , Differential Total Cells Counted 100, Neutrophils % ( Manual) 80H, Lymphocytes % (Manual) 10L, Monocytes % (Manual) 4, Eosinophils % ( Manual) 6H, Basophils % (Manual) 0, Band Neutrophils 0, Platelet Estimate DecreasedL, Platelet Morphology Normal, Hypochromasia 1+, Anisocytosis 1+, Macrocytosis 1+ Height (Feet): 5 Height (Inches): 5.00 Weight (Pounds): 139 General Appearance: no apparent distress EENT: normal ENT inspection Neck: normal alignment Cardiovascular: normal peripheral pulses Respiratory/Chest: chest wall non-tender Abdomen: no organomegaly Extremities: non-tender Edema: trace edema Lauri Macias Sep 02, 2017 22:08
--- NOTE | 2017-09-02 23:11 | General Progress Note ---
Assessment/Plan Status: stable, progressing Assessment/Plan mdd cymblta 30mg qam Subjective Date patient seen: Sep 02, 2017 Neurologic/Psychiatric: Reports: anxiety, depressed, emotional problems Allergies: Coded Allergies: No Known Allergies (Unverified , 02/26/16) Objective Last 24 Hour Vital Signs Date Time Temp Pulse Resp B/P (MAP) Pulse Ox O2 Delivery O2 Flow Rate FiO2 09/02/17 21:45 128/77 09/02/17 20:37 70 128/77 09/02/17 20:26 97.9 70 18 128/77 98 Room Air 09/02/17 19:11 95 18 100 Room Air 21 09/02/17 18:59 83 18 97 Room Air 09/02/17 18:20 98.2 126 20 111/83 98 Room Air 09/02/17 15:57 98.1 108 20 111/89 98 Room Air 09/02/17 15:43 Room Air 09/02/17 12:32 97.7 18 132/91 98 Room Air 09/02/17 11:35 109 18 100 Room Air 09/02/17 11:30 99 16 96 Room Air 21 09/02/17 09:00 104 122/78 09/02/17 08:00 98.2 104 18 122/78 94 Room Air 09/02/17 06:55 108 18 100 Room Air 09/02/17 06:50 90 16 96 Room Air 09/02/17 05:31 97.7 09/02/17 05:03 131/85 09/02/17 04:00 97.7 134 20 131/85 98 Room Air 09/02/17 03:45 92 20 99 Room Air 09/02/17 03:30 89 16 97 Room Air 09/02/17 00:00 98.2 112 20 108/78 100 Room Air 09/01/17 23:33 87 18 99 Room Air 09/01/17 23:33 82 18 95 Room Air 21 Intake and Output 09/02/17 09/03/17 19:00 07:00 Intake Total 500 ml Balance 500 ml Intake Oral 500 ml Laboratory Tests 09/02/17 13:30: White Blood Count 5.2, Red Blood Count 2.33L, Hemoglobin 7.7L, Hematocrit 24.3L , Mean Corpuscular Volume 104H, Mean Corpuscular Hemoglobin 32.9H, Mean Corpuscular Hemoglobin Concent 31.6L, Red Cell Distribution Width 18.0H, Platelet Count 144L, Mean Platelet Volume 6.6, Neutrophils (%) (Auto) , Lymphocytes (%) (Auto) , Monocytes (%) (Auto) , Eosinophils (%) (Auto) , Basophils (%) (Auto) , Differential Total Cells Counted 100, Neutrophils % ( Manual) 80H, Lymphocytes % (Manual) 10L, Monocytes % (Manual) 4, Eosinophils % ( Manual) 6H, Basophils % (Manual) 0, Band Neutrophils 0, Platelet Estimate DecreasedL, Platelet Morphology Normal, Hypochromasia 1+, Anisocytosis 1+, Macrocytosis 1+ Height (Feet): 5 Height (Inches): 5.00 Weight (Pounds): 139 General Appearance: no apparent distress, alert Neurologic: alert, oriented x 3, responsive, depressed affect Elva Car M.D. Sep 02, 2017 23:11
--- NOTE | 2017-09-02 23:25 | Cardiology Progress Note ---
Assessment/Plan Assessment/Plan 1. Atypical chest pain during HD, AMI is ruled out, echo reveals normal LV function, non-ischemic nuclear stress test at outside hospital in Dec 2016. Refused stress test this admission. 2. Hx of CAD, s/p PCI, continue ASA and statins. 3. Atrial fibrillation with RVR likely hypovolemia following HD, continue Eliquis and carvedilol, increase cardizem to 360mg daily. 4. Hx of HTN, stage II, continue clonidine, coreg and cardizem. 5. Severe pulmonary HTN, likely due to ESRD. Subjective Subjective No cardiac events. Nurse reported increased heart rate, 12 lead ECG reveals atrila fibrillation with RVR. Objective Last 24 Hour Vital Signs Date Time Temp Pulse Resp B/P (MAP) Pulse Ox O2 Delivery O2 Flow Rate FiO2 09/02/17 23:17 Room Air 09/02/17 23:17 Room Air 09/02/17 21:45 128/77 09/02/17 20:37 70 128/77 09/02/17 20:26 97.9 70 18 128/77 98 Room Air 09/02/17 19:11 95 18 100 Room Air 09/02/17 18:59 83 18 97 Room Air 09/02/17 18:20 98.2 126 20 111/83 98 Room Air 09/02/17 15:57 98.1 108 20 111/89 98 Room Air 09/02/17 15:43 Room Air 09/02/17 12:32 97.7 18 132/91 98 Room Air 09/02/17 11:35 109 18 100 Room Air 09/02/17 11:30 99 16 96 Room Air 09/02/17 09:00 104 122/78 09/02/17 08:00 98.2 104 18 122/78 94 Room Air 09/02/17 06:55 108 18 100 Room Air 09/02/17 06:50 90 16 96 Room Air 09/02/17 05:31 97.7 09/02/17 05:03 131/85 09/02/17 04:00 97.7 134 20 131/85 98 Room Air 09/02/17 03:45 92 20 99 Room Air 09/02/17 03:30 89 16 97 Room Air 09/02/17 00:00 98.2 112 20 108/78 100 Room Air 09/01/17 23:33 87 18 99 Room Air 21 09/01/17 23:33 82 18 95 Room Air 21 Intake and Output 09/02/17 09/03/17 19:00 07:00 Intake Total 500 ml Balance 500 ml Intake Oral 500 ml 2D Echo: LVEF 55%, RVSP 60 mmHg s/w severe pulmonary HTN. Laboratory Tests Test 09/02/17 13:30 White Blood Count 5.2 K/UL (4.8-10.8) Red Blood Count 2.33 M/UL (4.20-5.40) L Hemoglobin 7.7 G/DL (12.0-16.0) L Hematocrit 24.3 % (37.0-47.0) L Mean Corpuscular Volume 104 FL (80-99) H Mean Corpuscular Hemoglobin 32.9 PG (27.0-31.0) H Mean Corpuscular Hemoglobin Concent 31.6 G/DL (32.0-36.0) L Red Cell Distribution Width 18.0 % (11.6-14.8) H Platelet Count 144 K/UL (150-450) L Mean Platelet Volume 6.6 FL (6.5-10.1) Neutrophils (%) (Auto) % (45.0-75.0) Lymphocytes (%) (Auto) % (20.0-45.0) Monocytes (%) (Auto) % (1.0-10.0) Eosinophils (%) (Auto) % (0.0-3.0) Basophils (%) (Auto) % (0.0-2.0) Differential Total Cells Counted 100 Neutrophils % (Manual) 80 % (45-75) H Lymphocytes % (Manual) 10 % (20-45) L Monocytes % (Manual) 4 % (1-10) Eosinophils % (Manual) 6 % (0-3) H Basophils % (Manual) 0 % (0-2) Band Neutrophils 0 % (0-8) Platelet Estimate Decreased L Platelet Morphology Normal Hypochromasia 1+ Anisocytosis 1+ Macrocytosis 1+ Microbiology Date/Time Source Procedure Growth Status 09/01/17 00:00 Sputum Expectorated Gram Stain - Final Resulted 09/01/17 00:00 Sputum Expectorated Sputum Culture Pending Resulted Objective HEENT: PERRLA, EOMI, Anicteric , pale conjunctiva. NECK: No JVD, carotid upstroke 2+ B/L with o bruit LUNGS: Decreased breath sounds bilaterally. CVS: Normal S1S2, irregularly irregular, tachycardia, 2/6 MSM at LSB. ABDOMEN: Benign, NT/ND, + BS Ext: No evidence of edema, clubbing or cyanosis. ALVINO LIZARRAGA Sep 02, 2017 23:25
[2017-09-03] VITALS (13 sets, daily range): BP systolic 95–149; BP diastolic 46–110
[2017-09-03] MEDS: DiphenhydrAMINE 50mg/ml Inj IVP PRN ×3 (01:53→22:12)
--- NOTE | 2017-09-03 03:01 | Consultation ---
DATE OF CONSULTATION: 09/02/2017 ORTHOPEDIC CONSULTATION CONSULTING PHYSICIAN: Williams Parra M.D. REFERRING PHYSICIAN: Keven Scott M.D. CHIEF COMPLAINT: Right hip pain. HISTORY OF PRESENT ILLNESS: The patient is a 51-year-old female who approximately a month ago had a mechanical fall. She was diagnosed with displaced femoral neck fracture. She underwent a cemented total hip arthroplasty at [facility]. She was in a rehabilitation center and subsequently was readmitted for possible chest pain. Orthopedic consultation obtained for further care and recommendation of the right hip. The patient reports that she is still having pain in the right hip. She has been getting up along with physical therapy. She reports that her pain medication regimen has been changed and the fact that she is on Dilaudid, it is really causing a lot of discomfort and pain. PAST MEDICAL HISTORY: End-stage renal disease. PAST SURGICAL HISTORY: Significant recent total hip arthroplasty. MEDICATION: Reviewed from the intake chart. ALLERGIES: None. PHYSICAL EXAMINATION: GENERAL: The patient is somewhat lethargic and tired. She is resting comfortably in bed. VITAL SIGNS: Afebrile. Stable vital signs. SKIN: Intact. ABDOMEN: Soft. EXTREMITIES: Right hip examination shows a well-healed incision. Dorsalis pedis pulses +2. Posterior calf is soft. The patient does have weakness at the hip flexors. LABORATORY AND DIAGNOSTIC DATA: Imaging studies showed cemented total hip arthroplasty in good position. ASSESSMENT: Status post right total hip arthroplasty and femoral neck fracture. DISCUSSION: At this point, she is doing relatively well. What I recommend is for her to continue with physical therapy. Weightbearing as tolerated. The implant looks good. There is no evidence of infection. At this point, in terms of her more chronic pain issues, it is a little bit more complex. Recommend to get a pain management consultation if needed. Williams Parra M.D. DR: JANETH JOB#: [id number] CC: [id number]
[2017-09-03] MEDS: Albuterol/Ipratropium 3ml neb HHN SCH ×4 (03:12→15:40)
--- NOTE | 2017-09-03 08:29 | General Progress Note ---
Assessment/Plan Assessment/Plan (1) Right hip pain (2) Right hip Fx s/p ORIF (3) Cervical DDD (4) Cervical Spondylosis (5) Cervical Radiculopathy (6) H/o Cervical surgery Pt to be continued on the Dilaudid increased to 2mg tabs and Percocet. An Rx for Percocet 10/325mg and Dilaudid 2mg tabs was written for patient in anticipation of discharge. D/w Dr. Stockton and he concurred. Subjective Date patient seen: Sep 03, 2017 Time patient seen: 07:00 - am Allergies: Coded Allergies: No Known Allergies (Unverified , 02/26/16) Subjective REVIEW OF SYSTEMS: She denies rash, fever, chills, sweating, dizziness, drowsiness, blurred vision, sore throat, or change in weight. No shortness of breath or chest pain. No nausea, vomiting, diarrhea, or blood in the stool or urine. No bowel or bladder incontinence. No dysuria. She is complaining of right hip and neck pain. SUBJECTIVE: Patient continues to c/o pain which at times is severe. She is using the Percocet as needed. Patient has requested new ripsaw grader and has not had relief on the Dilaudid 0.5mg tabs we will increase back to 2mg tabs. Objective Last 24 Hour Vital Signs Date Time Temp Pulse Resp B/P (MAP) Pulse Ox O2 Delivery O2 Flow Rate FiO2 09/03/17 08:19 Room Air 09/03/17 08:19 Room Air 09/03/17 08:15 97.9 109 21 149/84 97 Room Air 09/03/17 07:27 147/100 09/03/17 04:00 98.1 123 20 147/100 98 Room Air 09/03/17 03:22 91 18 98 Room Air 09/03/17 03:12 88 18 96 Room Air 09/03/17 00:00 97.7 118 20 144/94 100 Room Air 09/02/17 23:17 Room Air 09/02/17 23:17 Room Air 09/02/17 21:45 128/77 09/02/17 20:37 70 128/77 09/02/17 20:26 97.9 70 18 128/77 98 Room Air 09/02/17 19:11 95 18 100 Room Air 09/02/17 18:59 83 18 97 Room Air 09/02/17 18:20 98.2 126 20 111/83 98 Room Air 09/02/17 15:57 98.1 108 20 111/89 98 Room Air 09/02/17 15:43 Room Air 09/02/17 12:32 97.7 18 132/91 98 Room Air 09/02/17 11:35 109 18 100 Room Air 09/02/17 11:30 99 16 96 Room Air 09/02/17 09:00 104 122/78 Laboratory Tests 09/02/17 13:30: White Blood Count 5.2, Red Blood Count 2.33L, Hemoglobin 7.7L, Hematocrit 24.3L , Mean Corpuscular Volume 104H, Mean Corpuscular Hemoglobin 32.9H, Mean Corpuscular Hemoglobin Concent 31.6L, Red Cell Distribution Width 18.0H, Platelet Count 144L, Mean Platelet Volume 6.6, Neutrophils (%) (Auto) , Lymphocytes (%) (Auto) , Monocytes (%) (Auto) , Eosinophils (%) (Auto) , Basophils (%) (Auto) , Differential Total Cells Counted 100, Neutrophils % ( Manual) 80H, Lymphocytes % (Manual) 10L, Monocytes % (Manual) 4, Eosinophils % ( Manual) 6H, Basophils % (Manual) 0, Band Neutrophils 0, Platelet Estimate DecreasedL, Platelet Morphology Normal, Hypochromasia 1+, Anisocytosis 1+, Macrocytosis 1+ Height (Feet): 5 Height (Inches): 5.00 Weight (Pounds): 139 Objective GENERAL: Alert, awake, and oriented. HEENT: PERRLA. NECK: Range of motion is decreased due to the patient's condition with tenderness as well as adenopathy with surgical scar noted in the midline of the posterior cervical area. LUNGS: Decreased breath sounds bilaterally. ABDOMEN: Benign. BACK: Range of motion is decreased in flexion and extension. EXTREMITIES: No cyanosis. No clubbing. NEUROLOGICAL: No changes. Procedure: XRAY Hip Routine 2v+ R Indications: hip pain Findings: Cemented total hip arthroplasty demonstrated. No malalignment or definite acute fracture is identified. The bones are severely osteopenic. DAIJA FERRARI Sep 03, 2017 08:29
[2017-09-03] MEDS: DULoxetine 30mg cap ORAL SCH (08:52)
[2017-09-03] MEDS: dilTIAZem HCl CD 180mg cap ORAL SCH (08:53)
[2017-09-03] MEDS: Carvedilol 25mg Tab ORAL SCH ×2 (08:53→21:00)
[2017-09-03] MEDS: Eliquis 2.5mg tablet ORAL SCH ×2 (08:53→18:00)
[2017-09-03] MEDS: Docusate 100mg cap ORAL SCH ×3 (08:53→18:00)
--- NOTE | 2017-09-03 09:10 | General Progress Note ---
Progress Note Progress Note [id number] full note dictated CORDELIA HIGUERA Sep 03, 2017 09:10
--- NOTE | 2017-09-03 12:34 | General Progress Note ---
Assessment/Plan Assessment/Plan IMPRESSION/PLAN: # Thrombocytopenia, not critically low. ok to monitor for now. Improving 1. Anemia of kidney disease. Nephrology service following --> Hgb goal above 7. S/p multiple transfusions. To receive additional transfusion. Continue to watch counts 2. Anemia of chronic disease. No evidence of iron deficiency 3. End-stage renal disease, hemodialysis dependent. 4. Coronary artery disease. 5. Hypertension. 6. Congestive heart failure. Subjective Allergies: Coded Allergies: No Known Allergies (Unverified , 02/26/16) All Systems: reviewed and negative except above Subjective having blood transfusion Objective Last 24 Hour Vital Signs Date Time Temp Pulse Resp B/P (MAP) Pulse Ox O2 Delivery O2 Flow Rate FiO2 09/03/17 11:46 Room Air 09/03/17 11:46 128 18 94 Room Air 09/03/17 09:55 97.7 149 20 123/106 99 Room Air 09/03/17 09:38 97.5 153 21 138/110 98 Room Air 09/03/17 08:53 109 149/84 09/03/17 08:53 109 149/84 09/03/17 08:19 Room Air 21 09/03/17 08:19 Room Air 21 09/03/17 08:15 97.9 109 21 149/84 97 Room Air 09/03/17 07:27 147/100 09/03/17 04:00 98.1 123 20 147/100 98 Room Air 09/03/17 03:22 91 18 98 Room Air 09/03/17 03:12 88 18 96 Room Air 09/03/17 00:00 97.7 118 20 144/94 100 Room Air 09/02/17 23:17 Room Air 21 09/02/17 23:17 Room Air 09/02/17 21:45 128/77 09/02/17 20:37 70 128/77 09/02/17 20:26 97.9 70 18 128/77 98 Room Air 09/02/17 19:11 95 18 100 Room Air 09/02/17 18:59 83 18 97 Room Air 21 09/02/17 18:20 98.2 126 20 111/83 98 Room Air 09/02/17 15:57 98.1 108 20 111/89 98 Room Air 09/02/17 15:43 Room Air 21 Intake and Output 09/03/17 09/04/17 19:00 07:00 Intake Total 240 ml Balance 240 ml Intake Oral 240 ml Laboratory Tests 09/02/17 13:30: White Blood Count 5.2, Red Blood Count 2.33L, Hemoglobin 7.7L, Hematocrit 24.3L , Mean Corpuscular Volume 104H, Mean Corpuscular Hemoglobin 32.9H, Mean Corpuscular Hemoglobin Concent 31.6L, Red Cell Distribution Width 18.0H, Platelet Count 144L, Mean Platelet Volume 6.6, Neutrophils (%) (Auto) , Lymphocytes (%) (Auto) , Monocytes (%) (Auto) , Eosinophils (%) (Auto) , Basophils (%) (Auto) , Differential Total Cells Counted 100, Neutrophils % ( Manual) 80H, Lymphocytes % (Manual) 10L, Monocytes % (Manual) 4, Eosinophils % ( Manual) 6H, Basophils % (Manual) 0, Band Neutrophils 0, Platelet Estimate DecreasedL, Platelet Morphology Normal, Hypochromasia 1+, Anisocytosis 1+, Macrocytosis 1+ Height (Feet): 5 Height (Inches): 5.00 Weight (Pounds): 139 General Appearance: no apparent distress EENT: normal ENT inspection Neck: normal alignment Cardiovascular: normal peripheral pulses Neurologic: roller leveler II-XII grossly normal Skin: warm/dry Lauri Macias Sep 03, 2017 12:34
--- NOTE | 2017-09-03 12:53 | Infectious Diseases Prog Note ---
Assessment/Plan Assessment/Plan A: 1. pneumonia 2. renal failure, ESRD 3. pulmonary hypertension P 1. continue Augmentin and Levaquin Subjective ROS Limited/Unobtainable: No HEENT: Reports: no symptoms Respiratory: Reports: productive cough Cardiovascular: Reports: dyspnea on exertion Gastrointestinal/Abdominal: Reports: no symptoms Genitourinary: Reports: no symptoms Allergies: Coded Allergies: No Known Allergies (Unverified , 02/26/16) Objective Vital Signs Last 24 Hour Vital Signs Date Time Temp Pulse Resp B/P (MAP) Pulse Ox O2 Delivery O2 Flow Rate FiO2 09/03/17 12:15 97.9 96 20 146/86 97 Room Air 09/03/17 11:46 Room Air 09/03/17 11:46 128 18 94 Room Air 09/03/17 09:55 97.7 149 20 123/106 99 Room Air 09/03/17 09:38 97.5 153 21 138/110 98 Room Air 09/03/17 08:53 109 149/84 09/03/17 08:53 109 149/84 09/03/17 08:19 Room Air 09/03/17 08:19 Room Air 09/03/17 08:15 97.9 109 21 149/84 97 Room Air 09/03/17 07:27 147/100 09/03/17 04:00 98.1 123 20 147/100 98 Room Air 09/03/17 03:22 91 18 98 Room Air 09/03/17 03:12 88 18 96 Room Air 09/03/17 00:00 97.7 118 20 144/94 100 Room Air 09/02/17 23:17 Room Air 09/02/17 23:17 Room Air 09/02/17 21:45 128/77 09/02/17 20:37 70 128/77 09/02/17 20:26 97.9 70 18 128/77 98 Room Air 09/02/17 19:11 95 18 100 Room Air 09/02/17 18:59 83 18 97 Room Air 09/02/17 18:20 98.2 126 20 111/83 98 Room Air 09/02/17 15:57 98.1 108 20 111/89 98 Room Air 09/02/17 15:43 Room Air Height (Feet): 5 Height (Inches): 5.00 Weight (Pounds): 139 General Appearance: no acute distress HEENT: mucous membranes moist Respiratory/Chest: lungs clear, other - O2 by cannula Cardiovascular: normal rate Abdomen: soft, non tender Extremities: no edema Neurologic/Psychiatric: alert, oriented x 3, responsive Microbiology Date/Time Source Procedure Growth Status 09/01/17 00:00 Sputum Expectorated Gram Stain - Final Complete 09/01/17 00:00 Sputum Expectorated Sputum Culture - Final NORMAL UPPER RESPIRATORY DEQUAN PRESENT Complete Laboratory Tests Test 09/02/17 13:30 White Blood Count 5.2 K/UL (4.8-10.8) Red Blood Count 2.33 M/UL (4.20-5.40) L Hemoglobin 7.7 G/DL (12.0-16.0) L Hematocrit 24.3 % (37.0-47.0) L Mean Corpuscular Volume 104 FL (80-99) H Mean Corpuscular Hemoglobin 32.9 PG (27.0-31.0) H Mean Corpuscular Hemoglobin Concent 31.6 G/DL (32.0-36.0) L Red Cell Distribution Width 18.0 % (11.6-14.8) H Platelet Count 144 K/UL (150-450) L Mean Platelet Volume 6.6 FL (6.5-10.1) Neutrophils (%) (Auto) % (45.0-75.0) Lymphocytes (%) (Auto) % (20.0-45.0) Monocytes (%) (Auto) % (1.0-10.0) Eosinophils (%) (Auto) % (0.0-3.0) Basophils (%) (Auto) % (0.0-2.0) Differential Total Cells Counted 100 Neutrophils % (Manual) 80 % (45-75) H Lymphocytes % (Manual) 10 % (20-45) L Monocytes % (Manual) 4 % (1-10) Eosinophils % (Manual) 6 % (0-3) H Basophils % (Manual) 0 % (0-2) Band Neutrophils 0 % (0-8) Platelet Estimate Decreased L Platelet Morphology Normal Hypochromasia 1+ Anisocytosis 1+ Macrocytosis 1+ Current Medications Medications (Trade) Dose Ordered Sig/Sneha Route PRN Reason Start Time Stop Time Status Last Admin Dose Admin Acetaminophen (Tylenol) 650 mg Q4H PRN ORAL Mild Pain/Temp > 100.5 08/29/17 21:00 09/28/17 20:59 Albuterol/ Ipratropium (Albuterol/ Ipratropium) 3 ml Q4HRT HHN 09/01/17 15:00 09/06/17 14:59 09/03/17 03:12 Amoxicillin/ Clavulanate Potassium (Augmentin) 500 mg QHS ORAL 09/02/17 21:00 09/09/17 20:59 09/02/17 20:33 Apixaban (Eliquis) 2.5 mg BID ORAL 08/30/17 09:00 09/22/17 12:59 09/03/17 08:53 Carvedilol (Coreg) 25 mg EVERY 12 HOURS ORAL 08/29/17 21:00 09/25/17 20:59 09/03/17 08:53 Chlorhexidine Gluconate (Rimma-Hex 2%) 1 applic DAILY@1999 TOPIC 08/30/17 20:00 09/29/17 19:59 09/02/17 20:33 Cinacalcet (Sensipar) 30 mg QHS ORAL 08/29/17 21:00 09/23/17 20:59 09/02/17 20:33 Clonidine HCl (Catapres) 0.1 mg EVERY 8 HOURS ORAL 08/29/17 22:00 09/22/17 17:59 09/03/17 07:27 Diltiazem HCl (Cardizem CD) 360 mg DAILY ORAL 09/03/17 09:00 10/03/17 08:59 09/03/17 08:53 Diphenhydramine HCl (Benadryl) 25 mg Q4H PRN IVP Itching 09/01/17 22:15 10/01/17 22:14 09/03/17 09:33 Docusate Sodium (Colace) 100 mg TID ORAL 08/30/17 09:00 09/22/17 17:59 09/03/17 08:53 Duloxetine HCl (Cymbalta) 30 mg DAILY ORAL 09/02/17 09:00 10/02/17 08:59 09/03/17 08:52 Epoetin Brayan (Procrit (for ESRD on dialysis)) 10,000 units THU-THU-THU SUBQ 08/31/17 21:00 09/23/17 20:59 09/02/17 21:42 Hydromorphone HCl (Dilaudid) 2 mg Q4H PRN ORAL Severe Pain (Pain Scale 7-10) 09/03/17 09:30 09/10/17 09:29 Levofloxacin (Levaquin) 250 mg QOD ORAL 09/02/17 12:00 09/09/17 11:59 09/02/17 14:31 Ondansetron HCl (Zofran) 4 mg Q6H PRN IVP Nausea & Vomiting 08/29/17 21:00 09/28/17 20:59 Sevelamer Carbonate (Renvela) 2,400 mg THREE TIMES A DAY ORAL 08/30/17 09:00 09/23/17 12:59 09/03/17 08:52 ALFONZO MOLINA Sep 03, 2017 12:53
--- NOTE | 2017-09-03 15:45 | Consultation ---
DATE OF CONSULTATION: 09/03/2017 NEPHROLOGY CONSULTATION CONSULTING PHYSICIAN: Edith Mansfield M.D. REFERRING PHYSICIAN: Keven Scott M.D. REASON FOR CONSULTATION: End-stage renal disease, need for dialysis and management of the AV fistula. HISTORY OF PRESENT ILLNESS: The patient is a 51-year-old female with past medical history significant for lung disease; history of end-stage renal disease; anemia of chronic kidney disease; renal osteodystrophy; hypertension; receiving dialysis Thursday, , and Thursday. The patient also has a history of atrial fibrillation, on Coumadin; history of the cervical laminectomy; and history of CAD. The patient has multiple admissions including admission for chest pain and recent admission on 07/22/2017. She had a history of mechanical fall and broken hip on her right side. She was admitted on 08/24/2017 about 10 days ago for chest pain, was seen originally by Dr. Miles, and I was asked for a second opinion on this case. Currently, the patient is alert, awake. She is still complaining of severe pain. She has severe pain on her right hip. She denies having any chest pain. She is receiving dialysis via a PermCath on her right groin, which apparently functioning well. PAST MEDICAL HISTORY: 1. End-stage renal disease. 2. Anemia of chronic kidney disease. 3. Renal osteodystrophy. 4. Hypertension. 5. CAD. 6. History of cervical spine laminectomy. 7. History of right hip replacement. PAST SURGICAL HISTORY: 1. History of AV fistula. 2. History of laminectomy. 3. History of PermCath placement. 4. History of total hip replacement on her right side. MEDICATIONS: Medication reconciliation was reviewed. ALLERGIES: Not known drug allergies. SOCIAL HISTORY: Denies any history of tobacco, alcohol, or drug use. She claims she has 2 kids at home. FAMILY HISTORY: Noncontributory. REVIEW OF SYSTEMS: GENERAL: She denies any weight loss, weight gain, fever, chills, or night sweats. HEAD AND NECK: Denies any dysphagia, odynophagia, blurry vision, headache, or neck stiffness. PULMONARY: No shortness of breath. No cough or sputum. CARDIOVASCULAR: Denies any chest pain or palpitation. GASTROINTESTINAL: Denies any nausea, vomiting, diarrhea, hematemesis, or hematochezia. GENITOURINARY: Denies any dysuria, frequency, or hematuria. MUSCULOSKELETAL: Complained of right hip pain. PHYSICAL EXAMINATION: VITAL SIGNS: The patient had temperature of 98 degrees, blood pressure of 150/90, and pulse rate of 80. HEAD AND NECK: No JVP. No LAD. No thyromegaly. Extraocular movements intact. Pupils are reactive to light and accommodation. LUNGS: Clear to auscultation. CARDIAC: Regular rate and rhythm. S1, S2. No murmur. No rub. ABDOMEN: Soft, nontender, and nondistended. EXTREMITIES: No edema. No clubbing. No cyanosis. LABORATORY AND DIAGNOSTIC DATA: Laboratory values, the patient had WBC count of 5.2, hemoglobin of 7.7, hematocrit of 24, platelet count of 144. Chemistry revealed sodium of 133, potassium 4.4, 98 chloride, 34 bicarbonate, BUN of 53, creatinine of 5.8, calcium of 9.3, phosphorus is 5.8. ASSESSMENT: 1. End-stage renal disease. 2. Anemia of chronic kidney disease. 3. History of osteodystrophy. 4. Malfunctioning arteriovenous fistula. 5. Receiving dialysis from [facility] from her right groin. PLAN: Plan for the patient is to receive dialysis in the a.m. We would increase the Epogen. We will check iron panel. I would consider rechecking the phosphorus, check the PTH, and monitor electrolytes and hemoglobin closely. Edith Mansfield M.D. DR: KOBI JOB#: [id number] CC:
--- NOTE | 2017-09-03 16:14 | Pulmonology Progress Note ---
Assessment/Plan Assessment/Plan 1. Acute bronchitis 2. End-stage renal disease. 3. Hypertensive heart disease. 4. Atrial fibrillation. 5. Anemia of renal disease. high HR at times will dc HHN Augmentin alone is sufficient anemia, for transfusion dc planning Subjective HEENT: Denies: congestion Respiratory: Denies: productive cough, shortness of breath Allergies: Coded Allergies: No Known Allergies (Unverified , 02/26/16) Objective Last 24 Hour Vital Signs Date Time Temp Pulse Resp B/P (MAP) Pulse Ox O2 Delivery O2 Flow Rate FiO2 09/03/17 15:40 137 18 96 Room Air 09/03/17 15:40 Room Air 09/03/17 12:15 97.9 96 20 146/86 97 Room Air 09/03/17 11:46 Room Air 09/03/17 11:46 128 18 94 Room Air 09/03/17 11:45 98.2 134 20 125/92 98 Room Air 09/03/17 09:55 97.7 149 20 123/106 99 Room Air 09/03/17 09:54 97.9 09/03/17 09:38 97.5 153 21 138/110 98 Room Air 09/03/17 08:53 109 149/84 09/03/17 08:53 109 149/84 09/03/17 08:19 Room Air 09/03/17 08:19 Room Air 09/03/17 08:15 97.9 109 21 149/84 97 Room Air 09/03/17 07:27 147/100 09/03/17 04:00 98.1 123 20 147/100 98 Room Air 09/03/17 03:22 91 18 98 Room Air 09/03/17 03:12 88 18 96 Room Air 09/03/17 00:00 97.7 118 20 144/94 100 Room Air 09/02/17 23:17 Room Air 09/02/17 23:17 Room Air 09/02/17 21:45 128/77 09/02/17 20:37 70 128/77 09/02/17 20:26 97.9 70 18 128/77 98 Room Air 09/02/17 19:11 95 18 100 Room Air 09/02/17 18:59 83 18 97 Room Air 09/02/17 18:20 98.2 126 20 111/83 98 Room Air Intake and Output 09/03/17 09/04/17 19:00 07:00 Intake Total 240 ml Balance 240 ml Intake Oral 240 ml General Appearance: no acute distress HEENT: atraumatic Respiratory/Chest: rhonchi Cardiovascular: normal rate Microbiology Date/Time Source Procedure Growth Status 09/01/17 00:00 Sputum Expectorated Gram Stain - Final Complete 09/01/17 00:00 Sputum Expectorated Sputum Culture - Final NORMAL UPPER RESPIRATORY DEQUAN PRESENT Complete Current Medications Medications (Trade) Dose Ordered Sig/Sneha Route PRN Reason Start Time Stop Time Status Last Admin Dose Admin Acetaminophen (Tylenol) 650 mg Q4H PRN ORAL Mild Pain/Temp > 100.5 08/29/17 21:00 09/28/17 20:59 Albuterol/ Ipratropium (Albuterol/ Ipratropium) 3 ml Q4HRT HHN 09/01/17 15:00 09/06/17 14:59 09/03/17 03:12 Amoxicillin/ Clavulanate Potassium (Augmentin) 500 mg QHS ORAL 09/02/17 21:00 09/09/17 20:59 09/02/17 20:33 Apixaban (Eliquis) 2.5 mg BID ORAL 08/30/17 09:00 09/22/17 12:59 09/03/17 08:53 Carvedilol (Coreg) 25 mg EVERY 12 HOURS ORAL 08/29/17 21:00 09/25/17 20:59 09/03/17 08:53 Chlorhexidine Gluconate (Rimma-Hex 2%) 1 applic DAILY@2000 TOPIC 08/30/17 20:00 09/29/17 19:59 09/02/17 20:33 Cinacalcet (Sensipar) 30 mg QHS ORAL 08/29/17 21:00 09/23/17 20:59 09/02/17 20:33 Clonidine HCl (Catapres) 0.1 mg EVERY 8 HOURS ORAL 08/29/17 22:00 09/22/17 17:59 09/03/17 07:27 Diltiazem HCl (Cardizem CD) 360 mg DAILY ORAL 09/03/17 09:00 10/03/17 08:59 09/03/17 08:53 Diphenhydramine HCl (Benadryl) 25 mg Q4H PRN IVP Itching 09/01/17 22:15 10/01/17 22:14 09/03/17 09:33 Docusate Sodium (Colace) 100 mg TID ORAL 08/30/17 09:00 09/22/17 17:59 09/03/17 08:53 Duloxetine HCl (Cymbalta) 30 mg DAILY ORAL 09/02/17 09:00 10/02/17 08:59 09/03/17 08:52 Epoetin Brayan (Procrit (for ESRD on dialysis)) 10,000 units THU- SUBQ 08/31/17 21:00 09/23/17 20:59 09/02/17 21:42 Hydromorphone HCl (Dilaudid) 2 mg Q4H PRN ORAL Severe Pain (Pain Scale 7-10) 09/03/17 09:30 09/10/17 09:29 Levofloxacin (Levaquin) 250 mg QOD ORAL 09/02/17 12:00 09/09/17 11:59 09/02/17 14:31 Ondansetron HCl (Zofran) 4 mg Q6H PRN IVP Nausea & Vomiting 08/29/17 21:00 09/28/17 20:59 Sevelamer Carbonate (Renvela) 2,400 mg THREE TIMES A DAY ORAL 08/30/17 09:00 09/23/17 12:59 09/03/17 08:52 LA DOS SANTOS Sep 03, 2017 16:14
--- NOTE | 2017-09-03 20:45 | General Progress Note ---
Assessment/Plan Problem List: (1) Chest pain ICD Codes: R07.9 - Chest pain, unspecified SNOMED: 87369778 (2) Cervical radiculopathy ICD Codes: M54.12 - Radiculopathy, cervical region SNOMED: 27898504 (3) ACS (acute coronary syndrome) ICD Codes: I24.9 - Acute ischemic heart disease, unspecified SNOMED: 419795864 (4) Cardiomegaly ICD Codes: I51.7 - Cardiomegaly SNOMED: 5068414 (5) ESRD (end stage renal disease) ICD Codes: N18.6 - End stage renal disease SNOMED: 96029579 (6) Pleural effusion, left ICD Codes: J90 - Pleural effusion, not elsewhere classified SNOMED: 59564772 Status: progressing Assessment/Plan clotted hd fistula is repaired htn afebrile edema no bleeding hyperkalemia pvd chronic pain esrd on hd femoral cath anemia hip Subjective ROS Limited/Unobtainable: Yes Allergies: Coded Allergies: No Known Allergies (Unverified , 02/26/16) Subjective hip pain Objective Last 24 Hour Vital Signs Date Time Temp Pulse Resp B/P (MAP) Pulse Ox O2 Delivery O2 Flow Rate FiO2 09/03/17 17:44 75 98/74 09/03/17 17:15 75 95/46 09/03/17 16:56 97.7 57 18 95/52 100 Room Air 09/03/17 16:45 61 18 97/50 100 Room Air 09/03/17 16:00 98.3 94 18 144/85 98 Room Air 09/03/17 15:40 137 18 96 Room Air 09/03/17 15:40 Room Air 09/03/17 14:00 95/52 09/03/17 12:15 97.9 96 20 146/86 97 Room Air 09/03/17 11:46 Room Air 09/03/17 11:46 128 18 94 Room Air 09/03/17 11:45 98.2 134 20 125/92 98 Room Air 09/03/17 09:55 97.7 149 20 123/106 99 Room Air 09/03/17 09:54 97.9 09/03/17 09:38 97.5 153 21 138/110 98 Room Air 09/03/17 08:53 109 149/84 09/03/17 08:53 109 149/84 09/03/17 08:19 Room Air 21 09/03/17 08:19 Room Air 21 09/03/17 08:15 97.9 109 21 149/84 97 Room Air 09/03/17 07:27 147/100 09/03/17 04:00 98.1 123 20 147/100 98 Room Air 09/03/17 03:22 91 18 98 Room Air 09/03/17 03:12 88 18 96 Room Air 09/03/17 00:00 97.7 118 20 144/94 100 Room Air 09/02/17 23:17 Room Air 21 09/02/17 23:17 Room Air 09/02/17 21:45 128/77 Intake and Output 09/03/17 09/04/17 19:00 07:00 Intake Total 600 ml Balance 600 ml Intake Oral 600 ml # Voids 1 Height (Feet): 5 Height (Inches): 5.00 Weight (Pounds): 139 EENT: PERRL/Keven Lawrence MD Sep 03, 2017 20:45
[2017-09-03] MEDS: Sensipar 30mg Tab ORAL SCH (22:12)
[2017-09-03] MEDS: HYDROmorphone 2mg tab ORAL PRN (22:13)
[2017-09-03] MEDS: Dyna-Hex 2% Top Sol 2oz TOPIC SCH (22:14)
--- NOTE | 2017-09-03 23:55 | Cardiology Progress Note ---
Subjective Subjective No cardiac events. Had an episode of hypotension. Objective Last 24 Hour Vital Signs Date Time Temp Pulse Resp B/P (MAP) Pulse Ox O2 Delivery O2 Flow Rate FiO2 09/03/17 22:00 133/70 09/03/17 21:00 72 133/70 09/03/17 17:44 75 98/74 09/03/17 17:15 75 95/46 09/03/17 16:56 97.7 57 18 95/52 100 Room Air 09/03/17 16:45 61 18 97/50 100 Room Air 09/03/17 16:00 98.3 94 18 144/85 98 Room Air 09/03/17 15:40 137 18 96 Room Air 21 09/03/17 15:40 Room Air 21 09/03/17 14:00 95/52 09/03/17 12:15 97.9 96 20 146/86 97 Room Air 09/03/17 11:46 Room Air 21 09/03/17 11:46 128 18 94 Room Air 21 09/03/17 11:45 98.2 134 20 125/92 98 Room Air 09/03/17 09:55 97.7 149 20 123/106 99 Room Air 09/03/17 09:54 97.9 09/03/17 09:38 97.5 153 21 138/110 98 Room Air 09/03/17 08:53 109 149/84 09/03/17 08:53 109 149/84 09/03/17 08:19 Room Air 21 09/03/17 08:19 Room Air 21 09/03/17 08:15 97.9 109 21 149/84 97 Room Air 09/03/17 07:27 147/100 09/03/17 04:00 98.1 123 20 147/100 98 Room Air 09/03/17 03:22 91 18 98 Room Air 09/03/17 03:12 88 18 96 Room Air 21 09/03/17 00:00 97.7 118 20 144/94 100 Room Air Intake and Output 09/03/17 09/04/17 19:00 07:00 Intake Total 600 ml Balance 600 ml Intake Oral 600 ml # Voids 1 2D Echo: LVEF 55%, RVSP 60 mmHg s/w severe pulmonary HTN. Microbiology Date/Time Source Procedure Growth Status 09/01/17 00:00 Sputum Expectorated Gram Stain - Final Complete 09/01/17 00:00 Sputum Expectorated Sputum Culture - Final NORMAL UPPER RESPIRATORY DEQUAN PRESENT Complete Objective HEENT: PERRLA, EOMI, Anicteric , pale conjunctiva. NECK: No JVD, carotid upstroke 2+ B/L with o bruit LUNGS: Decreased breath sounds bilaterally. CVS: Normal S1S2, irregularly irregular, tachycardia, 2/6 MSM at LSB. ABDOMEN: Benign, NT/ND, + BS Ext: No evidence of edema, clubbing or cyanosis. ALVINO LIZARRAGA Sep 03, 2017 23:55
[2017-09-04] VITALS (9 sets, daily range): BP systolic 92–150; BP diastolic 41–108
[2017-09-04] MEDS: DiphenhydrAMINE 50mg/ml Inj IVP PRN ×3 (02:40→21:44)
[2017-09-04] MEDS: HYDROmorphone 2mg tab ORAL PRN ×3 (02:41→17:11)
--- NOTE | 2017-09-04 08:27 | General Progress Note ---
Assessment/Plan Assessment/Plan (1) Right hip pain (2) Right hip Fx s/p ORIF (3) Cervical DDD (4) Cervical Spondylosis (5) Cervical Radiculopathy (6) H/o Cervical surgery Pt to be continued on the Dilaudid and Percocet. D/w Dr. Stockton and he concurred. Subjective Date patient seen: Sep 04, 2017 Time patient seen: 07:00 - am Allergies: Coded Allergies: No Known Allergies (Unverified , 02/26/16) Subjective REVIEW OF SYSTEMS: She denies rash, fever, chills, sweating, dizziness, drowsiness, blurred vision, sore throat, or change in weight. No shortness of breath or chest pain. No nausea, vomiting, diarrhea, or blood in the stool or urine. No bowel or bladder incontinence. No dysuria. She is complaining of right hip and neck pain. SUBJECTIVE: Patient is in bed and reports doing PT. The pain has been severe with movement and tolerated on the Dilaudid and Percocet regimen using them as needed. Objective Last 24 Hour Vital Signs Date Time Temp Pulse Resp B/P (MAP) Pulse Ox O2 Delivery O2 Flow Rate FiO2 09/04/17 06:00 133/83 09/04/17 04:00 98.1 67 20 133/83 100 Room Air 09/04/17 00:00 98.2 101 19 140/99 100 Room Air 09/03/17 22:00 133/70 09/03/17 21:00 72 133/70 09/03/17 20:00 98.4 72 19 133/70 96 Room Air 09/03/17 17:44 75 98/74 09/03/17 17:15 75 95/46 09/03/17 16:56 97.7 57 18 95/52 100 Room Air 09/03/17 16:45 61 18 97/50 100 Room Air 09/03/17 16:00 98.3 94 18 144/85 98 Room Air 09/03/17 15:40 137 18 96 Room Air 09/03/17 15:40 Room Air 09/03/17 14:00 95/52 09/03/17 12:15 97.9 96 20 146/86 97 Room Air 09/03/17 11:46 Room Air 09/03/17 11:46 128 18 94 Room Air 21 09/03/17 11:45 98.2 134 20 125/92 98 Room Air 09/03/17 09:55 97.7 149 20 123/106 99 Room Air 09/03/17 09:54 97.9 09/03/17 09:38 97.5 153 21 138/110 98 Room Air 09/03/17 08:53 109 149/84 09/03/17 08:53 109 149/84 Height (Feet): 5 Height (Inches): 5.00 Weight (Pounds): 139 Objective GENERAL: Alert, awake, and oriented. HEENT: PERRLA. NECK: Range of motion is decreased due to the patient's condition with tenderness as well as adenopathy with surgical scar noted in the midline of the posterior cervical area. LUNGS: Decreased breath sounds bilaterally. ABDOMEN: Benign. BACK: Range of motion is decreased in flexion and extension. EXTREMITIES: No cyanosis. No clubbing. NEUROLOGICAL: No changes. Procedure: XRAY Hip Routine 2v+ R Indications: hip pain Findings: Cemented total hip arthroplasty demonstrated. No malalignment or definite acute fracture is identified. The bones are severely osteopenic. DAIJA FERRARI Sep 04, 2017 08:27
[2017-09-04] MEDS: Docusate 100mg cap ORAL SCH ×3 (09:00→17:59)
[2017-09-04] MEDS: Carvedilol 25mg Tab ORAL SCH ×2 (09:00→21:43)
[2017-09-04] MEDS: DULoxetine 30mg cap ORAL SCH (09:00)
[2017-09-04] MEDS: Eliquis 2.5mg tablet ORAL SCH ×2 (09:00→17:59)
[2017-09-04] MEDS: dilTIAZem HCl CD 180mg cap ORAL SCH (09:00)
--- NOTE | 2017-09-04 09:38 | Pulmonology Progress Note ---
Assessment/Plan Assessment/Plan 1. Acute bronchitis 2. End-stage renal disease. 3. Hypertensive heart disease. 4. Atrial fibrillation. 5. Anemia of renal disease. no resp distress cont Augmentin dc planning Subjective Respiratory: Denies: productive cough, shortness of breath Allergies: Coded Allergies: No Known Allergies (Unverified , 02/26/16) Objective Last 24 Hour Vital Signs Date Time Temp Pulse Resp B/P (MAP) Pulse Ox O2 Delivery O2 Flow Rate FiO2 09/04/17 09:00 54 109/58 09/04/17 09:00 54 109/58 09/04/17 08:15 98.2 54 19 125/84 96 Room Air 09/04/17 06:00 133/83 09/04/17 04:00 98.1 67 20 133/83 100 Room Air 09/04/17 00:00 98.2 101 19 140/99 100 Room Air 09/03/17 22:00 133/70 09/03/17 21:00 72 133/70 09/03/17 20:00 98.4 72 19 133/70 96 Room Air 09/03/17 17:44 75 98/74 09/03/17 17:15 75 95/46 09/03/17 16:56 97.7 57 18 95/52 100 Room Air 09/03/17 16:45 61 18 97/50 100 Room Air 09/03/17 16:00 98.3 94 18 144/85 98 Room Air 09/03/17 15:40 137 18 96 Room Air 09/03/17 15:40 Room Air 09/03/17 14:00 95/52 09/03/17 12:15 97.9 96 20 146/86 97 Room Air 09/03/17 11:46 Room Air 21 09/03/17 11:46 128 18 94 Room Air 21 09/03/17 11:45 98.2 134 20 125/92 98 Room Air 09/03/17 09:55 97.7 149 20 123/106 99 Room Air 09/03/17 09:54 97.9 General Appearance: no acute distress Respiratory/Chest: lungs clear Cardiovascular: normal rate, irregularly irregular Current Medications Medications (Trade) Dose Ordered Sig/Sneha Route PRN Reason Start Time Stop Time Status Last Admin Dose Admin Acetaminophen (Tylenol) 650 mg Q4H PRN ORAL Mild Pain/Temp > 100.5 11/11/17 21:00 09/28/17 20:59 Amoxicillin/ Clavulanate Potassium (Augmentin) 500 mg QHS ORAL 09/02/17 21:00 09/09/17 20:59 09/03/17 22:13 Apixaban (Eliquis) 2.5 mg BID ORAL 08/30/17 09:00 09/22/17 12:59 09/03/17 08:53 Carvedilol (Coreg) 25 mg EVERY 12 HOURS ORAL 08/29/17 21:00 09/25/17 20:59 09/03/17 08:53 Chlorhexidine Gluconate (Rimma-Hex 2%) 1 applic DAILY@1999 TOPIC 08/30/17 20:00 09/29/17 19:59 09/03/17 22:14 Cinacalcet (Sensipar) 30 mg QHS ORAL 08/29/17 21:00 09/23/17 20:59 09/03/17 22:12 Clonidine HCl (Catapres) 0.1 mg EVERY 8 HOURS ORAL 08/29/17 22:00 09/22/17 17:59 09/03/17 07:27 Diltiazem HCl (Cardizem CD) 360 mg DAILY ORAL 09/03/17 09:00 10/03/17 08:59 09/03/17 08:53 Diphenhydramine HCl (Benadryl) 25 mg Q4H PRN IVP Itching 09/01/17 22:15 10/01/17 22:14 09/04/17 02:40 Docusate Sodium (Colace) 100 mg TID ORAL 08/30/17 09:00 09/22/17 17:59 09/03/17 08:53 Duloxetine HCl (Cymbalta) 30 mg DAILY ORAL 09/02/17 09:00 10/02/17 08:59 09/03/17 08:52 Epoetin Brayan (Procrit (for ESRD on dialysis)) 10,000 units THU-THU-THU SUBQ 08/31/17 21:00 09/23/17 20:59 09/02/17 21:42 Hydromorphone HCl (Dilaudid) 2 mg Q4H PRN ORAL Severe Pain (Pain Scale 7-10) 09/03/17 09:30 09/10/17 09:29 09/04/17 02:41 Ondansetron HCl (Zofran) 4 mg Q6H PRN IVP Nausea & Vomiting 08/29/17 21:00 09/28/17 20:59 Oxycodone/ Acetaminophen (Percocet 10/325) 1 tab Q4H PRN ORAL Moderate Pain (Pain Scale 4-6) 09/04/17 08:30 09/11/17 08:29 Sevelamer Carbonate (Renvela) 2,400 mg THREE TIMES A DAY ORAL 08/30/17 09:00 09/23/17 12:59 09/03/17 08:52 LA DOS SANTOS Sep 04, 2017 09:38
--- NOTE | 2017-09-04 12:11 | Infectious Diseases Prog Note ---
Assessment/Plan Assessment/Plan A: 1. pneumonia 2. renal failure, ESRD 3. pulmonary hypertension P 1. continue Augmentin Subjective ROS Limited/Unobtainable: Yes Allergies: Coded Allergies: No Known Allergies (Unverified , 02/26/16) Objective Vital Signs Last 24 Hour Vital Signs Date Time Temp Pulse Resp B/P (MAP) Pulse Ox O2 Delivery O2 Flow Rate FiO2 09/04/17 09:00 54 109/58 09/04/17 09:00 54 109/58 09/04/17 08:15 98.2 54 19 125/84 96 Room Air 09/04/17 06:00 133/83 09/04/17 04:00 98.1 67 20 133/83 100 Room Air 09/04/17 00:00 98.2 101 19 140/99 100 Room Air 09/03/17 22:00 133/70 09/03/17 21:00 72 133/70 09/03/17 20:00 98.4 72 19 133/70 96 Room Air 09/03/17 17:44 75 98/74 09/03/17 17:15 75 95/46 09/03/17 16:56 97.7 57 18 95/52 100 Room Air 09/03/17 16:45 61 18 97/50 100 Room Air 09/03/17 16:00 98.3 94 18 144/85 98 Room Air 09/03/17 15:40 137 18 96 Room Air 21 09/03/17 15:40 Room Air 21 09/03/17 14:00 95/52 09/03/17 12:15 97.9 96 20 146/86 97 Room Air Height (Feet): 5 Height (Inches): 5.00 Weight (Pounds): 139 HEENT: mucous membranes moist Respiratory/Chest: lungs clear, other - O2 by nasal cannula Cardiovascular: bradycardia Abdomen: soft, non tender Extremities: no edema Neurologic/Psychiatric: other - sleeping Current Medications Medications (Trade) Dose Ordered Sig/Sneha Route PRN Reason Start Time Stop Time Status Last Admin Dose Admin Acetaminophen (Tylenol) 650 mg Q4H PRN ORAL Mild Pain/Temp > 100.5 08/29/17 21:00 09/28/17 20:59 Amoxicillin/ Clavulanate Potassium (Augmentin) 500 mg QHS ORAL 09/02/17 21:00 09/09/17 20:59 09/03/17 22:13 Apixaban (Eliquis) 2.5 mg BID ORAL 08/30/17 09:00 09/22/17 12:59 09/03/17 08:53 Carvedilol (Coreg) 25 mg EVERY 12 HOURS ORAL 08/29/17 21:00 09/25/17 20:59 09/03/17 08:53 Chlorhexidine Gluconate (Rimma-Hex 2%) 1 applic DAILY@2000 TOPIC 08/30/17 20:00 09/29/17 19:59 09/03/17 22:14 Cinacalcet (Sensipar) 30 mg QHS ORAL 08/29/17 21:00 09/23/17 20:59 09/03/17 22:12 Clonidine HCl (Catapres) 0.1 mg EVERY 8 HOURS ORAL 08/29/17 22:00 09/22/17 17:59 09/03/17 07:27 Diltiazem HCl (Cardizem CD) 360 mg DAILY ORAL 09/03/17 09:00 10/03/17 08:59 09/03/17 08:53 Diphenhydramine HCl (Benadryl) 25 mg Q4H PRN IVP Itching 09/01/17 22:15 10/01/17 22:14 09/04/17 02:40 Docusate Sodium (Colace) 100 mg TID ORAL 08/30/17 09:00 09/22/17 17:59 09/03/17 08:53 Duloxetine HCl (Cymbalta) 30 mg DAILY ORAL 09/02/17 09:00 10/02/17 08:59 09/03/17 08:52 Epoetin Brayan (Procrit (for ESRD on dialysis)) 10,000 units THU-THU-THU SUBQ 08/31/17 21:00 09/23/17 20:59 09/02/17 21:42 Hydromorphone HCl (Dilaudid) 2 mg Q4H PRN ORAL Severe Pain (Pain Scale 7-10) 09/03/17 09:30 09/10/17 09:29 09/04/17 02:41 Ondansetron HCl (Zofran) 4 mg Q6H PRN IVP Nausea & Vomiting 08/29/17 21:00 09/28/17 20:59 Oxycodone/ Acetaminophen (Percocet 10/325) 1 tab Q4H PRN ORAL Moderate Pain (Pain Scale 4-6) 09/04/17 08:30 09/11/17 08:29 Sevelamer Carbonate (Renvela) 2,400 mg THREE TIMES A DAY ORAL 08/30/17 09:00 09/23/17 12:59 09/03/17 08:52 ALFONZO MOLINA Sep 04, 2017 12:11
--- NOTE | 2017-09-04 16:49 | General Progress Note ---
Assessment/Plan Assessment/Plan IMPRESSION/PLAN: # Thrombocytopenia, not critically low. ok to monitor for now. Improving 1. Anemia of kidney disease. Nephrology service following --> Hgb goal above 7. S/p multiple transfusions. To receive additional transfusion. Continue to watch counts 2. Anemia of chronic disease. No evidence of iron deficiency 3. End-stage renal disease, hemodialysis dependent. 4. Coronary artery disease. 5. Hypertension. 6. Congestive heart failure. Subjective Allergies: Coded Allergies: No Known Allergies (Unverified , 02/26/16) All Systems: reviewed and negative except above Subjective NAD, s.p blood transfusion Objective Last 24 Hour Vital Signs Date Time Temp Pulse Resp B/P (MAP) Pulse Ox O2 Delivery O2 Flow Rate FiO2 09/04/17 16:00 97.7 65 20 124/75 97 Room Air 09/04/17 14:00 92/41 09/04/17 12:15 98.0 52 20 92/41 97 Nasal Cannula 2.0 09/04/17 09:00 54 109/58 09/04/17 09:00 54 109/58 09/04/17 08:15 98.2 54 19 125/84 96 Room Air 09/04/17 06:00 133/83 09/04/17 04:00 98.1 67 20 133/83 100 Room Air 09/04/17 00:00 98.2 101 19 140/99 100 Room Air 09/03/17 22:00 133/70 09/03/17 21:00 72 133/70 09/03/17 20:00 98.4 72 19 133/70 96 Room Air 09/03/17 17:44 75 98/74 09/03/17 17:15 75 95/46 09/03/17 16:56 97.7 57 18 95/52 100 Room Air Height (Feet): 5 Height (Inches): 5.00 Weight (Pounds): 139 General Appearance: no apparent distress EENT: normal ENT inspection Neck: normal alignment Cardiovascular: normal peripheral pulses Respiratory/Chest: chest wall non-tender Abdomen: non tender Extremities: normal range of motion 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
--- NOTE | 2017-09-04 18:11 | Cardiology Progress Note ---
Assessment/Plan Assessment/Plan 1. Atypical chest pain, non-ischemic nuclear stress test at outside hospital in Dec 2016. Refused stress test this admission. Normal LVEF. 2. Hx of CAD, s/p PCI, continue ASA and statins. 3. Atrial fibrillation with controlled ventricular response, continue Eliquis, carvedilol and cardizem. 4. Hx of HTN, stage II, continue clonidine, coreg and cardizem. 5. Severe pulmonary HTN, likely due to ESRD. Subjective Subjective No cardiac events. Denies chest pain or SOB. Objective Last 24 Hour Vital Signs Date Time Temp Pulse Resp B/P (MAP) Pulse Ox O2 Delivery O2 Flow Rate FiO2 09/04/17 17:05 72 144/66 09/04/17 16:00 97.7 65 20 124/75 97 Room Air 09/04/17 14:00 92/41 09/04/17 12:15 98.0 52 20 92/41 97 Nasal Cannula 2.0 09/04/17 09:00 54 109/58 09/04/17 09:00 54 109/58 09/04/17 08:15 98.2 54 19 125/84 96 Room Air 09/04/17 06:00 133/83 09/04/17 04:00 98.1 67 20 133/83 100 Room Air 09/04/17 00:00 98.2 101 19 140/99 100 Room Air 09/03/17 22:00 133/70 09/03/17 21:00 72 133/70 09/03/17 20:00 98.4 72 19 133/70 96 Room Air 2D Echo: LVEF 55%, RVSP 60 mmHg s/w severe pulmonary HTN. Objective HEENT: PERRLA, EOMI, Anicteric , pale conjunctiva. NECK: No JVD, carotid upstroke 2+ B/L with o bruit LUNGS: Decreased breath sounds bilaterally. CVS: Normal S1S2, irregularly irregular, tachycardia, 2/6 MSM at LSB. ABDOMEN: Benign, NT/ND, + BS Ext: No evidence of edema, clubbing or cyanosis. ALVINO LIZARRAGA Sep 04, 2017 18:11
--- NOTE | 2017-09-04 18:17 | General Progress Note ---
Assessment/Plan Status: stable Assessment/Plan mdd cymblta 30mg qam Subjective Date patient seen: Sep 03, 2017 Neurologic/Psychiatric: Reports: anxiety, depressed, emotional problems Allergies: Coded Allergies: No Known Allergies (Unverified , 02/26/16) Objective Last 24 Hour Vital Signs Date Time Temp Pulse Resp B/P (MAP) Pulse Ox O2 Delivery O2 Flow Rate FiO2 09/04/17 17:05 72 144/66 09/04/17 16:00 97.7 65 20 124/75 97 Room Air 09/04/17 14:00 92/41 09/04/17 12:15 98.0 52 20 92/41 97 Nasal Cannula 2.0 09/04/17 09:00 54 109/58 09/04/17 09:00 54 109/58 09/04/17 08:15 98.2 54 19 125/84 96 Room Air 09/04/17 06:00 133/83 09/04/17 04:00 98.1 67 20 133/83 100 Room Air 09/04/17 00:00 98.2 101 19 140/99 100 Room Air 09/03/17 22:00 133/70 09/03/17 21:00 72 133/70 09/03/17 20:00 98.4 72 19 133/70 96 Room Air Height (Feet): 5 Height (Inches): 5.00 Weight (Pounds): 139 General Appearance: no apparent distress, alert Neurologic: alert, oriented x 3, responsive, depressed affect Elva Car M.D. Sep 04, 2017 18:17
--- NOTE | 2017-09-04 18:18 | General Progress Note ---
Assessment/Plan Status: stable, progressing Assessment/Plan mdd cymblta 30mg qam Subjective Date patient seen: Sep 04, 2017 Neurologic/Psychiatric: Reports: anxiety, depressed Allergies: Coded Allergies: No Known Allergies (Unverified , 02/26/16) Objective Last 24 Hour Vital Signs Date Time Temp Pulse Resp B/P (MAP) Pulse Ox O2 Delivery O2 Flow Rate FiO2 09/04/17 17:05 72 144/66 09/04/17 16:00 97.7 65 20 124/75 97 Room Air 09/04/17 14:00 92/41 09/04/17 12:15 98.0 52 20 92/41 97 Nasal Cannula 2.0 09/04/17 09:00 54 109/58 09/04/17 09:00 54 109/58 09/04/17 08:15 98.2 54 19 125/84 96 Room Air 09/04/17 06:00 133/83 09/04/17 04:00 98.1 67 20 133/83 100 Room Air 09/04/17 00:00 98.2 101 19 140/99 100 Room Air 09/03/17 22:00 133/70 09/03/17 21:00 72 133/70 09/03/17 20:00 98.4 72 19 133/70 96 Room Air Height (Feet): 5 Height (Inches): 5.00 Weight (Pounds): 139 General Appearance: no apparent distress, alert Neurologic: alert, oriented x 3, responsive, depressed affect Elva Car M.D. Sep 04, 2017 18:18
--- NOTE | 2017-09-04 20:58 | General Progress Note ---
Assessment/Plan Problem List: (1) Chest pain ICD Codes: R07.9 - Chest pain, unspecified SNOMED: 67997862 (2) Cervical radiculopathy ICD Codes: M54.12 - Radiculopathy, cervical region SNOMED: 06980403 (3) ACS (acute coronary syndrome) ICD Codes: I24.9 - Acute ischemic heart disease, unspecified SNOMED: 565844249 (4) Cardiomegaly ICD Codes: I51.7 - Cardiomegaly SNOMED: 1365885 (5) ESRD (end stage renal disease) ICD Codes: N18.6 - End stage renal disease SNOMED: 68798629 (6) Pleural effusion, left ICD Codes: J90 - Pleural effusion, not elsewhere classified SNOMED: 86594788 Status: progressing Assessment/Plan clotted hd fistula is repaired htn generilzed pain anemia of chronic disease hyperkalemia improved pvd chronic pain esrd on hd Subjective ROS Limited/Unobtainable: Yes Allergies: Coded Allergies: No Known Allergies (Unverified , 02/26/16) Subjective hip pain Objective Last 24 Hour Vital Signs Date Time Temp Pulse Resp B/P (MAP) Pulse Ox O2 Delivery O2 Flow Rate FiO2 09/04/17 19:18 98.1 102 20 150/108 94 Room Air 09/04/17 18:10 97.7 09/04/17 18:00 97.6 90 20 139/84 Room Air 09/04/17 18:00 Room Air 09/04/17 17:05 72 144/66 09/04/17 16:00 97.7 65 20 124/75 97 Room Air 09/04/17 14:00 Room Air 09/04/17 14:00 97.8 52 16 95/61 Room Air 09/04/17 14:00 92/41 09/04/17 12:15 98.0 52 20 92/41 97 Nasal Cannula 2.0 09/04/17 09:00 54 109/58 09/04/17 09:00 54 109/58 09/04/17 08:15 98.2 54 19 125/84 96 Room Air 09/04/17 06:00 133/83 09/04/17 04:00 98.1 67 20 133/83 100 Room Air 09/04/17 00:00 98.2 101 19 140/99 100 Room Air 09/03/17 22:00 133/70 09/03/17 21:00 72 133/70 Intake and Output 09/04/17 09/05/17 19:00 07:00 Intake Total 500 ml Output Total 1101 ml Balance -601 ml Intake Oral 500 ml Hemodialysis UF 1101 ml # Voids 2 Height (Feet): 5 Height (Inches): 5.00 Weight (Pounds): 139 Keven Scott MD Sep 04, 2017 20:58
[2017-09-04] MEDS ORDERED: Tubing IV Secondary IV ONE (21:08)
[2017-09-04] MEDS ORDERED: NS 275ml ONE (21:08)
[2017-09-04] MEDS ORDERED: Tubing Blood Filter IV ONE (21:08)
[2017-09-04] MEDS: Sensipar 30mg Tab ORAL SCH (21:43)
[2017-09-04] MEDS: Epogen (for ESRD on dialysis) SUBQ SCH (21:44)
[2017-09-04] MEDS: Dyna-Hex 2% Top Sol 2oz TOPIC SCH (21:45)
[2017-09-05] VITALS (7 sets, daily range): BP systolic 112–157; BP diastolic 69–118
[2017-09-05] MEDS: DiphenhydrAMINE 50mg/ml Inj IVP PRN ×3 (06:48→19:21)
[2017-09-05] MEDS: Eliquis 2.5mg tablet ORAL SCH ×3 (08:15→17:28)
[2017-09-05] MEDS: Docusate 100mg cap ORAL SCH ×3 (08:16→17:28)
[2017-09-05] MEDS: DULoxetine 30mg cap ORAL SCH (08:16)
[2017-09-05] MEDS: Carvedilol 25mg Tab ORAL SCH ×2 (08:16→20:42)
[2017-09-05] MEDS: dilTIAZem HCl CD 180mg cap ORAL SCH (08:17)
--- NOTE | 2017-09-05 10:38 | Infectious Diseases Prog Note ---
Assessment/Plan Assessment/Plan antibiotics : augmentin A 1. pneumonia 2. renal failure 3. pulmonary hypertension P 1. continue augmentin 2. will follow up cultures Subjective Constitutional: Denies: fever, chills Respiratory: Denies: shortness of breath, dry cough Gastrointestinal/Abdominal: Denies: nausea, vomiting, diarrhea Musculoskeletal: Reports: pain Allergies: Coded Allergies: No Known Allergies (Unverified , 02/26/16) Objective Vital Signs Last 24 Hour Vital Signs Date Time Temp Pulse Resp B/P (MAP) Pulse Ox O2 Delivery O2 Flow Rate FiO2 09/05/17 08:26 97.9 81 20 135/82 100 Room Air 09/05/17 08:17 93 151/100 09/05/17 08:16 93 151/100 09/05/17 06:49 151/100 09/05/17 00:00 98.2 93 21 157/118 97 Room Air 09/04/17 21:43 150/108 09/04/17 21:43 102 150/108 09/04/17 19:18 98.1 102 20 150/108 94 Room Air 09/04/17 18:10 97.7 09/04/17 18:00 97.6 90 20 139/84 Room Air 09/04/17 18:00 Room Air 09/04/17 17:05 72 144/66 09/04/17 16:00 97.7 65 20 124/75 97 Room Air 09/04/17 14:00 Room Air 09/04/17 14:00 97.8 52 16 95/61 Room Air 09/04/17 14:00 92/41 09/04/17 12:15 98.0 52 20 92/41 97 Nasal Cannula 2.0 Height (Feet): 5 Height (Inches): 5.00 Weight (Pounds): 140 Respiratory/Chest: lungs clear Cardiovascular: normal rate, regular rhythm, no gallop/murmur Abdomen: soft, non tender Extremities: other - + edema ENRICO GASTELUM Sep 05, 2017 10:38
[2017-09-05] MEDS: HYDROmorphone 2mg tab ORAL PRN ×2 (13:23→20:42)
--- NOTE | 2017-09-05 16:33 | General Progress Note ---
Assessment/Plan Problem List: (1) Chest pain ICD Codes: R07.9 - Chest pain, unspecified SNOMED: 39138648 (2) Cervical radiculopathy ICD Codes: M54.12 - Radiculopathy, cervical region SNOMED: 75326843 (3) ACS (acute coronary syndrome) ICD Codes: I24.9 - Acute ischemic heart disease, unspecified SNOMED: 595570406 (4) Cardiomegaly ICD Codes: I51.7 - Cardiomegaly SNOMED: 9567969 (5) ESRD (end stage renal disease) ICD Codes: N18.6 - End stage renal disease SNOMED: 26306846 (6) Pleural effusion, left ICD Codes: J90 - Pleural effusion, not elsewhere classified SNOMED: 67727746 Assessment/Plan clotted hd fistula is repaired no change hd per renal stable anemia of chronic disease hyperkalemia improved pvd chronic pain esrd on hd Subjective Allergies: Coded Allergies: No Known Allergies (Unverified , 02/26/16) Subjective hip pain Objective Last 24 Hour Vital Signs Date Time Temp Pulse Resp B/P (MAP) Pulse Ox O2 Delivery O2 Flow Rate FiO2 09/05/17 15:33 98.4 95 20 112/69 97 Room Air 09/05/17 13:23 133/98 09/05/17 12:10 98.0 78 20 133/98 100 Room Air 09/05/17 08:26 97.9 81 20 135/82 100 Room Air 09/05/17 08:17 93 151/100 09/05/17 08:16 93 151/100 09/05/17 06:49 151/100 09/05/17 00:00 98.2 93 21 157/118 97 Room Air 09/04/17 21:43 150/108 09/04/17 21:43 102 150/108 09/04/17 19:18 98.1 102 20 150/108 94 Room Air 09/04/17 18:10 97.7 09/04/17 18:00 97.6 90 20 139/84 Room Air 09/04/17 18:00 Room Air 09/04/17 17:05 72 144/66 Intake and Output 09/05/17 09/06/17 19:00 07:00 Intake Total 240 ml Balance 240 ml Intake Oral 240 ml Height (Feet): 5 Height (Inches): 5.00 Weight (Pounds): 140 Keven Scott MD Sep 05, 2017 16:33
--- NOTE | 2017-09-05 18:38 | Cardiology Progress Note ---
Assessment/Plan Assessment/Plan 1. Atypical chest pain, non-ischemic nuclear stress test at outside hospital in Dec 2016. Refused stress test this admission. Normal LVEF. 2. Hx of CAD, s/p PCI, continue ASA and statins. 3. Atrial fibrillation with controlled ventricular response, continue Eliquis, carvedilol and cardizem. 4. Hx of HTN, stage II, will optimize clonidine, coreg and cardizem. 5. Severe pulmonary HTN, likely due to ESRD. Subjective Subjective No cardiac events. Off the telemetry unit. Objective Last 24 Hour Vital Signs Date Time Temp Pulse Resp B/P (MAP) Pulse Ox O2 Delivery O2 Flow Rate FiO2 09/05/17 15:33 98.4 95 20 112/69 97 Room Air 09/05/17 13:23 133/98 09/05/17 12:10 98.0 78 20 133/98 100 Room Air 09/05/17 08:26 97.9 81 20 135/82 100 Room Air 09/05/17 08:17 93 151/100 09/05/17 08:16 93 151/100 09/05/17 06:49 151/100 09/05/17 00:00 98.2 93 21 157/118 97 Room Air 09/04/17 21:43 150/108 09/04/17 21:43 102 150/108 09/04/17 19:18 98.1 102 20 150/108 94 Room Air Intake and Output 09/05/17 09/06/17 19:00 07:00 Intake Total 240 ml Balance 240 ml Intake Oral 240 ml 2D Echo: LVEF 55%, RVSP 60 mmHg s/w severe pulmonary HTN. Objective HEENT: PERRLA, EOMI, Anicteric , pale conjunctiva. NECK: No JVD, carotid upstroke 2+ B/L with o bruit LUNGS: Decreased breath sounds bilaterally. CVS: Normal S1S2, irregularly irregular, tachycardia, 2/6 MSM at LSB. ABDOMEN: Benign, NT/ND, + BS Ext: No evidence of edema, clubbing or cyanosis. ALVINO LIZARRAGA Sep 05, 2017 18:38
--- NOTE | 2017-09-05 19:02 | Nephrology Progress Note ---
Assessment/Plan Assessment 1. End-stage renal disease. 2. Anemia of chronic kidney disease. 3. History of osteodystrophy. 4. Malfunctioning arteriovenous fistula. 5. Receiving dialysis from [facility] from her right groin. Plan plan to continue epogen monitoring phos ,PTH dialysis as schedule pain management Subjective Constitutional: Reports: no symptoms HEENT: Reports: no symptoms Genitourinary: Reports: no symptoms Neurologic/Psychiatric: Reports: no symptoms Objective Objective Last 24 Hour Vital Signs Date Time Temp Pulse Resp B/P (MAP) Pulse Ox O2 Delivery O2 Flow Rate FiO2 09/05/17 15:33 98.4 95 20 112/69 97 Room Air 09/05/17 13:23 133/98 09/05/17 12:10 98.0 78 20 133/98 100 Room Air 09/05/17 08:26 97.9 81 20 135/82 100 Room Air 09/05/17 08:17 93 151/100 09/05/17 08:16 93 151/100 09/05/17 06:49 151/100 09/05/17 00:00 98.2 93 21 157/118 97 Room Air 09/04/17 21:43 150/108 09/04/17 21:43 102 150/108 09/04/17 19:18 98.1 102 20 150/108 94 Room Air Intake and Output 09/05/17 09/06/17 19:00 07:00 Intake Total 240 ml Balance 240 ml Intake Oral 240 ml Height (Feet): 5 Height (Inches): 5.00 Weight (Pounds): 140 Objective HEAD AND NECK: No JVP. No LAD. No thyromegaly. Extraocular movements intact. Pupils are reactive to light and accommodation. LUNGS: Clear to auscultation. CARDIAC: Regular rate and rhythm. S1, S2. No murmur. No rub. ABDOMEN: Soft, nontender, and nondistended. EXTREMITIES: No edema. No clubbing. No cyanosis. CORDELIA HIGUERA Sep 05, 2017 19:02
[2017-09-05] MEDS: Dyna-Hex 2% Top Sol 2oz TOPIC SCH (20:42)
[2017-09-05] MEDS: Sensipar 30mg Tab ORAL SCH (20:42)
--- NOTE | 2017-09-05 21:41 | General Progress Note ---
Assessment/Plan Assessment/Plan IMPRESSION/PLAN: # Thrombocytopenia, not critically low. ok to monitor for now. Improving 1. Anemia of kidney disease. Nephrology service following --> Hgb goal above 7. S/p multiple transfusions. Continue to watch counts 2. Anemia of chronic disease. No evidence of iron deficiency 3. End-stage renal disease, hemodialysis dependent. 4. Coronary artery disease. 5. Hypertension. 6. Congestive heart failure. Subjective ROS Limited/Unobtainable: Yes Allergies: Coded Allergies: No Known Allergies (Unverified , 02/26/16) Subjective NAD Objective Last 24 Hour Vital Signs Date Time Temp Pulse Resp B/P (MAP) Pulse Ox O2 Delivery O2 Flow Rate FiO2 09/05/17 20:42 78 132/79 09/05/17 20:00 97.7 78 18 132/79 100 Room Air 09/05/17 19:25 96.6 64 20 121/85 100 Room Air 09/05/17 15:33 98.4 95 20 112/69 97 Room Air 09/05/17 13:23 133/98 09/05/17 12:10 98.0 78 20 133/98 100 Room Air 09/05/17 08:26 97.9 81 20 135/82 100 Room Air 09/05/17 08:17 93 151/100 09/05/17 08:16 93 151/100 09/05/17 06:49 151/100 09/05/17 00:00 98.2 93 21 157/118 97 Room Air 09/04/17 21:43 150/108 09/04/17 21:43 102 150/108 Intake and Output 09/05/17 09/06/17 19:00 07:00 Intake Total 240 ml Balance 240 ml Intake Oral 240 ml Height (Feet): 5 Height (Inches): 5.00 Weight (Pounds): 140 General Appearance: no apparent distress EENT: normal ENT inspection Neck: normal alignment Cardiovascular: normal peripheral pulses Respiratory/Chest: chest wall non-tender Abdomen: no organomegaly Edema: trace edema Lauri Macias Sep 05, 2017 21:41
--- NOTE | 2017-09-05 21:52 | Pulmonology Progress Note ---
Assessment/Plan Assessment/Plan 1. Acute bronchitis 2. End-stage renal disease. 3. Hypertensive heart disease. 4. Atrial fibrillation. 5. Anemia of renal disease. no resp distress cont Augmentin dc planning FU CXR PRN Subjective Constitutional: Reports: no symptoms HEENT: Repors: no symptoms Respiratory: Reports: dry cough Cardiovascular: Reports: no symptoms Gastrointestinal/Abdominal: Reports: no symptoms Allergies: Coded Allergies: No Known Allergies (Unverified , 02/26/16) Subjective ding well no distress toelrating po no fever noted still with cough Objective Last 24 Hour Vital Signs Date Time Temp Pulse Resp B/P (MAP) Pulse Ox O2 Delivery O2 Flow Rate FiO2 09/05/17 20:42 78 132/79 09/05/17 20:00 97.7 78 18 132/79 100 Room Air 09/05/17 19:25 96.6 64 20 121/85 100 Room Air 09/05/17 15:33 98.4 95 20 112/69 97 Room Air 09/05/17 13:23 133/98 09/05/17 12:10 98.0 78 20 133/98 100 Room Air 09/05/17 08:26 97.9 81 20 135/82 100 Room Air 09/05/17 08:17 93 151/100 09/05/17 08:16 93 151/100 09/05/17 06:49 151/100 09/05/17 00:00 98.2 93 21 157/118 97 Room Air Intake and Output 09/05/17 09/06/17 19:00 07:00 Intake Total 240 ml Balance 240 ml Intake Oral 240 ml General Appearance: WD/WN Respiratory/Chest: lungs clear Cardiovascular: normal peripheral pulses, regular rhythm Abdomen: soft, non tender, no organomegaly Skin: no rash Neurologic/Psychiatric: alert, oriented x 3 Current Medications Medications (Trade) Dose Ordered Sig/Sneha Route PRN Reason Start Time Stop Time Status Last Admin Dose Admin Acetaminophen (Tylenol) 650 mg Q4H PRN ORAL Mild Pain/Temp > 100.5 08/29/17 21:00 09/28/17 20:59 Amoxicillin/ Clavulanate Potassium (Augmentin) 500 mg QHS ORAL 09/02/17 21:00 09/09/17 20:59 09/04/17 21:43 Apixaban (Eliquis) 2.5 mg BID ORAL 08/30/17 09:00 09/22/17 12:59 09/04/17 17:59 Carvedilol (Coreg) 25 mg EVERY 12 HOURS ORAL 08/29/17 21:00 09/25/17 20:59 09/05/17 20:42 Chlorhexidine Gluconate (Rimma-Hex 2%) 1 applic DAILY@2000 TOPIC 08/30/17 20:00 09/29/17 19:59 09/05/17 20:42 Cinacalcet (Sensipar) 30 mg QHS ORAL 08/29/17 21:00 09/23/17 20:59 09/05/17 20:42 Clonidine HCl (Catapres) 0.1 mg EVERY 8 HOURS ORAL 08/29/17 22:00 09/22/17 17:59 09/05/17 13:23 Diltiazem HCl (Cardizem CD) 360 mg DAILY ORAL 09/03/17 09:00 10/03/17 08:59 09/05/17 08:17 Diphenhydramine HCl (Benadryl) 25 mg Q4H PRN IVP Itching 09/01/17 22:15 10/01/17 22:14 09/05/17 19:21 Docusate Sodium (Colace) 100 mg TID ORAL 08/30/17 09:00 09/22/17 17:59 09/05/17 13:23 Duloxetine HCl (Cymbalta) 30 mg DAILY ORAL 09/02/17 09:00 10/02/17 08:59 09/05/17 08:16 Epoetin Brayan (Procrit (for ESRD on dialysis)) 10,000 units THU-THU-THU SUBQ 08/31/17 21:00 09/23/17 20:59 09/04/17 21:44 Hydromorphone HCl (Dilaudid) 2 mg Q4H PRN ORAL Severe Pain (Pain Scale 7-10) 09/03/17 09:30 09/10/17 09:29 09/05/17 20:42 Ondansetron HCl (Zofran) 4 mg Q6H PRN IVP Nausea & Vomiting 08/29/17 21:00 09/28/17 20:59 Oxycodone/ Acetaminophen (Percocet 10/325) 1 tab Q4H PRN ORAL Moderate Pain (Pain Scale 4-6) 09/04/17 08:30 09/11/17 08:29 Sevelamer Carbonate (Renvela) 2,400 mg THREE TIMES A DAY ORAL 08/30/17 09:00 09/23/17 12:59 09/05/17 08:16 QUIN NEW DO Sep 05, 2017 21:52
[2017-09-06] VITALS (8 sets, daily range): BP systolic 143–180; BP diastolic 74–120
[2017-09-06] MEDS: DiphenhydrAMINE 50mg/ml Inj IVP PRN ×3 (01:36→16:21)
[2017-09-06] MEDS: HYDROmorphone 2mg tab ORAL PRN ×2 (03:50→10:06)
[2017-09-06 07:43] LABS: BASOPHILS % (AUTO) 1.6 % (0.0-2.0); EOSINOPHILS % (AUTO) 5.1 % (0.0-3.0); MEAN CORPUSCULAR HEMOGLOBIN 32.7 PG (27.0-31.0); MEAN CORPUSCULAR HGB CONC 31.5 G/DL (32.0-36.0); MEAN CORPUSCULAR VOLUME 104 FL (80-99); MEAN PLATELET VOLUME 6.9 FL (6.5-10.1); NEUTROPHILS % (AUTO) 78.3 % (45.0-75.0); PLATELET COUNT 124 K/UL (150-450); RED BLOOD COUNT 2.63 M/UL (4.20-5.40); RED CELL DISTRIBUTION WIDTH 18.6 % (11.6-14.8); WHITE BLOOD COUNT 3.9 K/UL (4.8-10.8)
[2017-09-06] MEDS: Docusate 100mg cap ORAL SCH ×3 (08:36→18:14)
[2017-09-06] MEDS: Carvedilol 25mg Tab ORAL SCH (08:36)
[2017-09-06] MEDS: DULoxetine 30mg cap ORAL SCH ×2 (08:37→08:53)
[2017-09-06] MEDS: dilTIAZem HCl CD 180mg cap ORAL SCH (08:37)
[2017-09-06] MEDS: Eliquis 2.5mg tablet ORAL SCH ×2 (08:46→16:26)
--- NOTE | 2017-09-06 09:19 | Infectious Diseases Prog Note ---
Assessment/Plan Assessment/Plan A: 1. pneumonia 2. renal failure, ESRD 3. pulmonary hypertension P 1. continue Augmentin 2. Agree with discharge Subjective ROS Limited/Unobtainable: No Respiratory: Reports: shortness of breath Gastrointestinal/Abdominal: Reports: bloating Allergies: Coded Allergies: No Known Allergies (Unverified , 02/26/16) Objective Vital Signs Last 24 Hour Vital Signs Date Time Temp Pulse Resp B/P (MAP) Pulse Ox O2 Delivery O2 Flow Rate FiO2 09/06/17 08:37 101 180/100 09/06/17 08:36 79 180/101 09/06/17 08:00 97.7 79 18 180/81 100 Nasal Cannula 2.0 09/06/17 05:42 110 153/104 09/06/17 05:38 153/104 09/06/17 04:49 98.1 09/06/17 04:00 98.1 107 20 152/110 100 Room Air 09/05/17 23:32 96.1 79 20 156/103 99 Room Air 09/05/17 22:20 155/92 09/05/17 20:42 78 132/79 09/05/17 20:00 97.7 78 18 132/79 100 Room Air 09/05/17 19:25 96.6 64 20 121/85 100 Room Air 09/05/17 15:33 98.4 95 20 112/69 97 Room Air 09/05/17 13:23 133/98 09/05/17 12:10 98.0 78 20 133/98 100 Room Air Height (Feet): 5 Height (Inches): 5.00 Weight (Pounds): 140 General Appearance: no acute distress HEENT: mucous membranes moist Respiratory/Chest: lungs clear, other - O2 by cannula Cardiovascular: tachycardia Abdomen: soft, non tender Extremities: other - edema of legs, left femoral HD line Neurologic/Psychiatric: alert, oriented x 3, responsive Laboratory Tests Test 09/06/17 06:25 White Blood Count 3.9 K/UL (4.8-10.8) L Red Blood Count 2.63 M/UL (4.20-5.40) L Hemoglobin 8.6 G/DL (12.0-16.0) L Hematocrit 27.3 % (37.0-47.0) L Mean Corpuscular Volume 104 FL (80-99) H Mean Corpuscular Hemoglobin 32.7 PG (27.0-31.0) H Mean Corpuscular Hemoglobin Concent 31.5 G/DL (32.0-36.0) L Red Cell Distribution Width 18.6 % (11.6-14.8) H Platelet Count 124 K/UL (150-450) L Mean Platelet Volume 6.9 FL (6.5-10.1) Neutrophils (%) (Auto) 78.3 % (45.0-75.0) H Lymphocytes (%) (Auto) 5.0 % (20.0-45.0) L Monocytes (%) (Auto) 10.0 % (1.0-10.0) Eosinophils (%) (Auto) 5.1 % (0.0-3.0) H Basophils (%) (Auto) 1.6 % (0.0-2.0) Current Medications Medications (Trade) Dose Ordered Sig/Sneha Route PRN Reason Start Time Stop Time Status Last Admin Dose Admin Acetaminophen (Tylenol) 650 mg Q4H PRN ORAL Mild Pain/Temp > 100.5 08/29/17 21:00 09/28/17 20:59 Amoxicillin/ Clavulanate Potassium (Augmentin) 500 mg QHS ORAL 09/02/17 21:00 09/09/17 20:59 09/05/17 22:19 Apixaban (Eliquis) 2.5 mg BID ORAL 08/30/17 09:00 09/22/17 12:59 09/04/17 17:59 Carvedilol (Coreg) 25 mg EVERY 12 HOURS ORAL 08/29/17 21:00 09/25/17 20:59 09/06/17 08:36 Chlorhexidine Gluconate (Rimma-Hex 2%) 1 applic DAILY@1999 TOPIC 08/30/17 20:00 09/29/17 19:59 09/05/17 20:42 Cinacalcet (Sensipar) 30 mg QHS ORAL 08/29/17 21:00 09/23/17 20:59 09/05/17 20:42 Clonidine HCl (Catapres) 0.1 mg EVERY 8 HOURS ORAL 08/29/17 22:00 09/22/17 17:59 09/06/17 05:38 Diltiazem HCl (Cardizem CD) 360 mg DAILY ORAL 09/03/17 09:00 10/03/17 08:59 09/06/17 08:37 Diphenhydramine HCl (Benadryl) 25 mg Q4H PRN IVP Itching 09/01/17 22:15 10/01/17 22:14 09/06/17 08:47 Docusate Sodium (Colace) 100 mg TID ORAL 08/30/17 09:00 09/22/17 17:59 09/06/17 08:36 Duloxetine HCl (Cymbalta) 30 mg DAILY ORAL 09/02/17 09:00 10/02/17 08:59 09/05/17 08:16 Epoetin Brayan (Procrit (for ESRD on dialysis)) 10,000 units THU- SUBQ 08/31/17 21:00 09/23/17 20:59 09/04/17 21:44 Hydromorphone HCl (Dilaudid) 2 mg Q4H PRN ORAL Severe Pain (Pain Scale 7-10) 09/03/17 09:30 09/10/17 09:29 09/06/17 03:50 Ondansetron HCl (Zofran) 4 mg Q6H PRN IVP Nausea & Vomiting 08/29/17 21:00 09/28/17 20:59 Oxycodone/ Acetaminophen (Percocet 10/325) 1 tab Q4H PRN ORAL Moderate Pain (Pain Scale 4-6) 09/04/17 08:30 09/11/17 08:29 Sevelamer Carbonate (Renvela) 2,400 mg THREE TIMES A DAY ORAL 08/30/17 09:00 09/23/17 12:59 09/06/17 08:36 ALFONZO MOLINA Sep 06, 2017 09:19
--- NOTE | 2017-09-06 10:48 | Pulmonology Progress Note ---
Assessment/Plan Assessment/Plan 1. Acute bronchitis 2. End-stage renal disease. 3. Hypertensive heart disease. 4. Atrial fibrillation. 5. Anemia of renal disease. no resp distress cont Augmentin dc planning per primary continue o2, check ra sat FU CXR PRN Subjective Constitutional: Reports: no symptoms HEENT: Repors: no symptoms Respiratory: Reports: no symptoms Cardiovascular: Reports: no symptoms Musculoskeletal: Reports: pain Allergies: Coded Allergies: No Known Allergies (Unverified , 02/26/16) Subjective doing well no distress toelrating po no fever noted still with cough remains on O2 gait instability noted wanted to go home, not SZNF Objective Last 24 Hour Vital Signs Date Time Temp Pulse Resp B/P (MAP) Pulse Ox O2 Delivery O2 Flow Rate FiO2 09/06/17 08:37 101 180/100 09/06/17 08:36 79 180/101 09/06/17 08:00 97.7 79 18 180/81 100 Nasal Cannula 2.0 09/06/17 05:42 110 153/104 09/06/17 05:38 153/104 09/06/17 04:49 98.1 09/06/17 04:00 98.1 107 20 152/110 100 Room Air 09/05/17 23:32 96.1 79 20 156/103 99 Room Air 09/05/17 22:20 155/92 09/05/17 20:42 78 132/79 09/05/17 20:00 97.7 78 18 132/79 100 Room Air 09/05/17 19:25 96.6 64 20 121/85 100 Room Air 09/05/17 15:33 98.4 95 20 112/69 97 Room Air 09/05/17 13:23 133/98 09/05/17 12:10 98.0 78 20 133/98 100 Room Air General Appearance: WD/WN Respiratory/Chest: lungs clear, normal breath sounds Cardiovascular: normal rate, regular rhythm Abdomen: soft, non tender, no organomegaly Extremities: no edema Neurologic/Psychiatric: alert, oriented x 3, responsive Laboratory Tests 09/06/17 06:25: White Blood Count 3.9L, Red Blood Count 2.63L, Hemoglobin 8.6L, Hematocrit 27.3L , Mean Corpuscular Volume 104H, Mean Corpuscular Hemoglobin 32.7H, Mean Corpuscular Hemoglobin Concent 31.5L, Red Cell Distribution Width 18.6H, Platelet Count 124L, Mean Platelet Volume 6.9, Neutrophils (%) (Auto) 78.3H, Lymphocytes (%) (Auto) 5.0L, Monocytes (%) (Auto) 10.0, Eosinophils (%) (Auto) 5.1H, Basophils (%) (Auto) 1.6 Current Medications Medications (Trade) Dose Ordered Sig/Sneha Route PRN Reason Start Time Stop Time Status Last Admin Dose Admin Acetaminophen (Tylenol) 650 mg Q4H PRN ORAL Mild Pain/Temp > 100.5 08/29/17 21:00 09/28/17 20:59 Amoxicillin/ Clavulanate Potassium (Augmentin) 500 mg QHS ORAL 09/02/17 21:00 09/09/17 20:59 09/05/17 22:19 Apixaban (Eliquis) 2.5 mg BID ORAL 08/30/17 09:00 09/22/17 12:59 09/04/17 17:59 Carvedilol (Coreg) 25 mg EVERY 12 HOURS ORAL 08/29/17 21:00 09/25/17 20:59 09/06/17 08:36 Chlorhexidine Gluconate (Rimma-Hex 2%) 1 applic DAILY@1999 TOPIC 08/30/17 20:00 09/29/17 19:59 09/05/17 20:42 Cinacalcet (Sensipar) 30 mg QHS ORAL 08/29/17 21:00 09/23/17 20:59 09/05/17 20:42 Clonidine HCl (Catapres) 0.1 mg EVERY 8 HOURS ORAL 08/29/17 22:00 09/22/17 17:59 09/06/17 05:38 Diltiazem HCl (Cardizem CD) 360 mg DAILY ORAL 09/03/17 09:00 10/03/17 08:59 09/06/17 08:37 Diphenhydramine HCl (Benadryl) 25 mg Q4H PRN IVP Itching 09/01/17 22:15 10/01/17 22:14 09/06/17 08:47 Docusate Sodium (Colace) 100 mg TID ORAL 08/30/17 09:00 09/22/17 17:59 09/06/17 08:36 Duloxetine HCl (Cymbalta) 30 mg DAILY ORAL 09/02/17 09:00 10/02/17 08:59 09/05/17 08:16 Epoetin Brayan (Procrit (for ESRD on dialysis)) 10,000 units THU- SUBQ 08/31/17 21:00 09/23/17 20:59 09/04/17 21:44 Hydromorphone HCl (Dilaudid) 2 mg Q4H PRN ORAL Severe Pain (Pain Scale 7-10) 09/03/17 09:30 09/10/17 09:29 09/06/17 10:06 Ondansetron HCl (Zofran) 4 mg Q6H PRN IVP Nausea & Vomiting 08/29/17 21:00 09/28/17 20:59 Oxycodone/ Acetaminophen (Percocet 10/325) 1 tab Q4H PRN ORAL Moderate Pain (Pain Scale 4-6) 09/04/17 08:30 09/11/17 08:29 Sevelamer Carbonate (Renvela) 2,400 mg THREE TIMES A DAY ORAL 08/30/17 09:00 09/23/17 12:59 09/06/17 08:36 QUIN NEW DO Sep 06, 2017 10:48
[2017-09-06 10:59] LABS: ANION GAP 11 mmol/L (5-15); CALCIUM 8.2 MG/DL (8.5-10.1); CARBON DIOXIDE 24 MMOL/L (21-32); CHLORIDE 104 MMOL/L (98-107); CREATININE 6.4 MG/DL (0.55-1.30); GLOMERULAR FILTRATION RATE 8.4 mL/min (>60); SODIUM 139 MMOL/L (136-145)
--- NOTE | 2017-09-06 12:35 | General Progress Note ---
Assessment/Plan Assessment/Plan (1) Right hip pain (2) Right hip Fx s/p ORIF (3) Cervical DDD (4) Cervical Spondylosis (5) Cervical Radiculopathy (6) H/o Cervical surgery Pt to be continued on the Dilaudid and Percocet. D/w Dr. Stockton and he concurred. Subjective Date patient seen: Sep 06, 2017 Time patient seen: 11:00 - am Allergies: Coded Allergies: No Known Allergies (Unverified , 02/26/16) Subjective REVIEW OF SYSTEMS: She denies rash, fever, chills, sweating, dizziness, drowsiness, blurred vision, sore throat, or change in weight. No shortness of breath or chest pain. No nausea, vomiting, diarrhea, or blood in the stool or urine. No bowel or bladder incontinence. No dysuria. She is complaining of right hip and neck pain. SUBJECTIVE: Patient her pain is unchanged and has been using the Dilaudid She was advised to use the Percocet as well for moderate pain. She seems to understand. Objective Last 24 Hour Vital Signs Date Time Temp Pulse Resp B/P (MAP) Pulse Ox O2 Delivery O2 Flow Rate FiO2 09/06/17 11:15 97.7 09/06/17 08:37 101 180/100 09/06/17 08:36 79 180/101 09/06/17 08:00 97.7 79 18 180/81 100 Nasal Cannula 2.0 09/06/17 05:42 110 153/104 09/06/17 05:38 153/104 09/06/17 04:00 98.1 107 20 152/110 100 Room Air 09/05/17 23:32 96.1 79 20 156/103 99 Room Air 09/05/17 22:20 155/92 09/05/17 20:42 78 132/79 09/05/17 20:00 97.7 78 18 132/79 100 Room Air 09/05/17 19:25 96.6 64 20 121/85 100 Room Air 09/05/17 15:33 98.4 95 20 112/69 97 Room Air 09/05/17 13:23 133/98 Laboratory Tests 09/06/17 06:25: White Blood Count 3.9L, Red Blood Count 2.63L, Hemoglobin 8.6L, Hematocrit 27.3L , Mean Corpuscular Volume 104H, Mean Corpuscular Hemoglobin 32.7H, Mean Corpuscular Hemoglobin Concent 31.5L, Red Cell Distribution Width 18.6H, Platelet Count 124L, Mean Platelet Volume 6.9, Neutrophils (%) (Auto) 78.3H, Lymphocytes (%) (Auto) 5.0L, Monocytes (%) (Auto) 10.0, Eosinophils (%) (Auto) 5.1H, Basophils (%) (Auto) 1.6, Sodium Level 139, Potassium Level 6.0*H, Chloride Level 104, Carbon Dioxide Level 24, Anion Gap 11, Blood Urea Nitrogen 52H, Creatinine 6.4H, Estimat Glomerular Filtration Rate 8.4, Glucose Level 98, Calcium Level 8.2L Height (Feet): 5 Height (Inches): 5.00 Weight (Pounds): 140 Objective GENERAL: Alert, awake, and oriented. HEENT: PERRLA. NECK: Range of motion is decreased due to the patient's condition with tenderness as well as adenopathy with surgical scar noted in the midline of the posterior cervical area. LUNGS: Decreased breath sounds bilaterally. ABDOMEN: Benign. BACK: Range of motion is decreased in flexion and extension. EXTREMITIES: No cyanosis. No clubbing. NEUROLOGICAL: No changes. Procedure: XRAY Hip Routine 2v+ R Indications: hip pain Findings: Cemented total hip arthroplasty demonstrated. No malalignment or definite acute fracture is identified. The bones are severely osteopenic. DAIJA FERRARI Sep 06, 2017 12:35
[2017-09-06] MEDS: HydrALAZINE 25mg tab ORAL SCH ×2 (13:50→18:14)
--- NOTE | 2017-09-06 22:24 | General Progress Note ---
Assessment/Plan Assessment/Plan IMPRESSION/PLAN: # Thrombocytopenia 2/2 medications, not critically low. ok to monitor for now. 1. Anemia of kidney disease. Nephrology service following --> Hgb goal above 7. S/p multiple transfusions. Continue to watch counts 2. Anemia of chronic disease. No evidence of iron deficiency 3. End-stage renal disease, hemodialysis dependent. 4. Coronary artery disease. 5. Hypertension. 6. Congestive heart failure. Subjective ROS Limited/Unobtainable: Yes Allergies: Coded Allergies: No Known Allergies (Unverified , 02/26/16) Subjective afebrile, complaining of body pain Objective Last 24 Hour Vital Signs Date Time Temp Pulse Resp B/P (MAP) Pulse Ox O2 Delivery O2 Flow Rate FiO2 09/06/17 19:06 165/120 09/06/17 18:14 155/86 09/06/17 17:30 97.2 98 20 155/86 Room Air 09/06/17 17:30 Room Air 09/06/17 16:00 87 18 143/84 98 Room Air 09/06/17 14:00 145/74 09/06/17 13:50 145/74 09/06/17 13:00 Room Air 09/06/17 13:00 97.0 20 155/86 Room Air 09/06/17 13:00 97.0 81 20 148/86 93 Room Air 2.0 21 09/06/17 12:00 97.9 86 19 145/74 93 Room Air 09/06/17 11:15 97.7 09/06/17 08:37 101 180/100 09/06/17 08:36 79 180/101 09/06/17 08:00 97.7 79 18 180/81 100 Nasal Cannula 2.0 09/06/17 05:42 110 153/104 09/06/17 05:38 153/104 09/06/17 04:00 98.1 107 20 152/110 100 Room Air 09/05/17 23:32 96.1 79 20 156/103 99 Room Air Intake and Output 09/06/17 09/07/17 19:00 07:00 Intake Total 750 ml Balance 750 ml Intake Oral 750 ml # Bowel Movements 1 Laboratory Tests 09/06/17 06:25: White Blood Count 3.9L, Red Blood Count 2.63L, Hemoglobin 8.6L, Hematocrit 27.3L , Mean Corpuscular Volume 104H, Mean Corpuscular Hemoglobin 32.7H, Mean Corpuscular Hemoglobin Concent 31.5L, Red Cell Distribution Width 18.6H, Platelet Count 124L, Mean Platelet Volume 6.9, Neutrophils (%) (Auto) 78.3H, Lymphocytes (%) (Auto) 5.0L, Monocytes (%) (Auto) 10.0, Eosinophils (%) (Auto) 5.1H, Basophils (%) (Auto) 1.6, Sodium Level 139, Potassium Level 6.0*H, Chloride Level 104, Carbon Dioxide Level 24, Anion Gap 11, Blood Urea Nitrogen 52H, Creatinine 6.4H, Estimat Glomerular Filtration Rate 8.4, Glucose Level 98, Calcium Level 8.2L Height (Feet): 5 Height (Inches): 5.00 Weight (Pounds): 140 General Appearance: no apparent distress EENT: normal ENT inspection Neck: non-tender Cardiovascular: normal peripheral pulses, normal rate Extremities: non-tender Edema: trace edema Neurologic: wet char conveyor tender II-XII grossly normal Lauri Macias Sep 06, 2017 22:23
--- NOTE | 2017-09-06 23:59 | General Progress Note ---
Assessment/Plan Assessment/Plan mdd cymblta 30mg qam Subjective Date patient seen: Sep 05, 2017 Allergies: Coded Allergies: No Known Allergies (Unverified , 02/26/16) Objective Last 24 Hour Vital Signs Date Time Temp Pulse Resp B/P (MAP) Pulse Ox O2 Delivery O2 Flow Rate FiO2 09/06/17 19:06 165/120 09/06/17 18:14 155/86 09/06/17 17:30 97.2 98 20 155/86 Room Air 09/06/17 17:30 Room Air 09/06/17 16:00 87 18 143/84 98 Room Air 09/06/17 14:00 145/74 09/06/17 13:50 145/74 09/06/17 13:00 Room Air 09/06/17 13:00 97.0 20 155/86 Room Air 09/06/17 13:00 97.0 81 20 148/86 93 Room Air 2.0 21 09/06/17 12:00 97.9 86 19 145/74 93 Room Air 09/06/17 11:15 97.7 09/06/17 08:37 101 180/100 09/06/17 08:36 79 180/101 09/06/17 08:00 97.7 79 18 180/81 100 Nasal Cannula 2.0 09/06/17 05:42 110 153/104 09/06/17 05:38 153/104 09/06/17 04:00 98.1 107 20 152/110 100 Room Air Intake and Output 09/06/17 09/07/17 19:00 07:00 Intake Total 750 ml Balance 750 ml Intake Oral 750 ml # Bowel Movements 1 Laboratory Tests 09/06/17 06:25: White Blood Count 3.9L, Red Blood Count 2.63L, Hemoglobin 8.6L, Hematocrit 27.3L , Mean Corpuscular Volume 104H, Mean Corpuscular Hemoglobin 32.7H, Mean Corpuscular Hemoglobin Concent 31.5L, Red Cell Distribution Width 18.6H, Platelet Count 124L, Mean Platelet Volume 6.9, Neutrophils (%) (Auto) 78.3H, Lymphocytes (%) (Auto) 5.0L, Monocytes (%) (Auto) 10.0, Eosinophils (%) (Auto) 5.1H, Basophils (%) (Auto) 1.6, Sodium Level 139, Potassium Level 6.0*H, Chloride Level 104, Carbon Dioxide Level 24, Anion Gap 11, Blood Urea Nitrogen 52H, Creatinine 6.4H, Estimat Glomerular Filtration Rate 8.4, Glucose Level 98, Calcium Level 8.2L Height (Feet): 5 Height (Inches): 5.00 Weight (Pounds): 140 Elva Car M.D. Sep 06, 2017 23:59
--- NOTE | 2017-09-08 09:14 | Discharge Summary ---
Discharge Summary Hospital Course Date of Admission Aug 23, 2017 at 02:30 Date of Discharge Sep 06, 2017 at 19:30 Admitting Diagnosis acute coronary syndrome HPI Latisha Cordova is a 51 year old female who was admitted on Aug 23, 2017 at 02:30 for Acute Coronary Syndrome Hospital Course dc summary #[id number] Discharge Discharge Disposition Patient signed AMA Discharge Diagnoses: Discharge Instructions Discharge Instructions Special Instructions I have been assigned to complete a D/C Summary on this account. I was not involved in the patient management Nela Freeman NP ([place]) Sep 08, 2017 09:14
--- NOTE | 2017-09-08 23:45 | Discharge Summary 2 SIG ---
DATE OF ADMISSION: 08/23/2017 DATE OF SIGNING AGAINST MEDICAL ADVISE 09/06/2017 REASON FOR ADMISSION: 51-year-old female with a history of end-stage renal disease and hypertension, on hemodialysis, atrial fibrillation, on anticoagulation, coronary artery disease with one stent, presented with chest pain for three hours. The patient was admitted with chest pain, rule out acute coronary syndrome. HOSPITAL COURSE: The patient was admitted to telemetry floor. Cardiology and Nephrology consults initially were requested. Troponin x2 were negative. EKG revealed atrial fibrillation. Per special effects person, the patient was ruled out for acute coronary syndrome. The patient with a history of coronary artery disease, status post percutaneous coronary intervention. Aspirin and statin were continued. Lipid panel was stable. Previous nuclear stress test at the outside hospital in December 2016 was nonischemic. The patient refused stress test on this admission. Echocardiogram revealed ejection fraction of 40% to 45% with mild global left ventricular hypokinesis, likely due to atrial fibrillation. Mild mitral regurgitation, [id number] tricuspid regurgitation, right ventricular systolic pressure of 60 consistent with severe pulmonary hypertension. Telemetry demonstrated atrial fibrillation with a controlled ventricular response. The patient on beta -ismael and Cardizem for rate control and anticoagulation with Eliquis. Cardizem dose was optimized by special effects person due to hypertension stage II. The patient also was on clonidine on as needed basis. According to special effects person, the patient had atypical chest pain, nonischemic. The patient refused ischemia evaluation with a stress test on this admission. Case Packer And Sealer closely followed. Hemodialysis was provided as per group therapy counselor. Dialysis done via PermCath from the right groin since the patient had malfunctioning of AV fistula. The patient demonstrated anemia of chronic disease. The patient was on Epogen. Hemoglobin and hematocrit were closely monitored. The patient had undergone transfusion of three units of packed red blood cells. Pulvi Mixer Operator followed. Per car filler, no evidence of iron-deficiency anemia. Pulvi Mixer Operator recommended a goal to keep hemoglobin above 7.5. Abrasive Worker followed for the respiratory symptoms. The patient was found to have cough. Chest x-ray revealed no evidence of pneumonia. The patient was diagnosed with acute bronchitis. The patient was on supplemental oxygen on as needed basis o keep saturation above 92%. Pulmonary toilet was provided. The patient was on empiric antibiotic. The patient was clinically improving. Orthopedic surgeon had seen the patient due to the history of recent right hip arthroplasty. Per orthopedic surgeon, the patient was doing well. He recommended weightbearing as tolerated, continue with physical therapy. Implant looked good. No evidence of infection. Surgeon recommended pain specialist consultation. Subsequently, pain specialist consultation was requested. Pain management provided as per pain specialist recommendation. Psychiatrist had seen and evaluated the patient and diagnosed her with major depressive disorder . Patient was started on Cymbalta.The patient was discharged to senior living facility, however, the patient declined and appealed. Subsequently, the patient decided to sign against medical advice . She called the ambulance. Risks and consequences of signing against medical advice were explained to the patient. The patient verbalized understanding, but insisted on leaving, signed the form and left. FINAL DIAGNOSES: 1. Atypical chest pain, nonischemic. 2. Coronary artery disease with history of percutaneous coronary intervention. 3. Atrial fibrillation with a controlled ventricular response. 4. Hypertension, stage II. 5. Severe pulmonary hypertension. 6. Congestive heart failure. 7. End-stage renal disease, on hemodialysis. 8. Anemia of chronic kidney disease. 9. History of osteodystrophy. 10. Malfunctioning arteriovenous fistula. 11. Acute bronchitis. 12. Major depressive disorder. 13. Cervical radiculopathy. 14. Spinal stenosis. 15. Status post recent right hip arthroplasty. Keven Scott M.D. I have been assigned to dictate discharge summary on this account and I was not involved in the patient's management. Nela EspinozaJames J. Peters Va Medical Centermarzena N.PLisa DR: Kam JOB#: [id number] CC: [id number]
--- NOTE | 2017-09-15 09:16 | Physician Query ---
PLEASE COMPLETE THE DOCUMENT BEFORE SIGNING Dear Dr. Scott Date: 09/14/2017 Interface Control Officer/CDS' Name:La Hatch [facility]/Malia Valentino Exercise your independent professional judgment when responding to query. Questions asked do not imply particular answer is desired or expected. We greatly appreciate your clarification on this issue. Clinical Documentation States: REASON FOR ADMISSION: 51-year-old female with a history of end-stage renal disease and hypertension,on hemodialysis, atrial fibrillation,on anticoagulation , coronary artery disease with one stent,presented with chest pain for three hours. The patient was admitted with chest pain, rule out acute coronary syndrome.Troponin x2 were negative.EKG revealed atrial fibrillation. Per manager business information, the patient was ruled out for acute coronary syndrome. The patient with a history of coronary artery disease, status post percutaneous coronary intervention. Aspirin and statin were continued. Lipid panel was stable. Previous nuclear stress test at the outside hospital in December 2016 was nonischemic.The patient refused stress test on this admission.Echocardiogram revealed ejection fraction of 40% to 45% with mild global left ventricular hypokinesis,likely due to atrial fibrillation.Mild mitral regurgitation,moderate -to-severe tricuspid regurgitation, right ventricular systolic pressure of 60 consistent with severe pulmonary hypertension. Discharge Summary:The patient was found to have cough. Chest x-ray revealed no evidence of pneumonia. The patient was diagnosed with acute bronchitis. FINAL DIAGNOSES: 1. Atypical chest pain, nonischemic. 2. Coronary artery disease with history of percutaneous coronary intervention. 3. Atrial fibrillation with a controlled ventricular response. 4. Hypertension, stage II. 5. Severe pulmonary hypertension.6. Congestive heart failure. 7. End-stage renal disease, on hemodialysis. 8. Anemia of chronic kidney disease. 9. History of osteodystrophy.10. Malfunctioning arteriovenous fistula.11. Acute bronchitis.12. Major depressive disorder. 13. Cervical radiculopathy.14. Spinal stenosis.15. Status post recent right hip arthroplasty. Please document the suspected etiology of Chest Pain: a.Type: []Cardiac []Non-cardiac []Unspecified b.Etiology - cardiac [] Aortic dissection []Mitral valve prolapsed [] Acute myocardial infarction []Spasm of coronary arteries [] Coronary Artery Disease []Pericarditis c.Etiology - non-cardiac [] Anxiety []Pleurisy [] Cancer []Pneumonia, type [] Costochondritis []Pneumothorax [] GERD/Esophagitis []Pulmonary embolism [] Unable to determine []Other: Please also document in your Progress Notes and/or Discharge Summary and indicate if the condition was present on admission. Keven Scott M.D. Date & Time [facility]
== END 2017-09-06 19:30 | disposition left against medical advice (07) | DRG 198 ==
LOC: EDBD 01:25 → EMR 02:23 → 2E 02:30 → EDBEDREQ 06:52 → ENRESERVDT 08:30 → ENRESERV 08:30 → ENRESERVTM 08:30 → 2E 09:24 → 4E 08-29 21:21
PROC: 5A1D70Z Performance of Urinary Filtration, Intermittent, Less than 6 Hours Per Day (ICD-10-PCS; principal; 2017-08-23)
DX: I25.10 Atherosclerotic heart disease of native coronary artery without angina pectoris (principal); I13.2 Hypertensive heart and chronic kidney disease with heart failure and with stage 5 chronic kidney disease, or end stage renal disease; J90 Pleural effusion, not elsewhere classified; N18.6 End stage renal disease; D69.6 Thrombocytopenia, unspecified; T82.898A Other specified complication of vascular prosthetic devices, implants and grafts, initial encounter; I27.29 Other secondary pulmonary hypertension; E87.70 Fluid overload, unspecified; I48.91 Unspecified atrial fibrillation; M50.10 Cervical disc disorder with radiculopathy, unspecified cervical region; Z99.2 Dependence on renal dialysis; D63.1 Anemia in chronic kidney disease; I50.30 Unspecified diastolic (congestive) heart failure; G89.4 Chronic pain syndrome; F43.10 Post-traumatic stress disorder, unspecified; Z95.5 Presence of coronary angioplasty implant and graft; J20.9 Acute bronchitis, unspecified; F32.9 Major depressive disorder, single episode, unspecified; F41.9 Anxiety disorder, unspecified; I34.0 Nonrheumatic mitral (valve) insufficiency; I36.1 Nonrheumatic tricuspid (valve) insufficiency; I27.20 Pulmonary hypertension, unspecified
CPT/HCPCS: 36415; 71010; 80048; 80053; 80061; 80162; 82607; 82728; 82746; 82962; 82977; 83036; 83540; 83550; 83735; 83880; 84100; 84443; 84484; 84550; 85007; 85025; 85610; 85730; 86140; 86850; 86900; 86901; 86920; 87070; 87081; 87205; 93005; 93306; 93970; 94640; 94664; J7620